=== PATIENT | male | born 1950 | race Caucasian/White ===

== ENCOUNTER 2019-11-02 15:00 | Outpatient (RCR) | payer MEDICARE, SELFPAY ==
[2019-08-23 13:55] VITALS: BMI 28.3
[2019-08-23 13:56] VITALS: BMI 28.3
== END 2019-11-21 23:59 | disposition home or self-care (01) ==
LOC: ANHDMC 15:00
PROVIDERS: Visit Provider Internal Medicine
DX: E11.65 Type 2 diabetes mellitus with hyperglycemia (principal); Z71.3 Dietary counseling and surveillance; Z71.89 Other specified counseling
CPT/HCPCS: 97802; G0108

== ENCOUNTER 2020-03-06 14:30 | Outpatient (RCR) | payer MEDICARE, SELFPAY | END 2020-03-06 16:05 | disposition home or self-care (01) | LOC: ANHDMC 14:30 | PROVIDERS: Visit Provider Internal Medicine | DX: E11.65 Type 2 diabetes mellitus with hyperglycemia (principal); Z71.89 Other specified counseling | CPT/HCPCS: G0108 ==

== ENCOUNTER 2020-06-28 09:59 | Outpatient (CLI) | payer MEDICARE, SELFPAY ==
--- NOTE | ~2020-06-28 | CT_ITS ---
EXAMINATION: CT BRAIN W/O DATE: 06/28/2020 10:30 INDICATION: Frequent falls. Weight loss. TECHNIQUE: Computed tomography (CT) of the head was performed without intravenous contrast. The dose- length product was 605.33 mGy-cm. Automated exposure control and iterative reconstruction technique w ere employed. COMPARISON: CT dated 03/03/2018 FINDINGS: Normal brain parenchymal volume for age. Normal richard-white differentiation. No acute intrac ranial hemorrhage, infarction, mass or mass effect. No ventriculomegaly or midline shift. Midline sagittal images demonstrate a normal corpus callosum, c raniovertebral junction and sella turcica. Basilar cisterns are patent. Paranasal sinuses and mastoids are pneumatized. No depressed skull fractures. IMPRESSION: 1. No acute intracranial abnormality. Reviewed, dictated and finalized at location A.
== END 2020-06-28 10:00 | disposition home or self-care (01) ==
PROVIDERS: PCP Internal Medicine; Visit Provider Internal Medicine
DX: R29.6 Repeated falls (principal)
CPT/HCPCS: 70450

== ENCOUNTER 2020-07-03 13:57 | Outpatient (RCR) | payer MEDICARE, SELFPAY | END 2020-07-03 14:58 | disposition home or self-care (01) | LOC: ANHDMC 13:57 | PROVIDERS: PCP Internal Medicine; Visit Provider Internal Medicine | DX: E11.65 Type 2 diabetes mellitus with hyperglycemia (principal) | CPT/HCPCS: 99199 ==

== ENCOUNTER 2020-07-30 11:26 | Outpatient (CLI) | payer MEDICARE, SELFPAY ==
[2020-07-30 11:47] LABS: Basophils Percent Auto 0.5 % (0.2-1.2); Eosinophils Absolute Auto 0.1 K/mm3 (0-0.3); Eosinophils Percent Auto 1.7 % (0-4.4); Hematocrit 45.5 % (42.0-52.0); Hemoglobin 15.3 g/dL (14.0-18.0); Immature Granulocyte Absolute 0.03 K/mm3 (0.00-0.031); Immature Granulocyte Percent A 0.5 % (0-0.5); Lymphocytes Absolute Auto 1.37 K/mm3 (0.9-3.2); Lymphocytes Percent Auto 21.1 % (18.3-44.2); Mean Corpuscular HGB Conc 33.6 g/dl (32-36); Mean Corpuscular Hemoglobin 30.4 pg (26-34); Mean Corpuscular Volume 90.5 fl (80-100); Mean Platelet Volume 8.2 fl (7.4-10.4); Monocytes Absolute Auto 0.6 K/mm3 (0.1-0.6); Monocytes Percent Auto 9.7 % (2.6-8.5); Neutrophils Absolute Auto 4.3 K/mm3 (1.3-6.7); Neutrophils Percent Auto 66.5 % (45.5-73.1); Platelet Count Result 242 k/mm3 (150-375); Red Blood Count 5.03 M/mm3 (4.6-6.20); Red Cell Distribution Width 11.7 % (11.5-14.5); White Blood Count 6.5 K/mm3 (4.5-10.0)
[2020-07-30 11:52] LABS: Blood Urea Nitrogen 21 mg/dL (8-26); Carbon Dioxide 25 mmol/L (22-30); Chloride 104 mmol/L (98-109); Estimated Glomerular Filt Rate > 60; Glucose 110 mg/dL (70-105); Potassium 4.2 mmol/L (3.5-4.9); Sodium 138 mmol/L (138-146)
[2020-07-30 13:13] LABS: Alanine Aminotransferase 20 U/L (4-50); Albumin Level 4.2 g/dL (3.5-5.1); Alkaline Phosphatase 115 U/L (38-126); Anion Gap 8 mmol/L (8-16); Aspartate Amino Transferase 24 U/L (17-59); Bilirubin,Total 0.4 mg/dL (0.2-1.3); Blood Urea Nitrogen 22 mg/dL (9-20); Carbon Dioxide 26 mmol/L (22-30); Chloride 105 mmol/L (98-107); Estimated Glomerular Filt Rate > 60; Glucose 109 mg/dL (75-110); Potassium 4.5 mmol/L (3.4-5.0); Sodium 139 mmol/L (137-145)
[2020-07-30 13:29] LABS: Immunoglobulin A 373 mg/dL (70-400); Immunoglobulin G 1289 mg/dL (700-1600); Immunoglobulin M 39 mg/dL (40-230)
[2020-08-01 22:55] LABS: Albumin 4.1 g/dL (3.8-4.8); Alpha 1 Globulin 0.3 g/dL (0.2-0.3); Alpha 2 Globulin 0.7 g/dL (0.5-0.9); Beta 1 Globulin 0.5 g/dL (0.4-0.6); Gamma Globulin 1.2 g/dL (0.8-1.7); Protein, Total 7.4 g/dL (6.1-8.1)
[2020-08-01 23:14] LABS: Kappa\\Lambda Light Chains 1.14 (0.26-1.65); Lambda Light Chain 19.6 mg/L (5.7-26.3)
== END 2020-07-30 11:27 | disposition home or self-care (01) ==
PROVIDERS: PCP Internal Medicine; Visit Provider Internal Medicine Hematology & Oncology
DX: D72.9 Disorder of white blood cells, unspecified (principal)
CPT/HCPCS: 36415; 80048; 80053; 82784; 83883; 84155; 84165; 85025; 86334

== ENCOUNTER 2020-09-07 10:01 | Observation (INO) | payer MEDICARE, SELFPAY ==
[2020-09-07] VITALS (10 sets, daily range): BP systolic 93–129; BP diastolic 64–80; PULSE 73–91; RESP 14–20; TEMP 36.6–37.1; O2SAT 92–97; BMI 55.3
--- NOTE | ~2020-09-07 | MR_ITS ---
EXAMINATION: MR cervical spine wo con DATE: 09/10/2020 14:58 INDICATION: Abnormal gait. TECHNIQUE: Magnetic resonance imaging (MRI) of the cervical spine was performed without intravenous c ontrast. Sequences included sagittal T2-weighted FSE, sagittal T2-weighted FS FSE, sagittal T1-weight ed FSE, axial MERGE, and axial T2-weighted FSE. COMPARISON: CT cervical spine 09/07/2020 FINDINGS: There is kyphosis of cervical spine. There are changes of anterior fusion procedure from C5 to C7 with discectomies, healed interbody bone graft, and anterior plate and screws. There is mild c hronic anterior wedging of T1 and T2 vertebral bodies. There is severely decreased disc height at C2- C3, moderately decreased disc height at C3-C4, mildly decreased disc height at C4-C5, and severely de creased disc height at C7-T1 and T1-T2. The spinal cord signal intensity is normal. The following dis c levels are specifically discussed: C2-C3: There is a central extrusion. There is severe bilateral uncovertebral joint osteoarthritis. Th ere is severe left facet joint osteoarthritis. There is ankylosis of right facet joint with severe hy pertrophy. There is moderate bilateral neural foraminal stenosis. There is mild central canal stenosi s with ventral indentation of the spinal cord. C3-C4: The disc is bulging. There is severe bilateral uncovertebral joint osteoarthritis. There is se kiarra bilateral facet joint osteoarthritis. There is severe bilateral neural foraminal stenosis. There is moderate central canal stenosis with ventral and dorsal indentation of the spinal cord. C4-C5: The disc is bulging. There is severe bilateral uncovertebral joint osteoarthritis. There is se kiarra bilateral facet joint osteoarthritis. There is moderate right and severe left neural foraminal s tenosis. There is mild central canal stenosis with ventral indentation of the spinal cord. C5-C6: There is mild right and moderate left uncovertebral joint hypertrophy. There is mild bilateral facet joint hypertrophy. There is mild bilateral neural foraminal stenosis. There is mild central ca nal stenosis. C6-C7: There is moderate bilateral uncovertebral joint hypertrophy. There is no facet joint hypertrop hy. There is mild right and moderate left neural foraminal stenosis. There is no central canal stenos is. C7-T1: The disc is bulging. There is severe bilateral uncovertebral joint osteoarthritis. There is se kiarra bilateral facet joint osteoarthritis. There is mild right and moderate left neural foraminal moreno nosis. There is mild central canal stenosis. IMPRESSION: 1. Severe cervical spondylosis. 2. Anterior fusion procedure from C5 to C7. Reviewed, dictated and finalized at location A.
--- NOTE | ~2020-09-07 | CT_ITS ---
EXAMINATION: CT brain wo con, CT cervical spine wo con EXAM DATE: 09/07/2020 12:56 INDICATION: Head injury, scalp abrasion. Frequent falls. TECHNIQUE: Spiral CT of the head was performed without contrast. Axial, coronal and sagittal images were reviewed. Spiral CT of the cervical spine was performed without contrast. Axial images were rev iewed. Coronal and sagittal reformatted images were also reviewed. The dose-length product (DLP) fo r this examination was 605.33 (accession [id number]), 450.74 (accession [id number]) mGy-cm. The exposure was tailored according to patient size, and iterative reconstruction (ASIR) was used as additional dose reduction technique. Comparison is made to prior examination from 06/28/2020. FINDINGS: HEAD CT: There is no acute intraparenchymal hemorrhage. No evidence of intraparenchymal brain mass l esion. No evidence of acute infarction. There is mild periventricular and subcortical hypodensity, n onspecific but probably related to small vessel ischemic disease. There is mild prominence of the s ulci and ventricles related to cerebral atrophy. There is no mass effect or midline shift. There i s no obstructive hydrocephalus suspected. There are no extra-axial collections. There are no acute calvarial fractures. Patient has had right-sided ocular lens surgery. Small left posterior scalp co ntusion. The visualized sinuses and mastoid air cells are well aerated. CERVICAL CT: Anterior fusion plate C5-6. There is osseous fusion of the C5-7 vertebral bodies. There is severe disc disease at C7-T1, moderate at the upper cervical levels. There is severe left neural f oraminal stenosis at C2-3 and bilaterally at C3-4 there is severe left-sided upper cervical facet art hropathy. Fused right C2-3 facet joints. There is no evidence of acute cervical fracture. The odonto id process is intact. Pre-dens space is normal. Prevertebral soft tissue is normal. There are no s oft tissue abnormalities identified. There is no disc space widening or traumatic vertebral body sub luxation suspected. There is mild reversal of the normal cervical lordosis which may be degenerative, positional or spasm. A detailed level by level evaluation of spondylosis can be added as addendum if requested. IMPRESSION: 1. No acute intracranial findings or cervical fracture. 2. Advanced upper cervical spondylosis. 3. Small posterior scalp contusion. Reviewed, dictated and finalized at location B. IMPRESSION: 1. No acute intracranial findings or cervical fracture. 2. Advanced upper cervical spondylosis. 3. Small posterior scalp contusion.
--- NOTE | ~2020-09-07 | XR_ITS ---
EXAMINATION: XR ribs RT 2V w CXR 2V DATE: 09/07/2020 10:49 INDICATION: Right rib pain. Fall. TECHNIQUE: Frontal and lateral views of the chest and 3 views of the right ribs were obtained. COMPARISON: Chest 2 views 12/22/2016, CT abdomen and pelvis 04/26/2014 FINDINGS: CHEST TWO VIEWS: There is chronic mild elevation of left hemidiaphragm. There is mild atelectasis at left lung base. A calcified left lung nodule and calcified left hilar lymph nodes are consistent with old adenomatous disease. No pleural effusion or pneumothorax. The heart size is normal. There are ch anges of anterior fusion procedure in cervical spine. There are bridging endplate osteophytes at mult iple levels in the spine, consistent with diffuse idiopathic skeletal hyperostosis (DISH). RIGHT RIBS: There are multiple old right rib fractures including nonunion of a fracture of right 10th rib. There are acute fractures of right ninth and 11th ribs. IMPRESSION: 1. Acute fractures of right ninth and 11th ribs. 2. Mild atelectasis at left lung base. Reviewed, dictated and finalized at location A.
--- NOTE | ~2020-09-07 | MR_ITS ---
EXAMINATION: MR brain/brain stem wo con DATE: 09/10/2020 14:58 INDICATION: Abnormal gait. TECHNIQUE: Magnetic resonance imaging (MRI) of the brain and brainstem was performed without intraven ous contrast. Sequences included sagittal and axial T1-weighted FSE, axial diffusion-weighted FS EPI, axial T2*-weighted GRE, axial T2-weighted FLAIR Propeller, and axial T2-weighted Propeller. Apparent diffusion coefficient (ADC) maps were created. COMPARISON: Head CT 09/07/2020, brain MRI 09/27/2014 FINDINGS: There are scattered areas of nonspecific increased T2-weighted signal intensity in the cere bral white matter, which is within normal limits for the patient's age. There is no intracranial hemo rrhage, acute infarction, or abnormal intracranial mass lesion. The ventricles are normal in size. Th e paranasal sinuses are clear. There are likely changes of right ocular lens replacement surgery. The re are trace bilateral mastoid effusions. IMPRESSION: 1. Normal aging brain. Reviewed, dictated and finalized at location A. IMPRESSION: 1. Normal aging brain.
--- NOTE | ~2020-09-07 | CT_ITS ---
EXAMINATION: CT abd pelvis lumbar w con DATE: 09/07/2020 12:56 INDICATION: Abdominal injury. Low back injury. TECHNIQUE: Computed tomography (CT) of the abdomen and pelvis and lumbar spine was performed with 100 mL Omnipaque 350 intravenous contrast. Automated exposure control and iterative reconstruction techn ique were employed. The dose-length product was 1117.99 mGy-cm. COMPARISON: abdomen and pelvis CT 04/26/14, chest two views 12/22/16 FINDINGS: CT ABDOMEN AND PELVIS: The visualized portions of the lung bases demonstrate mild atelectasis. Calcif ied left lung nodules and calcified left hilar lymph nodes are consistent with old granulomatous dise ase. There is a small right pleural effusion. The heart size is normal. There are coronary artery shreyas cifications. There is ectasia of the sinuses of Valsalva measuring 4.5 cm, but motion artifact decrea ses accuracy. There are calcifications of the aortic valve. No pericardial effusion. The liver is nor mal. There are changes of cholecystectomy. Calcifications in the spleen are consistent with old granu lomatous disease. The pancreas, adrenal glands, and right kidney are normal. There is a 3 mm stone in left kidney. The prostate is mildly enlarged. The proximal colon is distended, consistent with adyna shira ileus. There are no pathologically enlarged lymph nodes. There is no free intraperitoneal fluid. There are old healed bilateral rib fractures. There are acute fractures of right eighth, ninth, 10th, 11th, and 12th ribs. There are old healed transverse process fractures in the lumbar spine on the ri ght at L3 and on the left from L1 to L3. CT LUMBAR SPINE: There is dextroscoliosis of thoracolumbar spine. There is 4 mm anterolisthesis of L4 on L5. There is a compression fracture of L1 with 1/5 loss of height. There is severely decreased di sc height at L1-L2 and L2-L3 and mildly decreased disc height at L3-L4 and L4-L5. There is Baastrup d isease at L3-L4 and L4-L5. The following disc levels are specifically discussed: L1-L2: The disc is bulging. There is severe right and mild left facet joint osteoarthritis. There is mild right and moderate left neural foraminal stenosis. There is mild central canal stenosis. L2-L3: The disc is bulging. There is severe bilateral facet joint osteoarthritis. There is moderate b ilateral neural foraminal stenosis. There is mild central canal stenosis. L3-L4: The disc is bulging. There is severe bilateral facet joint osteoarthritis. There is moderate b ilateral neural foraminal stenosis. There is moderate central canal stenosis. L4-L5: The disc is bulging. There is severe bilateral facet joint osteoarthritis. There is moderate b ilateral neural foraminal stenosis. There is mild central canal stenosis. L5-S1: The disc is bulging. There is severe bilateral facet joint osteoarthritis. There is mild bilat eral neural foraminal stenosis. There is mild central canal stenosis. IMPRESSION: 1. Acute fractures of right 8th-12th ribs. 2. Small right pleural effusion. 3. Age-indeterminate L1 compression fracture, new from 12/22/16. 4. Severe lumbar spondylosis. Reviewed, dictated and finalized at location A.
--- NOTE | ~2020-09-07 | XR_ITS ---
EXAMINATION: XR lumbar spine 2-3V DATE: 09/07/2020 10:49 INDICATION: Right-sided low back pain TECHNIQUE: Anteroposterior and lateral views of the lumbar spine, and cone-down lateral view of the l umbosacral junction were obtained. COMPARISON: CT urogram dated 04/26/2014 FINDINGS: 8 mm anterolisthesis L4 on L5. Age-indeterminate L1 compression fracture with 20% anterior vertebral body height loss which is new since 2014. No evident linear lucency or sclerosis or sharply angulated cortex to raise suspicion for acute fracture. Remaining vertebral body heights are normal. Severe di sc height loss at L2-L3. Moderate disc height loss at T10-T11 and T11-T12, mild to moderate disc heig ht loss at L4-L5 and mild disc height loss at L1-L2 and L3-L4. Moderate to severe facet osteoarthriti s in the mid to lower lumbar spine. Mild osteoarthritis at the bilateral sacral iliac joints. Multipl e phleboliths in the pelvis. Cholecystectomy clips in right upper quadrant. IMPRESSION: 1. Age-indeterminate but chronic appearing L1 compression fracture with 20% anterior vertebral body h eight loss, new since 2014. 2. Moderate to severe lumbar spondylosis. Reviewed, dictated and finalized at location A. IMPRESSION: 1. Age-indeterminate but chronic appearing L1 compression fracture with 20% ant erior vertebral body height loss, new since 2014. 2. Moderate to severe lumbar spondylosis.
--- NOTE | 2020-09-07 10:31 | ED.FALL ---
HPI - Fall General Chief Complaint: Fall Stated Complaint: Fall/R Back Pain Time Seen by Provider: 09/07/20 10:04 Source: patient Mode of arrival: wheelchair Limitations: no limitations History of Present Illness HPI Narrative: Patient is a 70 year old male who presents complaining of lumbar spine pain and right rib pain after fall yesterday. Patient reports losing balance at pharmacy after getting Covid vaccine. Patient denies dizziness prior to fall. Patient reports falling and hitting table. He denies hitting head or neck, he is not on anticoagulants. He also reports fall yesterday at home also hitting back but not neck and head. He denies taking otc medications for pain. Patient reports frequent falls because of Parkinson's. He denies chest pain or shortness of breath at this time. MD complaint: fall Related Data Home Medications Medication Instructions Recorded Confirmed albuterol sulfate 90 mcg/actuation 1 puff INHALATION Q4H PRN 05/25/20 07/04/20 aerosol inhaler aspirin 81 mg tablet,delayed 81 mg PO DAILY 05/25/20 07/04/20 release atorvastatin 80 mg tablet 80 mg PO DAILY 05/25/20 07/04/20 bupropion HCl 150 mg tablet,12 hr 150 mg PO BID 05/25/20 07/04/20 sustained-release buspirone 5 mg tablet 5 mg PO TID 05/25/20 07/04/20 cholecalciferol (vitamin D3) 50 50 mcg PO DAILY 05/25/20 07/04/20 mcg (2,000 unit) capsule dapagliflozin 10 mg tablet 10 mg PO DAILY 05/25/20 07/04/20 lisinopril 2.5 mg tablet 2.5 mg PO DAILY 05/25/20 07/04/20 metformin 1,000 mg tablet 1,000 mg PO DAILY 05/25/20 07/04/20 olanzapine 2.5 mg tablet 2.5 mg PO DAILY 05/25/20 07/04/20 omeprazole 20 mg capsule,delayed 20 mg PO DAILY 05/25/20 07/04/20 release pen needle, diabetic 32 gauge x #50 ea 05/25/20 06/19/20/32 sotalol 80 mg tablet 80 mg PO BID tablet 05/25/20 07/04/20 trazodone 100 mg tablet 100 mg PO HS 05/25/20 07/04/20 Allergies Allergy/AdvReac Type Severity Reaction Status Date / Time No Known Drug Allergies Allergy Unknown Unknown Verified 09/07/20 10:13 Review of Systems Review of Systems: Narrative: CONSTITUTIONAL: Denies fever, chills, or sweats. EYES: Denies visual changes, redness, or discharge. ENT: Denies rhinorrhea, congestion, sore throat, or otalgia. CARDIOVASCULAR: Denies chest pain, palpitations, or edema. RESPIRATORY: Denies cough or dyspnea. GASTROINTESTINAL: Denies abdominal pain, nausea, vomiting, or diarrhea. GENITOURINARY: Denies dysuria or hematuria. SKIN: Denies rash or itching. MUSCULOSKELETAL: Reports lumbar back pain and right rib pain. NEUROLOGIC: Denies headache, numbness, dizziness, or weakness. PSYCHIATRIC: Denies anxiety or depression. [facility] Past Medical History Medical History Abnormal weight loss CAD (coronary artery disease) Dysphagia GERD (gastroesophageal reflux disease) History of adenomatous polyp of colon HLD (hyperlipidemia) HTN (hypertension) Parkinsons Social History Social History Smoking packs per day: 1 Smoking cigarettes per day: 20.0 Years smoked: 10 Smoking pack-years: 10.00 Smoking status: Former smoker Tobacco type: cigars Alcohol intake: former Substance use: never Substance use type: does not use Spiritual care concerns: No Comments At the time of signature, I have reviewed and agree with nursing past medical, surgical, social, and family history unless otherwise noted. Please see nursing chart for further information. There is no relevant family history pertinent to the presenting complaint. Exam Narrative: Exam Narrative: GENERAL: Well-appearing, well-nourished, and in no acute distress. HEAD: Normocephalic, atraumatic. EYES: EOMI. No redness or drainage. Conjunctiva are normal. ENT: Mucous membranes pink and moist. CHEST: No respiratory distress. Clear to auscultation. HEART: Regular rate and rhythm. No murmur appreciated
[2020-09-07 11:39] LABS: Basophils Percent Auto 0.4 % (0.2-1.2); Eosinophils Percent Auto 0.3 % (0-4.4); Hematocrit 42.8 % (42.0-52.0); Hemoglobin 14.1 g/dL (14.0-18.0); Immature Granulocyte Absolute 0.02 K/mm3 (0.00-0.031); Immature Granulocyte Percent A 0.3 % (0-0.5); Lymphocytes Absolute Auto 0.69 K/mm3 (0.9-3.2); Lymphocytes Percent Auto 8.8 % (18.3-44.2); Mean Corpuscular HGB Conc 32.9 g/dl (32-36); Mean Corpuscular Hemoglobin 29.9 pg (26-34); Mean Corpuscular Volume 90.9 fl (80-100); Mean Platelet Volume 8.6 fl (7.4-10.4); Monocytes Absolute Auto 0.8 K/mm3 (0.1-0.6); Monocytes Percent Auto 10.2 % (2.6-8.5); Neutrophils Absolute Auto 6.3 K/mm3 (1.3-6.7); Platelet Count Result 206 k/mm3 (150-375); Red Blood Count 4.71 M/mm3 (4.6-6.20); Red Cell Distribution Width 11.9 % (11.5-14.5); White Blood Count 7.8 K/mm3 (4.5-10.0)
[2020-09-07 11:53] LABS: Alanine Aminotransferase 15 U/L (4-50); Albumin Level 4.1 g/dL (3.5-5.1); Alkaline Phosphatase 90 U/L (38-126); Anion Gap 10 mmol/L (8-16); Aspartate Amino Transferase 25 U/L (17-59); Bilirubin,Total 0.7 mg/dL (0.2-1.3); Blood Urea Nitrogen 20 mg/dL (9-20); Carbon Dioxide 24 mmol/L (22-30); Chloride 102 mmol/L (98-107); Estimated CRCL calculation 124 ml/min; Estimated Glomerular Filt Rate > 60; Glucose 162 mg/dL (75-110); Potassium 4.3 mmol/L (3.4-5.0); Sodium 136 mmol/L (137-145)
[2020-09-07 13:35] LABS: Add Urine Microscopic? YES; Appearance Urine Clear (Clear); Bilirubin Urine Negative (Negative); Blood Urine Negative (Negative); Color Urine Yellow (Yellow); Glucose Urine UA 3+ mg/dL (Negative); Ketones Urine Negative (Negative); Leukocyte Esterase Ur Negative LEU/UL (Negative); Nitrate Urine Negative (Negative); Protein Urine Negative (Negative); RBC Urine 0-2 /hpf (0-2); Urobilinogen Urine Negative mg/dL (<2.0); WBC Urine 0-3 /hpf
--- NOTE | 2020-09-07 13:35 | PCCCNOTE ---
Care Coordination spoke with pt about discharge needs. Pt lives at [facility]. He reports he has had some falls recently and feels it may be due to his Parkinson's progressing and is ok to look for SNF placement. Pt gave permission to speak with Kaity [phone] his daughter about his needs. Called Kaity and she requested that orthostatic BP be checked as she feels his falls maybe from multiple meds and she states he is having increased problems hearing. He just has 2nd Covid immunization and now can proceed with cataract surgery. Kaity prefers pt return to [facility] if does not need hospital stay. She would like PT/OT ordered. Communicated this with ED PA.
[2020-09-07 13:36] LABS: Specific Grav Ur 1.037 (1.001-1.035)
--- NOTE | 2020-09-07 16:26 | PCCCNOTE ---
Daughter Kaity requests SNF when pt discharged. Requests [facility]. PT/OT eval and tx ordered. Faxed face sheet and ED MD notes to [facility].
--- NOTE | 2020-09-07 16:37 | PC.NURSE ---
Pts daughter Kaity updated with pts admission status.
--- NOTE | 2020-09-07 18:44 | ADMGEN ---
This patient, Alonzo Armenta, was admitted to Medical Room 344-01. Patient/family oriented to hospital policies and general routines including ID bracelet, bed and alarms, visiting hours, pain management, procedures, bathroom and other care routines, personal items, smoking policy, room service/diet, and visiting hours. Information on how to activate the Rapid Response Team has been discussed. Patient/Family are encouraged to report perceived risks to care and to ask questions if they do not understand what they are told or what they should do.
--- NOTE | 2020-09-07 19:53 | PM.IMHP ---
H&P: HPI History of Present Illness Date/Time: 09/07/20 19:53Thiclaudia is a 70-year-old male patient who resides at [facility]. He has a history of Parkinson's. The patient has been having multiple falls due to his Parkinson's. The patient has been taking depression medicine. He states that he has been feeling depressed because he is not the the man that he used to be and cannot go back to [place] that he was. The patient stated that he feels like he wants to every day. The patient wishes that he would . The patient has had thoughts of killing himself nearly every day now. The patient is in the room crying. He is saying that he always left his ex- and always well. He feels that his children are not there for him and cannot take care of himself. The patient came into the emergency room today because he fell in the pharmacy yesterday after getting his COVID vaccine. The patient did not think that he hit his head however as a head CT was performed and it was read as no acute intracranial findings or cervical fracture. Advanced upper cervical spondylosis. Small posterior scalp contusion. CT of the back was read as acute fractures of right 8th through 12th ribs. Small right pleural effusion. Age indeterminate L1 compression fracture new from 12/22/2016. Severe lumbar spondylosis. Rib chest x-ray acute fractures of right 9th through 11th ribs. Mild atelectasis at left lung base. CT of the cervical spine was read as no acute intracranial findings or cervical fracture. Advanced upper cervical spondylosis. Small posterior scalp contusion. The patient was only given IV Tylenol in the emergency room. The patient was admitted to observation status on the date of service of 09/07/2020. Chief Complaint: Fall with fractured ribs Review of Systems Review of Systems: All systems reviewed & are unremarkable except as noted in HPI and below Constitutional: Constitutional: Reports as per HPI and Reports no additional constitutional complaints Eyes: Eyes: Reports as per HPI and Reports no additional eye complaints ENT: Reports system reviewed and no additional complaints, except as documented and Reports Normal hearing present Cardiovascular: Cardiovascular: Reports no additional cardiovascular complaints Respiratory: Respiratory: Reports no additional respiratory complaints and Reports no additional respiratory complaints Gastrointestinal: Gastrointestinal: Reports as per HPI and Reports no additional gastrointestinal complaints Musculoskeletal: Musculoskeletal: Reports no additional musculoskeletal complaints Integumentary/Breasts: Skin/Breast: Reports system reviewed and no additional complaints, except as docu and Reports as per HPI Neurologic: Reports system reviewed and no additional complaints, except as documented, Reports as per HPI and Reports Normal hearing present Psychiatric: Psychiatric: Reports no additional psychiatric complaints and Reports as per HPI Endocrine: Endocrine: Reports no additional endocrine complaints Hematologic/Lymphatic: Hematologic/Lymphatic: Reports no additional hematologic/lymphatic complaints Allergic/Immunologic: Allergic/Immunologic: Reports no additional allergic/immunologic complaints [facility] Past Medical History Medical History (Updated 09/07/20 @ 20:04 by Uma Velazquez NP) Abnormal weight loss Asthma CAD (coronary artery disease) DM2 (diabetes mellitus, type 2) Dysphagia GERD (gastroesophageal reflux disease) History of adenomatous polyp of colon HLD (hyperlipidemia) HTN (hypertension) Myocardial infarction Obstructive sleep apnea no longer wears a CPAP Parkinsons Surgical History Surgical History (Updated 09/07/20 @ 20:04 by Uma Velazquez NP) H/O colonoscopy with polypectomy History of cataract extraction History of coronary artery stent placement x2 Hx of cholecystectomy S/P appendectomy Family History Family History (Reviewed 09/07/20 @ 2
--- NOTE | 2020-09-07 20:23 | PC.NURSE ---
This patient, Alonzo Armenta, was transferred to [ICU-6] on 09/07/20 at 2023. Personal belongings sent with patient. Report given to [ ]. Appropriate documentation sent with patient.
[2020-09-07] MEDS: HYDROcodone/acetaminophen (*CRX) 5-325 MG TABLET 1 TAB PO (20:46)
[2020-09-07 21:40] LABS: Hemoglobin A1C 7.1 % (<5.7)
[2020-09-07] MEDS: SOTALOL HCL 80 MG TABLET PO (22:17)
[2020-09-07] MEDS: traZODone HCL 50 MG TABLET 100 MG PO (22:17)
[2020-09-07] MEDS: busPIRone HCL 5 MG TABLET PO (22:20)
[2020-09-07] MEDS: CARBIDOPA/LEVODOPA 25/100 MG TABLET 1 TABLET PO (22:21)
[2020-09-07 22:29] LABS: Glucose Point of Care 171 mg/dl (65-105)
--- NOTE | 2020-09-07 22:31 | PC.NURSE ---
This patient, Alonzo Armenta, was received from med/surg on 09/07/20 at 2024. Patient oriented to unit policies and routines
[2020-09-07] MEDS: KETOROLAC 15 MG/ML VIAL (*BKC) IV PUSH (23:33)
[2020-09-08] VITALS (7 sets, daily range): BP systolic 91–114; BP diastolic 64–71; PULSE 65–76; RESP 14–18; TEMP 36.6; O2SAT 95–98
[2020-09-08 05:28] LABS: Basophils Percent Auto 0.8 % (0.2-1.2); Eosinophils Absolute Auto 0.1 K/mm3 (0-0.3); Eosinophils Percent Auto 2.8 % (0-4.4); Hematocrit 40.7 % (42.0-52.0); Hemoglobin 13.5 g/dL (14.0-18.0); Immature Granulocyte Absolute 0.02 K/mm3 (0.00-0.031); Immature Granulocyte Percent A 0.4 % (0-0.5); Lymphocytes Absolute Auto 1.29 K/mm3 (0.9-3.2); Lymphocytes Percent Auto 25.7 % (18.3-44.2); Mean Corpuscular HGB Conc 33.2 g/dl (32-36); Mean Corpuscular Hemoglobin 29.8 pg (26-34); Mean Corpuscular Volume 89.8 fl (80-100); Monocytes Percent Auto 20.5 % (2.6-8.5); Neutrophils Absolute Auto 2.5 K/mm3 (1.3-6.7); Neutrophils Percent Auto 49.8 % (45.5-73.1); Platelet Count Result 201 k/mm3 (150-375); Red Blood Count 4.53 M/mm3 (4.6-6.20); Red Cell Distribution Width 11.7 % (11.5-14.5)
[2020-09-08 05:55] LABS: Albumin Level 3.6 g/dL (3.5-5.1); Alkaline Phosphatase 79 U/L (38-126); Anion Gap 8 mmol/L (8-16); Aspartate Amino Transferase 20 U/L (17-59); Bilirubin,Total 0.4 mg/dL (0.2-1.3); Blood Urea Nitrogen 18 mg/dL (9-20); Calcium 8.9 mg/dL (8.4-10.2); Carbon Dioxide 26 mmol/L (22-30); Chloride 105 mmol/L (98-107); Estimated CRCL calculation 164 ml/min; Estimated Glomerular Filt Rate > 60; Glucose 98 mg/dL (75-110); Sodium 139 mmol/L (137-145)
[2020-09-08 06:16] LABS: Alanine Aminotransferase < 4 U/L (4-50)
[2020-09-08 08:28] LABS: Glucose Point of Care 114 mg/dl (65-105)
[2020-09-08] MEDS: VENLAFAXINE HCL XR 75 MG CAP.ER.24H 150 MG PO (09:08)
[2020-09-08] MEDS: lisinopriL 2.5 MG TABLET PO (09:09)
[2020-09-08] MEDS: CARBIDOPA/LEVODOPA 25/100 MG TABLET 1 TABLET PO ×4 (09:09→20:29)
[2020-09-08] MEDS: busPIRone HCL 5 MG TABLET PO ×3 (09:09→17:21)
[2020-09-08] MEDS: CHOLECALCIFEROL 1,000 UNITS TABLET 2000 UNITS PO (09:09)
[2020-09-08] MEDS: SOTALOL HCL 80 MG TABLET PO ×3 (09:09→17:21)
[2020-09-08] MEDS: rOPINIRole HCL 1 MG TABLET PO ×2 (09:09→20:29)
[2020-09-08] MEDS: metFORMIN HCL 500 MG TABLET 1000 MG PO ×2 (09:09→17:21)
[2020-09-08] MEDS: MAGNESIUM OXIDE 400 MG TABLET PO (09:09)
[2020-09-08] MEDS: PANTOPRAZOLE 40 MG TABLET PO (09:09)
[2020-09-08 11:41] LABS: Glucose Point of Care 202 mg/dl (65-105)
[2020-09-08] MEDS: INSULIN ASPART (*BKC) 100 UNITS/ML SUB-Q (11:45)
[2020-09-08] MEDS: FUROSEMIDE 40 MG TABLET PO (11:45)
--- NOTE | 2020-09-08 13:23 | WPDNEURCNPN ---
Assessment and Plan Assessment and plan (1) Depression with suicidal ideation: Code(s): F32.9 - Major depressive disorder, single episode, unspecified; R45.851 - Suicidal ideations Status: Acute Additional Plan elderly person with ongoing depression with suicidal ideation in addition to history of recent fall getting an acute fracture of the right 8th to 12th rib with small right pleural effusion and age indeterminate L1 compression fracture new from December 22, 2016 with severe lumbar spondylosis patient has been on antidepressant medication but not sure whether he has been compliant additionally has ongoing history of Parkinson disease we will continue his medication as such and also he will need the follow-up in the office he is taking carbidopa levodopa 2501 tablet 4 times a day for the time being it is fine I will reexamine and readjust the dosage accordingly Consult date: 09/08/20 Time Seen: 13:00 HPI: Alonzo Armenta is a 70 year old maleAdmitted to the hospital on [facility] patient carries the diagnosis of Parkinson's disease and has been experiencing recurrent falls in addition patient has been taking antidepressant medication he has been experiencing thoughts of killing himself, being a man of he wanted to be and reportedly he was crying in the room initial evaluation in the emergency room included a CT scan which was negative with no evidence of bleed and the CT scan cervical spine was also without any fracture or dislocation though advanced cervical spondylosis he was also noted to have small posterior scalp contusion in addition CT of the back documented the acute fracture of the right 8 through 12th ribs and small right pleural effusion and indeterminate L1 compression fracture new from December 22, 2016 with severe lumbar spondylosis there was mild atelectasis at the left lung base as well PMFSH Past Medical History Medical History Abnormal weight loss Asthma CAD (coronary artery disease) DM2 (diabetes mellitus, type 2) Dysphagia GERD (gastroesophageal reflux disease) History of adenomatous polyp of colon HLD (hyperlipidemia) HTN (hypertension) Myocardial infarction Obstructive sleep apnea no longer wears a CPAP Parkinsons Surgical History Surgical History H/O colonoscopy with polypectomy History of cataract extraction History of coronary artery stent placement x2 Hx of cholecystectomy S/P appendectomy Family History Family History Father Emphysema lung Mother Cerebrovascular accident Sibling Acute myocardial infarction Sibling Suicide Social History Social History Social History: the patient lives at [facility]. He has a son and a daughter. The patient is a full code and he does not have a durable power commercial litigation attorney for healthcare. His son is Mayo who is the printed circuit boards contact printer. The patient is retired from [employer] . He is . He is a former smoker. He does not use any marijuana or alcohol. Smoking packs per day: 1 Smoking cigarettes per day: 20.0 Years smoked: 10 Smoking pack-years: 10.00 Smoking status: Former smoker Tobacco type: cigars Additional smoking assessment comments: used to smoke occasional cigar Alcohol intake: former Drinks per week: 3 Substance use: never Substance use type: does not use Gender identity (if verbalized by the patient): Male Spiritual care concerns: No Meds Home Medications and Allergies Home Medications Medication Instructions Recorded Confirmed Type albuterol sulfate 90 mcg/actuation 2 puff INHALATION Q4H PRN 05/25/20 09/07/20 History aerosol inhaler buspirone 5 mg tablet 5 mg PO TID 05/25/20 09/07/20 History cholecalciferol (vitamin D3) 50 50 mcg PO DAILY 05/25/20 09/07/20 H
--- NOTE | 2020-09-08 14:03 | PM.DS ---
DS: Summary Time Spent with Patient Time attestation: Total time spent providing and/or coordinating discharge services: DS: Data Data Completed and Pending Labs on day of discharge: Labs from last 24 hours 09/08/20 09/08/20 09/08/20 11:39 08:04 04:10 WBC RBC Hgb Hct MCV MCH MCHC RDW Plt Count MPV Immature Gran % (Auto) Neut % (Auto) Lymph % (Auto) [place] % (Auto) Eos % (Auto) Baso % (Auto) Lymph # (Auto) [place] # (Auto) Eos # (Auto) Baso # (Auto) Abs Immat Gran (auto) Absolute Neuts (auto) Absolute Nucleated RBC Nucleated RBC % Sodium Potassium Chloride Carbon Dioxide Anion Gap BUN Creatinine Estim Creat Clear Calc Estimated GFR Glucose POC Capillary Glucose 202 H 114 H Hemoglobin A1c Calcium Magnesium Total Bilirubin AST ALT Alkaline Phosphatase Total Protein Albumin TSH (Reflex) 1.760 09/08/20 09/08/20 09/07/20 04:10 04:10 22:27 WBC 5.0 RBC 4.53 L Hgb 13.5 L Hct 40.7 L MCV 89.8 MCH 29.8 MCHC 33.2 RDW 11.7 Plt Count 201 MPV 9.0 Immature Gran % (Auto) 0.4 Neut % (Auto) 49.8 Lymph % (Auto) 25.7 [place] % (Auto) 20.5 H Eos % (Auto) 2.8 Baso % (Auto) 0.8 Lymph # (Auto) 1.29 [place] # (Auto) 1.0 H Eos # (Auto) 0.1 Baso # (Auto) 0.0 Abs Immat Gran (auto) 0.02 Absolute Neuts (auto) 2.5 Absolute Nucleated RBC 0.0 Nucleated RBC % 0.0 Sodium 139 Potassium 4.0 Chloride 105 Carbon Dioxide 26 Anion Gap 8 BUN 18 Creatinine 0.60 L Estim Creat Clear Calc 164 Estimated GFR > 60 Glucose 98 POC Capillary Glucose 171 H Hemoglobin A1c Calcium 8.9 Magnesium 2.0 Total Bilirubin 0.4 AST 20 ALT < 4 L Alkaline Phosphatase 79 Total Protein 7.0 Albumin 3.6 TSH (Reflex) 09/07/20 11:30 WBC RBC Hgb Hct MCV MCH MCHC RDW Plt Count MPV Immature Gran % (Auto) Neut % (Auto) Lymph % (Auto) [place] % (Auto) Eos % (Auto) Baso % (Auto) Lymph # (Auto) [place] # (Auto) Eos # (Auto) Baso # (Auto) Abs Immat Gran (auto) Absolute Neuts (auto) Absolute Nucleated RBC Nucleated RBC % Sodium Potassium Chloride Carbon Dioxide Anion Gap BUN Creatinine Estim Creat Clear Calc Estimated GFR Glucose POC Capillary Glucose Hemoglobin A1c 7.1 H Calcium Magnesium Total Bilirubin AST ALT Alkaline Phosphatase Total Protein Albumin TSH (Reflex) Discharge Plan Discharge Attending physician on discharge: Alyssia Henriquez Consulting providers: David Blanco Discharging Clinician: Alyssia Henriquez Anticipated Discharge Date/Time: 09/08/20 14:01 Patient Instructions: Heart Failure (DC) Discharge Medications: New hydrocodone-acetaminophen 5-325 mg Tablet 1 tablet PO Q6H PRN (Reason: Pain) 3 Days Qty: 12 RF: 0 Continued furosemide 40 mg tablet 40 mg PO DAILY RF: 0 ropinirole 1 mg tablet 1 mg PO DAILY RF: 0 venlafaxine 150 mg capsule,extended release 24hr 150 mg PO DAILY RF: 0 magnesium oxide 400 mg (241.3 mg magnesium) tablet 400 mg PO DAILY RF: 0 carbidopa-levodopa 25-100 mg tablet 1 tablet PO QID RF: 0 albuterol sulfate 90 mcg/actuation HFA aerosol inhaler 2 puff inhalation Q4H PRN (Reason: Shortness Of Breath Or Wheezing) RF: 0 buspirone 5 mg tablet 5 mg PO TID RF: 0 lisinopril 2.5 mg tablet 2.5 mg PO DAILY RF: 0 metformin 1,000 mg tablet 1,000 mg PO BID RF: 0 omeprazole 20 mg capsule,delayed release(DR/EC) 20 mg PO DAILY RF: 0 sotalol 80 mg tablet 80 mg PO TID RF: 0 trazodone 100 mg tablet 100 mg PO HS RF: 0 cholecalciferol (vitamin D3) 50 mcg (2,000 unit) capsule 50 mcg PO DAILY RF: 0 olanzapine [Zyprexa] 2.5 mg tablet 2.5 mg PO DAILY RF: 0 Date of admission: 09/07/20 15:56
[2020-09-08 16:14] LABS: Glucose Point of Care 159 mg/dl (65-105)
--- NOTE | 2020-09-08 17:26 | PM.IMPN ---
Progress Note: A&P Assessment and Plan (1) Depression with suicidal ideation: Code(s): F32.9 - Major depressive disorder, single episode, unspecified; R45.851 - Suicidal ideations Status: Acute (2) Multiple fractures of ribs: Qualifiers: Encounter type: initial encounter Fracture type: closed Laterality: right Qualified Code(s): S22.41XA - Multiple fractures of ribs, right side, initial encounter for closed fracture Code(s): S22.49XA - Multiple fractures of ribs, unspecified side, initial encounter for closed fracture Status: Acute Assessment and Plan: (3) DM2 (diabetes mellitus, type 2): Code(s): E11.9 - Type 2 diabetes mellitus without complications Status: Chronic Assessment and Plan: Accu-Cheks AC and HS. Check A1c. He is on metformin at home. (4) HTN (hypertension): Code(s): I10 - Essential (primary) hypertension Status: Chronic (5) Parkinsons: Code(s): G20 - Parkinson's disease Status: Acute (6) HLD (hyperlipidemia): Code(s): E78.5 - Hyperlipidemia, unspecified Status: Chronic Assessment and Plan: Continue with home medications. (7) CAD (coronary artery disease): Code(s): I25.10 - Atherosclerotic heart disease of [place] coronary artery without angina pectoris Status: Acute Assessment and Plan: The patient stated he has history of 2 cardiac stents. He is only on aspirin. (8) GERD (gastroesophageal reflux disease): Code(s): K21.9 - Gastro-esophageal reflux disease without esophagitis Status: Acute Assessment and Plan: Continue with home medication of omeprazole. (9) Asthma: Code(s): J45.909 - Unspecified asthma, uncomplicated Status: Chronic Additional Plan 09/08/2020 Medically patient is stable Continue pain regimen he will require adjustment of his Parkinson's regimen as an outpatient as well as physical therapy and rehab for improved gait stability and safe mobility Neuro recommendations appreciated Continue current care Crisis evaluation Anticipate discharge hopefully to SNF tomorrow if cleared by crisis and accepted to facility. Time Spent With Patient Time with patient: 25 - 35 minutes Subjective Date/time seen: 09/08/20 17:26 Patient doing okay complains of pain improved with Mayer. He is having recurring falls for quite a long time living in an [facility]. He reports that he is upset because he fell down, and feels sad that he is from his of 47 years. Patient has been seen by Neurology no adjustment of medications at this time indications given a follow-up after discharge. Exam Const: General: cooperative, healthy appearing, comfortable, no acute distress, well developed, alert, awake and Physically active Nutritional Appearance: average body habitus and well nourished Orientation/consciousness: oriented to person, oriented to place, oriented to time and patient oriented x3 HENMT: Head: normal to inspection, normocephalic and other ( scalp abrasion small posterior scalp contusion) Ears: hearing grossly normal bilaterally and external ears normal General nose exam: Normal external nose present, Normal nares present and No nasal polyps present Eyes: General: appearance normal, both eyes and all related structures Alignment and Position: alignment normal Periorbital: periorbital findings normal Eyelids: eyelids normal Conjunctivae: conjunctivae normal Sclera: sclerae normal Cornea: corneas normal Pupils: Equal, round and reactive pupils present EOM: EOMs intact bilaterally Neck: Neck: normal visual inspection, full ROM, no lymphadenopathy, trachea midline and supple Chest: Chest palpation & inspection: normal inspection of the chest Resp: Effort & Inspection: normal respiratory effort Auscultation: clear to auscultation bilaterally Cardio: Rate: regular rate Rhythm: regular rhythm Heart sounds: S1 normal heart sound
[2020-09-08] MEDS: traZODone HCL 50 MG TABLET 100 MG PO (20:29)
[2020-09-08] MEDS: KETOROLAC 15 MG/ML VIAL (*BKC) IV PUSH (20:29)
[2020-09-08 22:04] LABS: Glucose Point of Care 185 mg/dl (65-105)
[2020-09-09] VITALS (15 sets, daily range): BP systolic 84–120; BP diastolic 54–75; PULSE 54–74; RESP 16–20; TEMP 36.4–36.9; O2SAT 96–98
[2020-09-09] MEDS: SODIUM CHLORIDE 0.9% IV 500 ML 999 ML IV CONT ×2 (01:28→03:12)
[2020-09-09] MEDS: ACETAMINOPHEN 325 MG TABLET 650 MG PO ×2 (04:15→19:53)
[2020-09-09 05:43] LABS: Hematocrit 39.7 % (42.0-52.0); Mean Corpuscular HGB Conc 32.7 g/dl (32-36); Mean Corpuscular Hemoglobin 30.4 pg (26-34); Mean Corpuscular Volume 92.8 fl (80-100); Mean Platelet Volume 8.9 fl (7.4-10.4); Platelet Count Result 186 k/mm3 (150-375); Red Blood Count 4.28 M/mm3 (4.6-6.20); Red Cell Distribution Width 11.9 % (11.5-14.5); White Blood Count 6.7 K/mm3 (4.5-10.0)
[2020-09-09 05:57] LABS: Anion Gap 5 mmol/L (8-16); Blood Urea Nitrogen 21 mg/dL (9-20); Calcium 8.4 mg/dL (8.4-10.2); Carbon Dioxide 28 mmol/L (22-30); Chloride 103 mmol/L (98-107); Estimated CRCL calculation 142 ml/min; Estimated Glomerular Filt Rate > 60; Glucose 115 mg/dL (75-110); Potassium 3.7 mmol/L (3.4-5.0); Sodium 136 mmol/L (137-145)
[2020-09-09 09:34] LABS: Glucose Point of Care 111 mg/dl (65-105)
[2020-09-09] MEDS: CHOLECALCIFEROL 1,000 UNITS TABLET 2000 UNITS PO (09:51)
[2020-09-09] MEDS: metFORMIN HCL 500 MG TABLET 1000 MG PO ×2 (09:51→17:32)
[2020-09-09] MEDS: MAGNESIUM OXIDE 400 MG TABLET PO (09:51)
[2020-09-09] MEDS: busPIRone HCL 5 MG TABLET PO ×3 (09:51→17:32)
[2020-09-09] MEDS: VENLAFAXINE HCL XR 75 MG CAP.ER.24H 150 MG PO (09:51)
[2020-09-09] MEDS: CARBIDOPA/LEVODOPA 25/100 MG TABLET 1 TABLET PO ×4 (09:52→19:54)
[2020-09-09] MEDS: PANTOPRAZOLE 40 MG TABLET PO (09:52)
[2020-09-09] MEDS: SOTALOL HCL 80 MG TABLET PO ×3 (09:52→17:33)
[2020-09-09] MEDS: KETOROLAC 15 MG/ML VIAL (*BKC) IV PUSH ×2 (10:14→23:09)
[2020-09-09 12:27] LABS: Glucose Point of Care 118 mg/dl (65-105)
[2020-09-09 17:56] LABS: Glucose Point of Care 149 mg/dl (65-105)
--- NOTE | 2020-09-09 18:12 | PM.IMPN ---
Progress Note: A&P Assessment and Plan (1) Depression with suicidal ideation: Code(s): F32.9 - Major depressive disorder, single episode, unspecified; R45.851 - Suicidal ideations Status: Acute (2) Multiple fractures of ribs: Qualifiers: Encounter type: initial encounter Fracture type: closed Laterality: right Qualified Code(s): S22.41XA - Multiple fractures of ribs, right side, initial encounter for closed fracture Code(s): S22.49XA - Multiple fractures of ribs, unspecified side, initial encounter for closed fracture Status: Acute Assessment and Plan: (3) DM2 (diabetes mellitus, type 2): Code(s): E11.9 - Type 2 diabetes mellitus without complications Status: Chronic Assessment and Plan: Accu-Cheks AC and HS. Check A1c. He is on metformin at home. (4) HTN (hypertension): Code(s): I10 - Essential (primary) hypertension Status: Chronic (5) Parkinsons: Code(s): G20 - Parkinson's disease Status: Acute (6) HLD (hyperlipidemia): Code(s): E78.5 - Hyperlipidemia, unspecified Status: Chronic Assessment and Plan: Continue with home medications. (7) CAD (coronary artery disease): Code(s): I25.10 - Atherosclerotic heart disease of [place] coronary artery without angina pectoris Status: Acute Assessment and Plan: The patient stated he has history of 2 cardiac stents. He is only on aspirin. (8) GERD (gastroesophageal reflux disease): Code(s): K21.9 - Gastro-esophageal reflux disease without esophagitis Status: Acute Assessment and Plan: Continue with home medication of omeprazole. (9) Asthma: Code(s): J45.909 - Unspecified asthma, uncomplicated Status: Chronic Additional Plan 09/08/2020 Medically patient is stable Continue pain regimen he will require adjustment of his Parkinson's regimen as an outpatient as well as physical therapy and rehab for improved gait stability and safe mobility Neuro recommendations appreciated Continue current care Crisis evaluation Anticipate discharge hopefully to SNF tomorrow if cleared by crisis and accepted to facility. 09/09/2020 Renal dose lisinopril, Lasix, [place], morphine are on hold due to hypotension overnight No fever no leukocytosis no indications of infection at this time Patient remains medically stable for discharge Pain treated with Toradol Continue insulin sliding scale and metformin Continue Sinemet and patient's psychiatric medications. To SNF tomorrow career development coordinator working on discharge plan Subjective Date/time seen: 09/09/20 12:12 Patient states that he feels okay and is feeling better today. Patient had overnight episode of hypotension reviewed with are in received bolus and responded appropriately. Blood pressure medication and narcotics discontinued. No further episodes of hypotension Exam Const: General: cooperative, healthy appearing, comfortable, no acute distress, well developed, alert, awake and Physically active Nutritional Appearance: average body habitus and well nourished Orientation/consciousness: patient oriented x3 HENMT: Head: normal to inspection, normocephalic and other ( scalp abrasion small posterior scalp contusion) Ears: hearing grossly normal bilaterally and external ears normal General nose exam: Normal external nose present and Normal nares present Eyes: General: appearance normal, both eyes and all related structures Alignment and Position: alignment normal Periorbital: periorbital findings normal Eyelids: eyelids normal Conjunctivae: conjunctivae normal EOM: EOMs intact bilaterally Neck: Neck: normal visual inspection and supple Resp: Effort & Inspection: normal respiratory effort Auscultation: clear to auscultation bilaterally Cardio: Rate: regular rate Rhythm: regular rhythm Heart sounds: S1 normal heart sound present and S2 normal heart sound present Peripheral pu
[2020-09-09] MEDS: traZODone HCL 50 MG TABLET 100 MG PO (19:54)
[2020-09-09] MEDS: rOPINIRole HCL 1 MG TABLET PO (19:55)
[2020-09-09 19:57] LABS: Glucose Point of Care 235 mg/dl (65-105)
[2020-09-10] VITALS (7 sets, daily range): BP systolic 115; BP diastolic 72–78; PULSE 58–71; RESP 16; TEMP 36.1; O2SAT 98; BMI 25.1; BMI 25.7
[2020-09-10 07:08] LABS: Glucose Point of Care 109 mg/dl (65-105)
[2020-09-10 07:56] LABS: Add Urine Microscopic? YES; Appearance Urine Clear (Clear); Bilirubin Urine Negative (Negative); Blood Urine Negative (Negative); Color Urine Yellow (Yellow); Glucose Urine UA 3+ mg/dL (Negative); Ketones Urine Negative (Negative); Leukocyte Esterase Ur Negative LEU/UL (Negative); Mucus Urine Few /lpf; Nitrate Urine Negative (Negative); Protein Urine Negative (Negative); RBC Urine 0-2 /hpf (0-2); Specific Grav Ur 1.017 (1.001-1.035); Urobilinogen Urine Negative mg/dL (<2.0); WBC Urine 0-3 /hpf
[2020-09-10] MEDS: CHOLECALCIFEROL 1,000 UNITS TABLET 2000 UNITS PO (08:00)
[2020-09-10] MEDS: CARBIDOPA/LEVODOPA 25/100 MG TABLET 1 TABLET PO ×2 (08:20→12:55)
[2020-09-10] MEDS: busPIRone HCL 5 MG TABLET PO ×2 (08:20→12:55)
[2020-09-10] MEDS: MAGNESIUM OXIDE 400 MG TABLET PO (08:20)
[2020-09-10] MEDS: metFORMIN HCL 500 MG TABLET 1000 MG PO (08:21)
[2020-09-10] MEDS: VENLAFAXINE HCL XR 75 MG CAP.ER.24H 150 MG PO (08:22)
[2020-09-10] MEDS: PANTOPRAZOLE 40 MG TABLET PO (08:22)
[2020-09-10] MEDS: SOTALOL HCL 80 MG TABLET PO ×2 (08:22→12:55)
[2020-09-10 11:32] LABS: Glucose Point of Care 120 mg/dl (65-105)
--- NOTE | 2020-09-10 15:48 | PM.DS ---
DS: Admitting Diagnosis Admitting Diagnosis Admitting Diagnosis: fall DS: Discharge Diagnosis Discharge Diagnosis (1) DM2 (diabetes mellitus, type 2): Code(s): E11.9 - Type 2 diabetes mellitus without complications Status: Chronic (2) Asthma: Code(s): J45.909 - Unspecified asthma, uncomplicated Status: Chronic (3) Depression with suicidal ideation: Code(s): F32.9 - Major depressive disorder, single episode, unspecified; R45.851 - Suicidal ideations Status: Acute (4) Compression fracture of L1 lumbar vertebra: Code(s): S32.010A - Wedge compression fracture of first lumbar vertebra, initial encounter for closed fracture Status: Acute (5) Multiple fractures of ribs: Qualifiers: Encounter type: initial encounter Fracture type: closed Laterality: right Qualified Code(s): S22.41XA - Multiple fractures of ribs, right side, initial encounter for closed fracture Code(s): S22.49XA - Multiple fractures of ribs, unspecified side, initial encounter for closed fracture Status: Acute (6) GERD (gastroesophageal reflux disease): Code(s): K21.9 - Gastro-esophageal reflux disease without esophagitis Status: Acute (7) CAD (coronary artery disease): Code(s): I25.10 - Atherosclerotic heart disease of [place] coronary artery without angina pectoris Status: Acute (8) HLD (hyperlipidemia): Code(s): E78.5 - Hyperlipidemia, unspecified Status: Chronic (9) Dysphagia: Code(s): R13.10 - Dysphagia, unspecified Status: Acute (10) Parkinsons: Code(s): G20 - Parkinson's disease Status: Acute (11) HTN (hypertension): Code(s): I10 - Essential (primary) hypertension Status: Chronic DS: Summary Hospital Course Hospital Course: # Depression with suicidal ideation: placed on suicide watch. evaluted by crisis team and okayed to be relased to SNF # fall injury with fracture ribs. head ct with small postieor scalp contusion. ct cervical spien with no fractue, advacned upper cervical spondylosis. # multiple fraacture so fribs: conservative managmeent. pain controlled. norco prn if needed. he has not required it as much. # DM2: accucheck ac and hs. a1c 7.1. continue home meds at [facility] emergency department. # HTN: had some intermitetn hypoetension. liely from his medications. resovled with holding temporaility. # Parkinson's diease: neuro consulted. MRI brain and MRI cervical spine unreamarkable. # HLP fanny eds # CAD s/p stents. on aspirin.s tatin # GERD: Omeprazole # [place] # dispositon: OT/OT evalaueted and needed rehabilsistaion. planend for dischare to rehab center. celared per crisis team from his depression stand point. Time Spent with Patient Time attestation: Total time spent providing and/or coordinating discharge services: 40 mins Time spent: Greater than 30 minutes Exam Narrative: Exam Narrative: GENERAL: The patient is well developed, not in acute distress HEENT: Nonicteric sclerae, PERRLA, EOMI. Oropharynx clear. Moist mucous membranes. Conjunctivae appear well perfused. CHEST: Chest wall is nontender. HEART: Regular rate and rhythm without murmur, rubs, or gallops LUNGS: Clear to auscultation bilaterally. no respiratory distress ABDOMEN: Soft, positive bowel sounds, non-tender, no organomegaly. SKIN: No rash, no excessive bruising, petechiae, or purpura. NEUROLOGIC: Cranial nerves II-XII intact, alert and oriented x 3, no gross motor deficits, speech [id number] noted which is chroni EXTREMITIES: no edema, cyanosis or clubbing PSYCH: low mood, no SI or HI DS: Data Data Completed and Pending Labs on day of discharge: Labs from last 24 hours 09/10/20 09/10/20 09/10/20 11:29 07:35 07:03 POC Capillary Glucose 120 H 109 H Urine Color Yellow Urine Appearance Clear Urine pH 5.0 Ur Specific [place] 1.017 Urine Protein Negative Urine Glucose (UA) 3+ H Urine Ketones Negative Ur Blood (Man)
[2020-09-10 16:59] LABS: Glucose Point of Care 128 mg/dl (65-105)
== END 2020-09-10 18:07 ==
LOC: ANHED 10:18 → ANH3MED 16:45 → ANHICU 20:32
PROVIDERS: Hospitalist; Nurse Practitioner; Admitting Provider Family Medicine; Emergency Provider Nurse Practitioner; PCP Internal Medicine; Visit Provider Internal Medicine
DX: E11.9 Type 2 diabetes mellitus without complications (principal); R45.851 Suicidal ideations; F32.9 Major depressive disorder, single episode, unspecified; S22.41XA Multiple fractures of ribs, right side, initial encounter for closed fracture; S32.010A Wedge compression fracture of first lumbar vertebra, initial encounter for closed fracture; S00.03XA Contusion of scalp, initial encounter; W18.39XA Other fall on same level, initial encounter; R29.6 Repeated falls; Z91.81 History of falling; J90 Pleural effusion, not elsewhere classified; G47.33 Obstructive sleep apnea (adult) (pediatric); G20 Parkinson's disease; I25.2 Old myocardial infarction; J45.909 Unspecified asthma, uncomplicated; I25.10 Atherosclerotic heart disease of native coronary artery without angina pectoris; I10 Essential (primary) hypertension; E78.5 Hyperlipidemia, unspecified; M47.812 Spondylosis without myelopathy or radiculopathy, cervical region; K21.9 Gastro-esophageal reflux disease without esophagitis; R13.10 Dysphagia, unspecified; Z87.891 Personal history of nicotine dependence; Z79.51 Long term (current) use of inhaled steroids; Z79.82 Long term (current) use of aspirin; Z79.84 Long term (current) use of oral hypoglycemic drugs; Z95.5 Presence of coronary angioplasty implant and graft
CPT/HCPCS: 36415; 70450; 70551; 71046; 71100; 72100; 72125; 72132; 72141; 74177; 80048; 80053; 81001; 82948; 83036; 83735; 84443; 85025; 85027; 96361; 96365; 96375; 96376; 97110; 97116; 97161; 97165; 97530; 97535; 99285; A9270; G0378; J0131; J1815; J1885; J7040; Q9967

== ENCOUNTER 2020-11-14 15:23 | Emergency (ER) | payer MEDICARE, SELFPAY ==
--- NOTE | ~2020-11-14 | XR_ITS ---
XR knee LT 3V DATE: 11/14/2020 14:52 INDICATION: Fall. Knee injury. TECHNIQUE: 3 views COMPARISON: None FINDINGS: There is prominent tricompartment osteoarthritis, most severe at the patellofemoral and med ial compartments. Suprapatellar knee joint effusion is suggested. No fracture or dislocation, periosteal reaction or bone destruction is detected. No radiopaque intra- articular loose body or chondrocalcinosis is detected. IMPRESSION: Prominent tricompartment osteoarthritis and probable knee joint effusion Reviewed, dictated and finalized at location A. IMPRESSION: Prominent tricompartment osteoarthritis and probable knee joint eff usion
--- NOTE | ~2020-11-14 | XR_ITS ---
EXAMINATION: XR pelvis 1-2V DATE: 11/14/2020 14:52 INDICATION: Pelvis injury. TECHNIQUE: An anteroposterior view of the pelvis was obtained. COMPARISON: CT abdomen and pelvis 09/07/2020 FINDINGS: There is lumbar dextroscoliosis and severe spondylosis. No fracture. There is mild osteoart hritis of the hips. IMPRESSION: 1. Mild osteoarthritis of the hips. Reviewed, dictated and finalized at location A.
--- NOTE | ~2020-11-14 | CT_ITS ---
EXAMINATION: CT brain wo con DATE: 11/14/2020 14:57 INDICATION: Fall. Head injury. TECHNIQUE: Computed tomography (CT) of the head was performed without intravenous contrast. The mA wa s adjusted according to patient size. Iterative reconstruction technique was employed. Exam dose: 60 5.33 mGy-cm total exam DLP. COMPARISON: 09/07/2020 CT brain FINDINGS: Examination is mildly limited by motion artifact. No intracranial mass lesion or hemorrhage or cerebrovascular accident is evident. No subdural or epid ural hematoma. Bilateral carotid siphon and supraclinoid internal carotid artery calcifications. There is nonspecifi c diminished attenuation cerebral white matter, likely due to chronic small vessel ischemic changes. No fracture or bone destruction of the cranial vault. The mastoid air cells and included paranasal sinuses are normally developed and aerated. No fracture or bone destruction of the cranial vault. IMPRESSION: No skull fracture or acute intracranial finding is evident; examination is limited by mo tion artifact Reviewed, dictated and finalized at [facility]. Reviewed, dictated and finalized at location A. IMPRESSION: No skull fracture or acute intracranial finding is evident; examin ation is limited by motion artifact
[2020-11-14 13:32] VITALS: BP 103/65; PULSE 74; RESP 16; TEMP 36.7; O2SAT 95
[2020-11-14 14:36] VITALS: BP 103/65; PULSE 74; RESP 18; TEMP 36.7; O2SAT 99
--- NOTE | 2020-11-14 14:46 | ED.LOWEXIN ---
HPI - Extremity Injury (Lower) General Chief Complaint: Extremity Injury, Lower Stated Complaint: left knee pain Source: RN notes reviewed History of Present Illness HPI Narrative: Patient presents to emergency department from assisted living for a fall. Patient states he was trying to lock his door when he lost his balance falling striking his left knee he states he fell down onto the left knee states he is unsure if he struck his head he denies any other trauma or injury denies any chest pain or shortness of breath pain does not bilateral arms of the right leg Related Data Home Medications Medication Instructions Recorded Confirmed albuterol sulfate 90 mcg/actuation 2 puff INHALATION Q4H PRN 05/25/20 09/07/20 aerosol inhaler buspirone 5 mg tablet 5 mg PO TID 05/25/20 09/07/20 cholecalciferol (vitamin D3) 50 50 mcg PO DAILY 05/25/20 09/07/20 mcg (2,000 unit) capsule lisinopril 2.5 mg tablet 2.5 mg PO DAILY 05/25/20 09/07/20 metformin 1,000 mg tablet 1,000 mg PO BID 05/25/20 09/07/20 omeprazole 20 mg capsule,delayed 20 mg PO DAILY 05/25/20 09/07/20 release trazodone 100 mg tablet 100 mg PO HS 05/25/20 09/07/20 carbidopa-levodopa 1 tablet PO QID 09/07/20 09/07/20 furosemide 40 mg PO DAILY 09/07/20 09/07/20 magnesium oxide 400 mg PO DAILY 09/07/20 09/07/20 ropinirole 1 mg PO HS 09/07/20 09/08/20 venlafaxine 150 mg PO DAILY 09/07/20 09/07/20 Tresiba FlexTouch U-200 20 unit SUBCUT 09/09/20 09/09/20 Allergies Allergy/AdvReac Type Severity Reaction Status Date / Time No Known Drug Allergies Allergy Unknown Unknown Verified 11/14/20 14:44 Review of Systems Review of Systems: Gen.: Denies fevers or chills Eyes: Denies eye pain or visual change ENT: Denies facial pain Respiratory: Denies shortness of breath CV: Denies chest pain GI: Denies abdominal pain nausea, emesis Musculoskeletal: See HPI Neuro: Denies headache or loss of consciousness Skin: Denies rash Except as documented, all other systems reviewed and negative [facility] Past Medical History Medical History Abnormal weight loss Asthma CAD (coronary artery disease) DM2 (diabetes mellitus, type 2) Dysphagia GERD (gastroesophageal reflux disease) History of adenomatous polyp of colon HLD (hyperlipidemia) HTN (hypertension) Myocardial infarction Obstructive sleep apnea no longer wears a CPAP Parkinsons Surgical History Surgical History H/O colonoscopy with polypectomy History of cataract extraction History of coronary artery stent placement x2 Hx of cholecystectomy S/P appendectomy Family History Family History Father Emphysema lung Mother Cerebrovascular accident Sibling Acute myocardial infarction Sibling Suicide Social History Social History Social History: the patient lives at [facility]. He has a son and a daughter. The patient is a full code and he does not have a durable power staff attorney for healthcare. His son is Mayo who is the contact center professional. The patient is retired from [employer] . He is . He is a former smoker. He does not use any marijuana or alcohol. Smoking packs per day: 1 Smoking cigarettes per day: 20.0 Years smoked: 10 Smoking pack-years: 10.00 Smoking status: Former smoker Tobacco type: cigars Additional smoking assessment comments: used to smoke occasional cigar Alcohol intake: former Drinks per week: 3 Substance use: never Substance use type: does not use Gender identity (if verbalized by the patient): Male Spiritual care concerns: No Exam Narrative: APPEARANCE: No acute distress, nontoxic, resting in bed EYES: EOMI HEENT: Normocephalic, atraumatic, OMM RESPIRATORY: No respiratory distress Clear to auscultation bilaterally with no rhonchi wheezing
[2020-11-14] MEDS: HYDROcodone/acetaminophen (*CRX) 5-325 MG TABLET 1 TAB PO (15:17)
== END 2020-11-14 16:04 ==
PROVIDERS: Emergency Provider Emergency Medicine; PCP Internal Medicine
DX: S80.02XA Contusion of left knee, initial encounter (principal); J45.909 Unspecified asthma, uncomplicated; I25.10 Atherosclerotic heart disease of native coronary artery without angina pectoris; E11.9 Type 2 diabetes mellitus without complications; E78.5 Hyperlipidemia, unspecified; I10 Essential (primary) hypertension; I25.2 Old myocardial infarction; G47.33 Obstructive sleep apnea (adult) (pediatric); G20 Parkinson's disease; K21.9 Gastro-esophageal reflux disease without esophagitis; Z98.49 Cataract extraction status, unspecified eye; Z95.5 Presence of coronary angioplasty implant and graft; Z86.010 Personal history of colon polyps; Z79.84 Long term (current) use of oral hypoglycemic drugs; Z87.891 Personal history of nicotine dependence; M16.0 Bilateral primary osteoarthritis of hip; M17.12 Unilateral primary osteoarthritis, left knee
CPT/HCPCS: 70450; 72170; 73562; 99284; A9270

== ENCOUNTER 2020-11-15 08:02 | Inpatient (IN) | payer MEDICARE, SELFPAY ==
[2020-11-15] VITALS (7 sets, daily range): BP systolic 117–132; BP diastolic 63–87; PULSE 75–92; RESP 17–28; TEMP 36.7–36.8; O2SAT 90–94; BMI 25.8
--- NOTE | ~2020-11-15 | XR_ITS ---
EXAMINATION: XR surgery orthopedic DATE: 11/23/2020 15:13 INDICATION: Left femoral neck fracture. TECHNIQUE: A single intraoperative view of the pelvis was obtained. COMPARISON: Pelvis and left hip radiographs 11/22/2020 FINDINGS: There are changes of resection of proximal left femur. There is a broach in the proximal le ft femur. There is mild right hip osteoarthritis. IMPRESSION: 1. Left hip arthroplasty in progress. Reviewed, dictated and finalized at location B.
--- NOTE | ~2020-11-15 | XR_ITS ---
EXAMINATION: XR knee LT 3V DATE: 11/15/2020 09:13 INDICATION: Left knee injury and pain. TECHNIQUE: 3 views of left knee were obtained. COMPARISON: Left knee radiographs 11/14/2020 FINDINGS: There is varus angulation at the knee. No fracture. There is severe osteoarthritis of media l and patellofemoral compartments and moderate osteoarthritis of lateral compartment. There is a mode rate-sized knee joint effusion. There are loose bodies in the posterior knee joint and in a Felton's c yst. IMPRESSION: 1. Severe left knee osteoarthritis. 2. Moderate-sized left knee joint effusion with loose bodies. Reviewed, dictated and finalized at location A.
--- NOTE | ~2020-11-15 | XR_ITS ---
XR chest 2V 11/15/2020 09:13 Indication: Low oxygen saturation Procedure: AP and lateral views of the chest Comparison: Comparison to multiple prior studies sequentially, with oldest reviewed study dated 11/19. Findings: Left basilar airspace disease. Heart size normal. Right lung clear. No significant effusion . Mild elevation of the left diaphragm. Impression: 1: Left basilar airspace disease may represent atelectasis or pneumonia. Reviewed, dictated and finalized at location A. Impression: 1: Left basilar airspace disease may represent atelectasis or pneumonia.
--- NOTE | ~2020-11-15 | XR_ITS ---
XR hip LT 1V w AP pelvis DATE: 11/23/2020 15:44 INDICATION: Left bipolar hip replacement TECHNIQUE: Postoperative AP and crosstable lateral views COMPARISON: 11/21/2020 left hip FINDINGS: There is resection of the left femoral head and placement of a left bipolar hip prosthesis which is normally seated in the left acetabular fossa. There is expected postoperative subcutaneous emphysema and surgical drain at the left hip.. IMPRESSION: Left bipolar hip replacement Reviewed, dictated and finalized at location A.
--- NOTE | ~2020-11-15 | XR_ITS ---
EXAMINATION: XR barium swallow modified DATE: 11/17/2020 10:22 INDICATION: Dysphagia TECHNIQUE: Modified barium esophagram was performed by myself to administered fluoroscopy, in conjun ction with speech pathologist who administered barium in varying consistencies as per speech patholog ist documentation. This was recorded on tape. A single fluoroscopic spot image was recorded. The DAP for this procedure was 4.84 Gycm2. Fluoroscopy exposure time was 4.7 minutes. FINDINGS: Oral stage: Adequate function. Pharyngeal phase: Reduced pharyngeal elevation, reduced tongue base retraction, reduced pharyngeal sq ueeze, vallecular and piriform sinus . Laryngeal penetration: Present. Aspiration: Present. Laryngeal sensitivity: Present. IMPRESSION: Abnormal modified barium swallow as described above. Please refer to speech pathologist f indings and specific feeding recommendations. Reviewed, dictated and finalized at location A. IMPRESSION: Abnormal modified barium swallow as described above. Please refer t o speech pathologist findings and specific feeding recommendations.
--- NOTE | ~2020-11-15 | XR_ITS ---
EXAMINATION: XR hip LT min 2V DATE: 11/21/2020 15:20 INDICATION: Left hip pain. TECHNIQUE: 2 views of left hip were obtained. COMPARISON: Pelvis radiograph 11/14/2020 FINDINGS: There is a subcapital fracture of left femoral neck. The distal fracture fragment demonstra alexander impaction with 2.3 cm shortening and 10 mm lateral displacement. There is mild left hip osteoarth ritis. There is severe lumbar spondylosis. IMPRESSION: 1. Subchondral fracture of left femoral neck. 2. Mild left hip osteoarthritis. Reviewed, dictated and finalized at location B.
--- NOTE | ~2020-11-15 | XR_ITS ---
XR hip RT 2V w AP pelvis DATE: 11/22/2020 16:58 INDICATION: Left femoral neck fracture TECHNIQUE: AP pelvis. AP and lateral views of right hip COMPARISON: 11/14/2020 pelvis FINDINGS: Left subcapital femoral neck fracture with superolateral displacement. Osteopenia. Mild osteitis pubis. There is degenerative change versus osteitis condensans ilii at the sacroiliac joints. No pelvic fracture or bone destruction is detected. There is no evidence of dislocation at either hip. No recent fracture of the right hip is detected. M ild bilateral hip osteoarthritis. IMPRESSION: Left subcapital femoral neck fracture Reviewed, dictated and finalized at location A.
--- NOTE | 2020-11-15 08:06 | ECG_ITS ---
Measurements Intervals [place] Rate: 68 P: 88 RI: 156 QRS: 1 QRSD: 97 T: 31 QT: 416 QTc: 445 Interpretive Statements SINUS RHYTHM BASELINE ARTIFACT- II, III, AVL, AVF NORMAL ECG Electronically Signed On 11-15-2020 9:03:08 CDT by John Greco D.O.
--- NOTE | 2020-11-15 08:08 | ED.FALL ---
HPI - Fall General Chief Complaint: Fall Stated Complaint: knee pain History of Present Illness HPI Narrative: 70 yo male w/ h/o Parkinson's disease presents to the ED from assisted living after a fall. He had an unwitnessed fall from standing. He denies dizziness or syncope.He denies hitting his head. His only complaint is left knee pain. This is his second fall in less than 24 hours. He reports that he injured his knee in the first fall. Related Data Home Medications Medication Instructions Recorded Confirmed albuterol sulfate 90 mcg/actuation 2 puff INHALATION Q4H PRN 05/25/20 11/15/20 aerosol inhaler buspirone 5 mg tablet 5 mg PO TID 05/25/20 11/15/20 cholecalciferol (vitamin D3) 50 50 mcg PO DAILY 05/25/20 11/15/20 mcg (2,000 unit) capsule lisinopril 2.5 mg tablet 2.5 mg PO DAILY 05/25/20 11/15/20 metformin 1,000 mg tablet 1,000 mg PO BID 05/25/20 11/15/20 omeprazole 20 mg capsule,delayed 20 mg PO DAILY 05/25/20 11/15/20 release trazodone 100 mg tablet 100 mg PO HS 05/25/20 11/15/20 carbidopa-levodopa 1 tablet PO QID 09/07/20 11/15/20 furosemide 40 mg PO DAILY 09/07/20 11/15/20 magnesium oxide 400 mg PO DAILY 09/07/20 11/15/20 ropinirole 1 mg PO HS 09/07/20 11/15/20 venlafaxine 150 mg PO DAILY 09/07/20 11/15/20 Tresiba FlexTouch U-200 20 unit SUBCUT 09/09/20 11/15/20 Allergies Allergy/AdvReac Type Severity Reaction Status Date / Time No Known Allergies Allergy Verified 11/15/20 08:12 Review of Systems Review of Systems: All systems reviewed & are unremarkable except as noted in HPI and below PMFSH Past Medical History Medical History Abnormal weight loss Asthma CAD (coronary artery disease) Compression fracture of L1 lumbar vertebra Depression with suicidal ideation (~09/2020) DM2 (diabetes mellitus, type 2) Dysphagia GERD (gastroesophageal reflux disease) History of adenomatous polyp of colon HLD (hyperlipidemia) HTN (hypertension) Myocardial infarction Obstructive sleep apnea no longer wears a CPAP Parkinsons Surgical History Surgical History H/O colonoscopy with polypectomy History of cataract extraction History of coronary artery stent placement x2 Hx of cholecystectomy S/P appendectomy Family History Family History Father Emphysema lung Mother Cerebrovascular accident Sibling Acute myocardial infarction Sibling Suicide Social History Social History Social History: The patient lives at [facility]. He has a son and a daughter. The patient is retired from [employer] . He is . He is a former smoker. He does not use any marijuana or alcohol. Primary care physician: Dr. La Herm[place] Code status: Full code Surrogate decision maker: Mayo (son) Smoking packs per day: 1 Smoking cigarettes per day: 20.0 Years smoked: 10 Smoking pack-years: 10.00 Smoking status: Former smoker Additional smoking assessment comments: used to smoke occasional cigar Alcohol intake: former Drinks per week: 3 Substance use: never Substance use type: does not use Gender identity (if verbalized by the patient): Male Spiritual care concerns: No Exam Const: General: no acute distress and alert Orientation/consciousness: patient oriented x3 Other: frail HENMT: Head: normal to inspection Neck: Neck: normal visual inspection Resp: Effort & Inspection: normal respiratory effort Auscultation: clear to auscultation bilaterally Cardio: Rate: regular rate Rhythm: regular rhythm GI: GI Palp: Yes Soft to palpation and No Tenderness to palpation present (GI) Skin: General skin exam: normal color Neuro: General: patient oriented x3, moves all extremities, no focal motor deficits and CN's II-XI intact bi
[2020-11-15] MEDS: HYDROcodone/acetaminophen (*CRX) 5-325 MG TABLET 1 TAB PO ×2 (08:18→14:55)
--- NOTE | 2020-11-15 08:31 | PC.NURSE ---
Pt given urinal at this time, requesting more time to provide u/a prior to straight cath. Pt given call light.
[2020-11-15 08:41] LABS: Basophils Percent Auto 0.3 % (0.2-1.2); Eosinophils Absolute Auto 0.3 K/mm3 (0-0.3); Eosinophils Percent Auto 2.6 % (0-4.4); Hematocrit 42.1 % (42.0-52.0); Hemoglobin 13.9 g/dL (14.0-18.0); Immature Granulocyte Absolute 0.06 K/mm3 (0.00-0.031); Immature Granulocyte Percent A 0.5 % (0-0.5); Lymphocytes Absolute Auto 0.89 K/mm3 (0.9-3.2); Lymphocytes Percent Auto 7.8 % (18.3-44.2); Mean Corpuscular Hemoglobin 29.6 pg (26-34); Mean Corpuscular Volume 89.6 fl (80-100); Mean Platelet Volume 9.1 fl (7.4-10.4); Monocytes Percent Auto 9.2 % (2.6-8.5); Neutrophils Percent Auto 79.6 % (45.5-73.1); Platelet Count Result 199 k/mm3 (150-375); Red Cell Distribution Width 12.1 % (11.5-14.5); White Blood Count 11.4 K/mm3 (4.5-10.0)
[2020-11-15 08:55] LABS: INR 1.2; Prothrombin Time 14.6 Seconds (11.1-14.7)
[2020-11-15 08:56] LABS: Partial Thromboplastin Time 26.2 SECONDS (22.3-36.8)
--- NOTE | 2020-11-15 09:02 | PC.NURSE ---
Pt to XRAY via stretcher at this time. VSS.
[2020-11-15 09:14] LABS: Alanine Aminotransferase 10 U/L (4-50); Albumin Level 4.3 g/dL (3.5-5.1); Alkaline Phosphatase 109 U/L (38-126); Anion Gap 10 mmol/L (8-16); Aspartate Amino Transferase 32 U/L (17-59); Bilirubin,Total 0.9 mg/dL (0.2-1.3); Blood Urea Nitrogen 23 mg/dL (9-20); Calcium 9.3 mg/dL (8.4-10.2); Carbon Dioxide 23 mmol/L (22-30); Chloride 100 mmol/L (98-107); Estimated CRCL calculation 124 ml/min; Estimated Glomerular Filt Rate > 60; Glucose 127 mg/dL (65-110); Potassium 4.3 mmol/L (3.4-5.0); Sodium 133 mmol/L (137-145)
[2020-11-15 09:26] LABS: Add Urine Microscopic? YES; Appearance Urine Clear (Clear); Bilirubin Urine Negative (Negative); Blood Urine Negative (Negative); Color Urine Yellow (Yellow); Glucose Urine UA 3+ mg/dL (Negative); Ketones Urine Trace mg/dL (Negative); Leukocyte Esterase Ur Negative LEU/UL (Negative); Mucus Urine Rare /lpf; Nitrate Urine Negative (Negative); Protein Urine Negative (Negative); RBC Urine 0-2 /hpf (0-2); Urobilinogen Urine Negative mg/dL (<2.0); WBC Urine 0-3 /hpf
[2020-11-15 09:44] LABS: Specific Grav Ur 1.035 (1.001-1.035)
[2020-11-15] MEDS: MORPHINE SULFATE (*CRX) 2 MG/ML INJ IV PUSH (11:32)
--- NOTE | 2020-11-15 13:18 | PM.IMHP ---
H&P: HPI History of Present Illness Date/Time: 11/15/20 13:18 Chief Complaint: Fall Narrative: 70-year-old male with past medical history of diabetes, hypertension, depression and insulin-dependent diabetes mellitus who presented to the ER via EMS from assisted living after recurrent fall. The patient had fallen twice in under 24 hours. He was found on the floor by assisted living staff this morning. He complains of left knee pain that is 10/10 at worst and currently is 8/10 after Olar administration. He does have a large joint effusion x-ray but knee does not appear impressive on visual exam. He does have significant chronic arthritic changes. He was trying to get out of bed and get to his wheelchair to go to the restroom when he fell. He denies having his head or had any loss of consciousness. He does have a chronic cough with white sputum production. He reports that his cough is increased from baseline. He has some chronic shortness of breath that is not changed from baseline. He has had both of his COVID vaccines. He denies any chest pain, fevers, chills or known ill contacts. His daughter is a employee at a surgical center. She is not a nurse but she has called the nurses multiple times and states that she does not want the patient discharged on any pain medications. The patient had a history of suicidal ideation during his last hospitalization in September but denies any suicidal ideation currently. He has been taking all of his medications as directed. He denies any lightheadedness or dizziness with standing. Currently the patient is unable to move himself around in the bed and has called nursing staff multiple times to reposition him in bed. He states that he plans to return to assisted living. Review of Systems Review of Systems: 12 systems were reviewed with pertinent positives and negatives per HPI. Except as documented in the HPI, all other systems were reviewed and are negative. [facility] Past Medical History Medical History (Updated 11/15/20 @ 13:48 by Yolanda Lee DO) Abnormal weight loss Asthma CAD (coronary artery disease) Compression fracture of L1 lumbar vertebra Depression with suicidal ideation (~09/2020) DM2 (diabetes mellitus, type 2) Dysphagia GERD (gastroesophageal reflux disease) History of adenomatous polyp of colon HLD (hyperlipidemia) HTN (hypertension) Myocardial infarction Obstructive sleep apnea no longer wears a CPAP Parkinsons Surgical History Surgical History H/O colonoscopy with polypectomy History of cataract extraction History of coronary artery stent placement x2 Hx of cholecystectomy S/P appendectomy Family History Family History Father Emphysema lung Mother Cerebrovascular accident Sibling Acute myocardial infarction Sibling Suicide Social History Social History (Updated 11/15/20 @ 13:31 by Yolanda Lee DO) Social History: The patient lives at [facility]. He has a son and a daughter. The patient is retired from [employer] . He is . He is a former smoker. He does not use any marijuana or alcohol. Primary care physician: Dr. La Hermosillo Code status: Full code Surrogate decision maker: Mayo (son) Smoking packs per day: 1 Smoking cigarettes per day: 20.0 Years smoked: 10 Smoking pack-years: 10.00 Smoking status: Former smoker Additional smoking assessment comments: used to smoke occasional cigar Alcohol intake: former Drinks per week: 3 Substance use: never Substance use type: does not use Gender identity (if verbalized by the patient): Male Spiritual care concerns: No Meds Home Medications and Allergies Home Medications Medication Instructions Recorded Confirmed Type albuterol sulfate 90 mcg/actuation 2 puff INHALATION Q4H PRN 05/25/20 11/15/20 History aerosol inhaler
--- NOTE | 2020-11-15 14:59 | PC.NURSE ---
This patient, Alonzo Armenta, was admitted to [facility] Surg Room 327-01. Patient/family oriented to hospital policies and general routines including ID bracelet, bed and alarms, visiting hours, pain management, procedures, bathroom and other care routines, personal items, smoking policy, room service/diet, and visiting hours. Information on how to activate the Rapid Response Team has been discussed. Patient/Family are encouraged to report perceived risks to care and to ask questions if they do not understand what they are told or what they should do.
[2020-11-15 18:11] LABS: Glucose Point of Care 127 mg/dl (65-105)
[2020-11-15 20:10] LABS: SARS-CoV-2 RNA PCR Negative
[2020-11-15] MEDS: busPIRone HCL 5 MG TABLET PO (21:30)
[2020-11-15] MEDS: traZODone HCL 50 MG TABLET 100 MG PO (21:33)
[2020-11-15] MEDS: OLANZapine 2.5 MG TABLET PO (21:36)
[2020-11-15] MEDS: CARBIDOPA/LEVODOPA 25/100 MG TABLET 1 TABLET PO (21:37)
[2020-11-15] MEDS: rOPINIRole HCL 1 MG TABLET PO (21:37)
[2020-11-15] MEDS: SOTALOL HCL 80 MG TABLET PO (21:38)
[2020-11-15] MEDS: ALBUTEROL SULFATE (*SP) AEROSOL 1 PUFF 4 PUFF INHALATION (22:32)
[2020-11-15 23:37] LABS: Glucose Point of Care 111 mg/dl (65-105)
[2020-11-16] VITALS (15 sets, daily range): BP systolic 96–132; BP diastolic 46–85; PULSE 72–99; RESP 16–24; TEMP 36.4–37.3; O2SAT 90–95
[2020-11-16] MEDS: ALBUTEROL SULFATE (*SP) AEROSOL 1 PUFF 4 PUFF INHALATION ×3 (03:51→21:08)
[2020-11-16 06:26] LABS: Hemoglobin 13.9 g/dL (14.0-18.0); Mean Corpuscular HGB Conc 33.1 g/dl (32-36); Mean Corpuscular Hemoglobin 29.1 pg (26-34); Mean Corpuscular Volume 88.1 fl (80-100); Mean Platelet Volume 8.8 fl (7.4-10.4); Platelet Count Result 186 k/mm3 (150-375); Red Blood Count 4.77 M/mm3 (4.6-6.20); Red Cell Distribution Width 12.1 % (11.5-14.5); White Blood Count 10.3 K/mm3 (4.5-10.0)
[2020-11-16 06:48] LABS: Anion Gap 10 mmol/L (8-16); Blood Urea Nitrogen 18 mg/dL (9-20); Calcium 8.4 mg/dL (8.4-10.2); Carbon Dioxide 21 mmol/L (22-30); Chloride 98 mmol/L (98-107); Estimated CRCL calculation 124 ml/min; Estimated Glomerular Filt Rate > 60; Glucose 83 mg/dL (65-110); Potassium 3.9 mmol/L (3.4-5.0); Sodium 129 mmol/L (137-145)
[2020-11-16 08:20] LABS: Glucose Point of Care 86 mg/dl (65-105)
[2020-11-16] MEDS: PANTOPRAZOLE 40 MG TABLET PO (09:03)
[2020-11-16] MEDS: SOTALOL HCL 80 MG TABLET PO ×3 (09:03→16:27)
[2020-11-16] MEDS: busPIRone HCL 5 MG TABLET PO ×3 (09:03→16:27)
[2020-11-16] MEDS: CARBIDOPA/LEVODOPA 25/100 MG TABLET 1 TABLET PO ×4 (09:03→20:20)
[2020-11-16] MEDS: metFORMIN HCL 500 MG TABLET 1000 MG PO (09:03)
[2020-11-16] MEDS: lisinopriL 2.5 MG TABLET PO (09:03)
[2020-11-16] MEDS: VENLAFAXINE HCL XR 75 MG CAP.ER.24H 150 MG PO (09:03)
[2020-11-16] MEDS: MAGNESIUM OXIDE 400 MG TABLET PO (09:05)
[2020-11-16] MEDS: CHOLECALCIFEROL 1,000 UNITS TABLET 2000 UNITS PO (09:05)
[2020-11-16 11:45] LABS: Glucose Point of Care 100 mg/dl (65-105)
[2020-11-16 12:04] LABS: CRP 16.1 mg/dL (<1.0)
[2020-11-16] MEDS: SODIUM CHLORIDE 0.9% IV 1,000 ML 100 ML IV CONT (12:21)
[2020-11-16 12:40] LABS: Erythrocyte Sedimentation Rate 24 mm/hr (0-20)
--- NOTE | 2020-11-16 14:12 | PCSTNOTE ---
Please refer to the Bedside Swallow Evaluation in the EMR. Please note, silent aspiration cannot be ruled out at bedside.
--- NOTE | 2020-11-16 15:25 | PCSTNOTE ---
Modified Barium Swallow study will be attempted tomorrow, Thursday, due to Radiology order issues.
[2020-11-16 18:01] LABS: Glucose Point of Care 154 mg/dl (65-105)
--- NOTE | 2020-11-16 19:26 | PM.IMPN ---
Progress Note: A&P Assessment and Plan (1) Effusion of left knee: Code(s): M25.462 - Effusion, left knee Status: Acute (2) Pneumonia: Qualifiers: Pneumonia type: due to unspecified organism Laterality: left Lung location: lower lobe of lung Qualified Code(s): J18.9 - Pneumonia, unspecified organism Code(s): J18.9 - Pneumonia, unspecified organism Status: Acute (3) Fall: Qualifiers: Encounter type: initial encounter Qualified Code(s): W19.XXXA - Unspecified fall, initial encounter Code(s): W19.XXXA - Unspecified fall, initial encounter Status: Acute (4) DM2 (diabetes mellitus, type 2): Qualifiers: Diabetes mellitus 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 manager insulin use: with fdc use Diabetes mellitus complication status: without complication Qualified Code(s): E11.9 - Type 2 diabetes mellitus without complications; Z79.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 of insulin Code(s): E11.9 - Type 2 diabetes mellitus without complications Status: Chronic (5) Asthma: Qualifiers: Asthma severity: unspecified severity Asthma persistence: unspecified Asthma complication type: unspecified Qualified Code(s): J45.909 - Unspecified asthma, uncomplicated Code(s): J45.909 - Unspecified asthma, uncomplicated Status: Chronic (6) HLD (hyperlipidemia): Qualifiers: Hyperlipidemia type: unspecified Qualified Code(s): E78.5 - Hyperlipidemia, unspecified Code(s): E78.5 - Hyperlipidemia, unspecified Status: Chronic (7) Dysphagia: Qualifiers: Dysphagia type: unspecified Qualified Code(s): R13.10 - Dysphagia, unspecified Code(s): R13.10 - Dysphagia, unspecified Status: Acute (8) Parkinsons: Code(s): G20 - Parkinson's disease Status: Acute (9) HTN (hypertension): Qualifiers: Hypertension type: unspecified Qualified Code(s): I10 - Essential (primary) hypertension Code(s): I10 - Essential (primary) hypertension Status: Chronic (10) Hyponatremia: Code(s): E87.1 - Hypo-osmolality and hyponatremia Status: Acute (11) Physical deconditioning: Code(s): R53.81 - Other malaise Status: Acute Additional Plan Community-acquired pneumonia: Given history of dysphagia there were also concerns regarding a component of aspiration pneumonia However at this time we will continue with ceftriaxone azithromycin Anaerobic coverage is not required at this time IV antibiotics may be converted to p.o. 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 antibiotics and diet recommendations as per speech. Time Spent With Patient Time with patient: 25 - 35 minutes Subjective Date/time seen: 11/16/20 19:26 70-year-old male with past medical history significant for hypertension, hyperlipidemia, type 2 diabetes mellitus, depression, Parkinson disease, who was a resident of a residential presented with multiple falls. Patient also complains of choking with food and dysphagia. He is being managed as a case of community-acquired pneumonia with concerns for aspiration pneumonia. He is also noted to have hyponatremia and left knee arthritis with small j
[2020-11-16] MEDS: INSULIN GLARGINE (*BKC) 100 UNITS/ML 20 UNITS SUB-Q (20:17)
[2020-11-16 20:19] LABS: Glucose Point of Care 131 mg/dl (65-105)
[2020-11-16] MEDS: rOPINIRole HCL 1 MG TABLET PO (20:20)
[2020-11-16] MEDS: traZODone HCL 50 MG TABLET 100 MG PO (20:20)
[2020-11-17] VITALS (13 sets, daily range): BP systolic 95–115; BP diastolic 58–76; PULSE 66–90; RESP 18–20; TEMP 36.6–37.1; O2SAT 90–98
[2020-11-17] MEDS: HYDROcodone/acetaminophen (*CRX) 5-325 MG TABLET 1 TAB PO ×2 (03:05→12:18)
[2020-11-17] MEDS: ALBUTEROL SULFATE (*SP) AEROSOL 1 PUFF 4 PUFF INHALATION ×2 (03:53→14:29)
[2020-11-17] MEDS: SODIUM CHLORIDE 0.9% IV 1,000 ML 100 ML IV CONT ×3 (05:39→20:04)
[2020-11-17 07:43] LABS: Basophils Percent Auto 0.3 % (0.2-1.2); Eosinophils Absolute Auto 0.3 K/mm3 (0-0.3); Eosinophils Percent Auto 4.2 % (0-4.4); Hematocrit 39.2 % (42.0-52.0); Hemoglobin 13.4 g/dL (14.0-18.0); Immature Granulocyte Absolute 0.04 K/mm3 (0.00-0.031); Immature Granulocyte Percent A 0.5 % (0-0.5); Lymphocytes Absolute Auto 1.34 K/mm3 (0.9-3.2); Lymphocytes Percent Auto 16.9 % (18.3-44.2); Mean Corpuscular HGB Conc 34.2 g/dl (32-36); Mean Corpuscular Hemoglobin 29.5 pg (26-34); Mean Corpuscular Volume 86.2 fl (80-100); Mean Platelet Volume 9.1 fl (7.4-10.4); Monocytes Absolute Auto 1.2 K/mm3 (0.1-0.6); Monocytes Percent Auto 14.5 % (2.6-8.5); Neutrophils Absolute Auto 5.1 K/mm3 (1.3-6.7); Neutrophils Percent Auto 63.6 % (45.5-73.1); Platelet Count Result 195 k/mm3 (150-375); Red Blood Count 4.55 M/mm3 (4.6-6.20)
[2020-11-17] MEDS: KETOROLAC 15 MG/ML VIAL (*BKC) IV PUSH (07:53)
[2020-11-17 08:11] LABS: Alanine Aminotransferase 12 U/L (4-50); Albumin Level 3.3 g/dL (3.5-5.1); Alkaline Phosphatase 97 U/L (38-126); Anion Gap 9 mmol/L (8-16); Aspartate Amino Transferase 23 U/L (17-59); Bilirubin,Total 0.7 mg/dL (0.2-1.3); Blood Urea Nitrogen 14 mg/dL (9-20); Calcium 8.5 mg/dL (8.4-10.2); Carbon Dioxide 22 mmol/L (22-30); Chloride 99 mmol/L (98-107); Estimated CRCL calculation 124 ml/min; Estimated Glomerular Filt Rate > 60; Glucose 87 mg/dL (65-110); Potassium 3.9 mmol/L (3.4-5.0); Sodium 130 mmol/L (137-145)
[2020-11-17] MEDS: CHOLECALCIFEROL 1,000 UNITS TABLET 2000 UNITS PO (09:46)
[2020-11-17] MEDS: MAGNESIUM OXIDE 400 MG TABLET PO (09:46)
[2020-11-17] MEDS: VENLAFAXINE HCL XR 75 MG CAP.ER.24H 150 MG PO (09:46)
[2020-11-17] MEDS: busPIRone HCL 5 MG TABLET PO ×3 (09:46→17:32)
[2020-11-17] MEDS: ENOXAPARIN 40 MG/0.4 ML SYRINGE SUB-Q (09:46)
[2020-11-17] MEDS: SOTALOL HCL 80 MG TABLET PO ×3 (09:47→17:33)
[2020-11-17] MEDS: OLANZapine 2.5 MG TABLET PO (09:47)
[2020-11-17] MEDS: CARBIDOPA/LEVODOPA 25/100 MG TABLET 1 TABLET PO ×4 (09:47→20:06)
[2020-11-17] MEDS: lisinopriL 2.5 MG TABLET PO (09:47)
[2020-11-17] MEDS: PANTOPRAZOLE 40 MG TABLET PO (09:48)
--- NOTE | 2020-11-17 09:58 | PCRCNOTE ---
pt not in room to receive treatment
[2020-11-17 10:05] LABS: Glucose Point of Care 93 mg/dl (65-105)
--- NOTE | 2020-11-17 11:44 | PCSTNOTE ---
Please refer to the Modified Barium Swallow Evaluation in the EMR.
[2020-11-17 13:41] LABS: Glucose Point of Care 188 mg/dl (65-105)
[2020-11-17 18:12] LABS: Glucose Point of Care 82 mg/dl (65-105)
--- NOTE | 2020-11-17 19:25 | PM.IMPN ---
Progress Note: A&P Assessment and Plan (1) Effusion of left knee: Code(s): M25.462 - Effusion, left knee Status: Acute (2) Pneumonia: Qualifiers: Pneumonia type: due to unspecified organism Laterality: left Lung location: lower lobe of lung Qualified Code(s): J18.9 - Pneumonia, unspecified organism Code(s): J18.9 - Pneumonia, unspecified organism Status: Acute (3) Fall: Qualifiers: Encounter type: initial encounter Qualified Code(s): W19.XXXA - Unspecified fall, initial encounter Code(s): W19.XXXA - Unspecified fall, initial encounter Status: Acute (4) DM2 (diabetes mellitus, type 2): Qualifiers: 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: with snf use Diabetes mellitus complication status: without complication Qualified Code(s): E11.9 - Type 2 diabetes mellitus without complications; 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.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 Code(s): E11.9 - Type 2 diabetes mellitus without complications Status: Chronic (5) Asthma: Qualifiers: Asthma severity: unspecified severity Asthma persistence: unspecified Asthma complication type: unspecified Qualified Code(s): J45.909 - Unspecified asthma, uncomplicated Code(s): J45.909 - Unspecified asthma, uncomplicated Status: Chronic (6) HLD (hyperlipidemia): Qualifiers: Hyperlipidemia type: unspecified Qualified Code(s): E78.5 - Hyperlipidemia, unspecified Code(s): E78.5 - Hyperlipidemia, unspecified Status: Chronic (7) Dysphagia: Qualifiers: Dysphagia type: unspecified Qualified Code(s): R13.10 - Dysphagia, unspecified Code(s): R13.10 - Dysphagia, unspecified Status: Acute (8) Parkinsons: Code(s): G20 - Parkinson's disease Status: Acute (9) HTN (hypertension): Qualifiers: Hypertension type: unspecified Qualified Code(s): I10 - Essential (primary) hypertension Code(s): I10 - Essential (primary) hypertension Status: Chronic (10) Hyponatremia: Code(s): E87.1 - Hypo-osmolality and hyponatremia Status: Acute (11) Physical deconditioning: Code(s): R53.81 - Other malaise Status: Acute Additional Plan Community-acquired pneumonia: Given history of dysphagia there were also concerns regarding a component of aspiration pneumonia However at this time we will continue with ceftriaxone azithromycin Anaerobic coverage is not required at this time IV antibiotics may be converted to p.o. 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 antibiotics and diet recommendations as per speech. Subjective Date/time seen: 11/17/20 19:25 Interval history: No acute medical complaints, patient completes 6 short sentences, however is coherent and able to engage in interview Exam Narrative: HEENT: Mucous membranes are tacky, no oral pharyngeal erythema, no scleral icterus Respiratory: Clear to auscultation bilaterally, no increased work of breathing Cardiovascular: Regular rate, 2+ bilateral radial pedal pulses, no JVD Gastrointestinal: Soft, nontender, nondistended, positive bowel sounds Skin: Skin tear to left elbow with adequat
[2020-11-17] MEDS: rOPINIRole HCL 1 MG TABLET PO (20:06)
[2020-11-17] MEDS: traZODone HCL 50 MG TABLET 100 MG PO (20:06)
[2020-11-17 23:45] LABS: Glucose Point of Care 82 mg/dl (65-105)
[2020-11-18] VITALS (13 sets, daily range): BP systolic 102–129; BP diastolic 48–85; PULSE 59–89; RESP 17–20; TEMP 36.4–36.7; O2SAT 94–100
[2020-11-18] MEDS: KETOROLAC 15 MG/ML VIAL (*BKC) IV PUSH ×2 (03:52→10:52)
[2020-11-18] MEDS: DEXTROSE 5% 1,000 ML 1,000 ML 100 ML IVPB (05:17)
[2020-11-18 05:31] LABS: Glucose Point of Care 73 mg/dl (65-105)
[2020-11-18 07:17] LABS: Basophils Percent Auto 0.6 % (0.2-1.2); Eosinophils Absolute Auto 0.4 K/mm3 (0-0.3); Eosinophils Percent Auto 5.6 % (0-4.4); Hematocrit 38.1 % (42.0-52.0); Hemoglobin 12.7 g/dL (14.0-18.0); Immature Granulocyte Absolute 0.02 K/mm3 (0.00-0.031); Immature Granulocyte Percent A 0.3 % (0-0.5); Lymphocytes Absolute Auto 1.13 K/mm3 (0.9-3.2); Lymphocytes Percent Auto 17.1 % (18.3-44.2); Mean Corpuscular HGB Conc 33.3 g/dl (32-36); Mean Corpuscular Hemoglobin 29.5 pg (26-34); Mean Corpuscular Volume 88.6 fl (80-100); Mean Platelet Volume 8.8 fl (7.4-10.4); Monocytes Percent Auto 14.7 % (2.6-8.5); Neutrophils Absolute Auto 4.1 K/mm3 (1.3-6.7); Neutrophils Percent Auto 61.7 % (45.5-73.1); Platelet Count Result 195 k/mm3 (150-375); Red Cell Distribution Width 12.5 % (11.5-14.5); White Blood Count 6.6 K/mm3 (4.5-10.0)
[2020-11-18 07:32] LABS: Alanine Aminotransferase 7 U/L (4-50); Albumin Level 3.1 g/dL (3.5-5.1); Alkaline Phosphatase 88 U/L (38-126); Anion Gap 5 mmol/L (8-16); Aspartate Amino Transferase 21 U/L (17-59); Bilirubin,Total 0.5 mg/dL (0.2-1.3); Blood Urea Nitrogen 14 mg/dL (9-20); Calcium 8.2 mg/dL (8.4-10.2); Carbon Dioxide 21 mmol/L (22-30); Chloride 106 mmol/L (98-107); Estimated CRCL calculation 124 ml/min; Estimated Glomerular Filt Rate > 60; Glucose 83 mg/dL (65-110); Magnesium 1.9 mg/dL (1.6-2.3); Phosphorus 3.4 mg/dL (2.5-4.5); Potassium 3.8 mmol/L (3.4-5.0); Sodium 132 mmol/L (137-145)
[2020-11-18 08:50] LABS: Glucose Point of Care 84 mg/dl (65-105)
[2020-11-18] MEDS: VENLAFAXINE HCL XR 75 MG CAP.ER.24H 150 MG PO (08:55)
[2020-11-18] MEDS: SOTALOL HCL 80 MG TABLET PO ×3 (08:55→16:44)
[2020-11-18] MEDS: ENOXAPARIN 40 MG/0.4 ML SYRINGE SUB-Q (08:55)
[2020-11-18] MEDS: lisinopriL 2.5 MG TABLET PO (08:56)
[2020-11-18] MEDS: CARBIDOPA/LEVODOPA 25/100 MG TABLET 1 TABLET PO ×4 (08:56→21:33)
[2020-11-18] MEDS: busPIRone HCL 5 MG TABLET PO ×3 (08:56→16:44)
[2020-11-18] MEDS: OLANZapine 2.5 MG TABLET PO (08:56)
--- NOTE | 2020-11-18 11:35 | PCRCNOTE ---
Window of time for administration has passed. See next scheduled administration.
[2020-11-18 12:20] LABS: Glucose Point of Care 100 mg/dl (65-105)
--- NOTE | 2020-11-18 13:19 | PM.IMPN ---
Progress Note: A&P Assessment and Plan (1) Effusion of left knee: Code(s): M25.462 - Effusion, left knee Status: Acute (2) Pneumonia: Qualifiers: Pneumonia type: due to unspecified organism Laterality: left Lung location: lower lobe of lung Qualified Code(s): J18.9 - Pneumonia, unspecified organism Code(s): J18.9 - Pneumonia, unspecified organism Status: Acute (3) Fall: Qualifiers: Encounter type: initial encounter Qualified Code(s): W19.XXXA - Unspecified fall, initial encounter Code(s): W19.XXXA - Unspecified fall, initial encounter Status: Acute (4) DM2 (diabetes mellitus, type 2): Qualifiers: Diabetes mellitus oil heaterman insulin use: with alf use Diabetes mellitus complication status: without complication Qualified Code(s): E11.9 - Type 2 diabetes mellitus without complications; Z79.4 - emt 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 (current) use of insulin Code(s): E11.9 - Type 2 diabetes mellitus without complications Status: Chronic (5) Asthma: Qualifiers: Asthma severity: unspecified severity Asthma persistence: unspecified Asthma complication type: unspecified Qualified Code(s): J45.909 - Unspecified asthma, uncomplicated Code(s): J45.909 - Unspecified asthma, uncomplicated Status: Chronic (6) HLD (hyperlipidemia): Qualifiers: Hyperlipidemia type: unspecified Qualified Code(s): E78.5 - Hyperlipidemia, unspecified Code(s): E78.5 - Hyperlipidemia, unspecified Status: Chronic (7) Dysphagia: Qualifiers: Dysphagia type: unspecified Qualified Code(s): R13.10 - Dysphagia, unspecified Code(s): R13.10 - Dysphagia, unspecified Status: Acute (8) Parkinsons: Code(s): G20 - Parkinson's disease Status: Acute (9) HTN (hypertension): Qualifiers: Hypertension type: unspecified Qualified Code(s): I10 - Essential (primary) hypertension Code(s): I10 - Essential (primary) hypertension Status: Chronic (10) Hyponatremia: Code(s): E87.1 - Hypo-osmolality and hyponatremia Status: Acute (11) Physical deconditioning: Code(s): R53.81 - Other malaise Status: Acute Additional Plan Community-acquired pneumonia, left lower lobe: Given history of dysphagia there were also concerns regarding a component of aspiration pneumonia However at this time we will continue with ceftriaxone azithromycin Anaerobic coverage is not required at this time IV antibiotics may be converted to p.o. 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 antibiotics and diet recommendations as per speech. Subjective Date/time seen: 11/18/20 13:19 No acute medical complaints, resting in bed, limited interview. Interval history: No acute medical complaints, patient completes short sentences, however is coherent and able to engage in interview Review of Systems Review of Systems: Limited, no acute medical distress Exam Narrative: HEENT: Mucous membranes are tacky, no oral pharyngeal erythema, no scleral icterus Respiratory: Clear to auscultation bilaterally, no increased work of breathing Cardiovascular: Regular rate, 2
[2020-11-18] MEDS: MORPHINE SULFATE (*CRX) 2 MG/ML INJ IV PUSH ×2 (14:22→18:56)
[2020-11-18] MEDS: ALBUTEROL SULFATE (*SP) AEROSOL 1 PUFF 4 PUFF INHALATION ×2 (15:58→22:49)
[2020-11-18] MEDS: SODIUM CHLORIDE 0.9% IV 1,000 ML 100 ML IV CONT (16:42)
[2020-11-18 16:48] LABS: Glucose Point of Care 118 mg/dl (65-105)
[2020-11-18 20:05] LABS: Glucose Point of Care 72 mg/dl (65-105)
--- NOTE | 2020-11-18 20:09 | ADMGEN ---
This patient, Alonzo Armenta, was admitted to [facility] Surg Room 327-01. Patient/family oriented to hospital policies and general routines including ID bracelet, bed and alarms, visiting hours, pain management, procedures, bathroom and other care routines, personal items, smoking policy, room service/diet, and visiting hours. Information on how to activate the Rapid Response Team has been discussed. Patient/Family are encouraged to report perceived risks to care and to ask questions if they do not understand what they are told or what they should do.
[2020-11-18] MEDS: traZODone HCL 50 MG TABLET 100 MG PO (21:30)
[2020-11-18] MEDS: rOPINIRole HCL 1 MG TABLET PO (21:34)
[2020-11-19] VITALS (7 sets, daily range): BP systolic 120–155; BP diastolic 60–87; PULSE 58–82; RESP 18; TEMP 36.4–36.6; O2SAT 90–100
[2020-11-19] MEDS: MORPHINE SULFATE (*CRX) 2 MG/ML INJ IV PUSH (03:14)
[2020-11-19] MEDS: SODIUM CHLORIDE 0.9% IV 1,000 ML 100 ML IV CONT ×3 (03:17→23:49)
[2020-11-19 07:29] LABS: Basophils Absolute Auto 0.1 K/mm3 (0.0-0.1); Basophils Percent Auto 0.8 % (0.2-1.2); Eosinophils Absolute Auto 0.4 K/mm3 (0-0.3); Hematocrit 37.9 % (42.0-52.0); Hemoglobin 12.6 g/dL (14.0-18.0); Immature Granulocyte Absolute 0.03 K/mm3 (0.00-0.031); Immature Granulocyte Percent A 0.5 % (0-0.5); Lymphocytes Absolute Auto 0.93 K/mm3 (0.9-3.2); Lymphocytes Percent Auto 15.6 % (18.3-44.2); Mean Corpuscular HGB Conc 33.2 g/dl (32-36); Mean Corpuscular Hemoglobin 29.6 pg (26-34); Mean Corpuscular Volume 89.2 fl (80-100); Mean Platelet Volume 8.7 fl (7.4-10.4); Monocytes Percent Auto 16.3 % (2.6-8.5); Neutrophils Absolute Auto 3.6 K/mm3 (1.3-6.7); Neutrophils Percent Auto 60.8 % (45.5-73.1); Platelet Count Result 208 k/mm3 (150-375); Red Blood Count 4.25 M/mm3 (4.6-6.20); Red Cell Distribution Width 12.2 % (11.5-14.5)
[2020-11-19 08:33] LABS: Alanine Aminotransferase 9 U/L (4-50); Alkaline Phosphatase 90 U/L (38-126); Anion Gap 3 mmol/L (8-16); Aspartate Amino Transferase 20 U/L (17-59); Bilirubin,Total 0.5 mg/dL (0.2-1.3); Blood Urea Nitrogen 12 mg/dL (9-20); Calcium 8.2 mg/dL (8.4-10.2); Carbon Dioxide 21 mmol/L (22-30); Chloride 107 mmol/L (98-107); Estimated CRCL calculation 124 ml/min; Estimated Glomerular Filt Rate > 60; Glucose 73 mg/dL (65-110); Magnesium 1.8 mg/dL (1.6-2.3); Phosphorus 3.7 mg/dL (2.5-4.5); Sodium 131 mmol/L (137-145)
[2020-11-19 09:09] LABS: Glucose Point of Care 84 mg/dl (65-105)
[2020-11-19] MEDS: ALBUTEROL SULFATE (*SP) AEROSOL 1 PUFF 4 PUFF INHALATION ×3 (10:02→21:36)
--- NOTE | 2020-11-19 10:36 | PM.IMPN ---
Progress Note: A&P Assessment and Plan (1) Effusion of left knee: Code(s): M25.462 - Effusion, left knee Status: Acute (2) Pneumonia: Qualifiers: Pneumonia type: due to unspecified organism Laterality: left Lung location: lower lobe of lung Qualified Code(s): J18.9 - Pneumonia, unspecified organism Code(s): J18.9 - Pneumonia, unspecified organism Status: Acute (3) Fall: Qualifiers: Encounter type: initial encounter Qualified Code(s): W19.XXXA - Unspecified fall, initial encounter Code(s): W19.XXXA - Unspecified fall, initial encounter Status: Acute (4) DM2 (diabetes mellitus, type 2): Qualifiers: Diabetes mellitus watermelon inspector insulin use: with halfway use Diabetes mellitus complication status: without complication Qualified Code(s): E11.9 - Type 2 diabetes mellitus without complications; Z79.4 - long term (current) use of insulin Code(s): E11.9 - Type 2 diabetes mellitus without complications Status: Chronic (5) Asthma: Qualifiers: Asthma severity: unspecified severity Asthma persistence: unspecified Asthma complication type: unspecified Qualified Code(s): J45.909 - Unspecified asthma, uncomplicated Code(s): J45.909 - Unspecified asthma, uncomplicated Status: Chronic (6) HLD (hyperlipidemia): Qualifiers: Hyperlipidemia type: unspecified Qualified Code(s): E78.5 - Hyperlipidemia, unspecified Code(s): E78.5 - Hyperlipidemia, unspecified Status: Chronic (7) Dysphagia: Qualifiers: Dysphagia type: unspecified Qualified Code(s): R13.10 - Dysphagia, unspecified Code(s): R13.10 - Dysphagia, unspecified Status: Acute (8) Parkinsons: Code(s): G20 - Parkinson's disease Status: Acute (9) HTN (hypertension): Qualifiers: Hypertension type: unspecified Qualified Code(s): I10 - Essential (primary) hypertension Code(s): I10 - Essential (primary) hypertension Status: Chronic (10) Hyponatremia: Code(s): E87.1 - Hypo-osmolality and hyponatremia Status: Acute (11) Physical deconditioning: Code(s): R53.81 - Other malaise Status: Acute Additional Plan Community-acquired pneumonia, left lower lobe: Given history of dysphagia there were also concerns regarding a component of aspiration pneumonia However at this time we will continue with ceftriaxone azithromycin Anaerobic coverage is not required at this time Will convert IV antibiotics to p.o. 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 Speech therapy has also been consulted during this admission and evaluated the patient this morning Given his symptoms I have modified barium swallow is recommended which will be performed tomorrow as per discussion Patient passed swallow eval, possible discharge today if insurance authorized this Subjective Date/time seen: 11/19/20 10:36 no acute medical complaints Review of Systems Review of Systems: Not able to obtain extensive review of systems, as patient prefers not to engage in lengthy interview, however no acute medical complaints Exam Narrative: HEENT: Mucous membranes are tacky, no oral pharyngeal erythema, no scleral icterus Respiratory: Clear to auscultation bilaterally, no increased work of breathing Cardiovascular: Regular rate, 2+ bilateral radial pedal pulses, no JVD Gastrointestinal: Soft, nontender, nondistended, positive bowel sounds Skin: Skin tear to left
[2020-11-19] MEDS: VENLAFAXINE HCL XR 75 MG CAP.ER.24H 150 MG PO (11:15)
[2020-11-19] MEDS: SOTALOL HCL 80 MG TABLET PO (11:15)
[2020-11-19] MEDS: OLANZapine 2.5 MG TABLET PO (11:17)
[2020-11-19] MEDS: CARBIDOPA/LEVODOPA 25/100 MG TABLET 1 TABLET PO (11:17)
[2020-11-19] MEDS: busPIRone HCL 5 MG TABLET PO (11:17)
[2020-11-19] MEDS: ENOXAPARIN 40 MG/0.4 ML SYRINGE SUB-Q (11:17)
[2020-11-19] MEDS: lisinopriL 2.5 MG TABLET PO (11:17)
[2020-11-19 14:58] LABS: Glucose Point of Care 69 mg/dl (65-105)
[2020-11-19 20:56] LABS: Glucose Point of Care 78 mg/dl (65-105)
--- NOTE | 2020-11-19 21:37 | PCRCNOTE ---
Window of time for administration has passed. See next scheduled administration.
[2020-11-19] MEDS: INSULIN GLARGINE (*BKC) 100 UNITS/ML 20 UNITS SUB-Q (23:21)
[2020-11-19] MEDS: rOPINIRole HCL 1 MG TABLET PO (23:43)
[2020-11-19] MEDS: traZODone HCL 50 MG TABLET 100 MG PO (23:43)
[2020-11-20] VITALS (7 sets, daily range): BP systolic 128–141; BP diastolic 75–92; PULSE 61–91; RESP 16–20; TEMP 36.4–36.7; O2SAT 94–98
[2020-11-20] MEDS: ALBUTEROL SULFATE (*SP) AEROSOL 1 PUFF 4 PUFF INHALATION ×4 (02:12→21:06)
--- NOTE | 2020-11-20 02:12 | PCRCNOTE ---
Window of time for administration has passed. See next scheduled administration.
[2020-11-20 07:11] LABS: Basophils Percent Auto 0.6 % (0.2-1.2); Eosinophils Absolute Auto 0.3 K/mm3 (0-0.3); Eosinophils Percent Auto 4.7 % (0-4.4); Hematocrit 40.9 % (42.0-52.0); Hemoglobin 13.6 g/dL (14.0-18.0); Immature Granulocyte Absolute 0.03 K/mm3 (0.00-0.031); Immature Granulocyte Percent A 0.5 % (0-0.5); Lymphocytes Absolute Auto 1.01 K/mm3 (0.9-3.2); Lymphocytes Percent Auto 15.7 % (18.3-44.2); Mean Corpuscular HGB Conc 33.3 g/dl (32-36); Mean Corpuscular Hemoglobin 29.7 pg (26-34); Mean Corpuscular Volume 89.3 fl (80-100); Mean Platelet Volume 8.6 fl (7.4-10.4); Monocytes Absolute Auto 0.9 K/mm3 (0.1-0.6); Monocytes Percent Auto 14.5 % (2.6-8.5); Neutrophils Absolute Auto 4.1 K/mm3 (1.3-6.7); Platelet Count Result 241 k/mm3 (150-375); Red Blood Count 4.58 M/mm3 (4.6-6.20); White Blood Count 6.4 K/mm3 (4.5-10.0)
[2020-11-20 07:16] LABS: Glucose Point of Care 81 mg/dl (65-105)
[2020-11-20 08:02] LABS: Alanine Aminotransferase 18 U/L (4-50); Albumin Level 3.4 g/dL (3.5-5.1); Alkaline Phosphatase 111 U/L (38-126); Anion Gap 10 mmol/L (8-16); Aspartate Amino Transferase 23 U/L (17-59); Bilirubin,Total 0.8 mg/dL (0.2-1.3); Blood Urea Nitrogen 12 mg/dL (9-20); Calcium 8.3 mg/dL (8.4-10.2); Carbon Dioxide 20 mmol/L (22-30); Chloride 100 mmol/L (98-107); Estimated CRCL calculation 124 ml/min; Estimated Glomerular Filt Rate > 60; Glucose 77 mg/dL (65-110); Magnesium 1.7 mg/dL (1.6-2.3); Phosphorus 3.5 mg/dL (2.5-4.5); Sodium 130 mmol/L (137-145)
[2020-11-20 12:46] LABS: Glucose Point of Care 83 mg/dl (65-105)
[2020-11-20] MEDS: SODIUM CHLORIDE 0.9% IV 1,000 ML 100 ML IV CONT (13:46)
--- NOTE | 2020-11-20 14:49 | PM.IMPN ---
Progress Note: A&P Assessment and Plan (1) Effusion of left knee: Code(s): M25.462 - Effusion, left knee Status: Acute (2) Pneumonia: Qualifiers: Laterality: left Lung location: lower lobe of lung Pneumonia type: due to unspecified organism Qualified Code(s): J18.9 - Pneumonia, unspecified organism Code(s): J18.9 - Pneumonia, unspecified organism Status: Acute (3) Fall: Qualifiers: Encounter type: initial encounter Qualified Code(s): W19.XXXA - Unspecified fall, initial encounter Code(s): W19.XXXA - Unspecified fall, initial encounter Status: Acute (4) DM2 (diabetes mellitus, type 2): Qualifiers: Diabetes mellitus complication status: without complication Diabetes mellitus custodial insulin use: with custodial use Qualified Code(s): E11.9 - Type 2 diabetes mellitus without complications; Z79.4 - keno terminal operator (current) use of insulin Code(s): E11.9 - Type 2 diabetes mellitus without complications Status: Chronic (5) Asthma: Qualifiers: Asthma complication type: unspecified Asthma persistence: unspecified Asthma severity: unspecified severity Qualified Code(s): J45.909 - Unspecified asthma, uncomplicated Code(s): J45.909 - Unspecified asthma, uncomplicated Status: Chronic (6) HLD (hyperlipidemia): Qualifiers: Hyperlipidemia type: unspecified Qualified Code(s): E78.5 - Hyperlipidemia, unspecified Code(s): E78.5 - Hyperlipidemia, unspecified Status: Chronic (7) Dysphagia: Qualifiers: Dysphagia type: unspecified Qualified Code(s): R13.10 - Dysphagia, unspecified Code(s): R13.10 - Dysphagia, unspecified Status: Acute (8) Parkinsons: Code(s): G20 - Parkinson's disease Status: Acute (9) HTN (hypertension): Qualifiers: Hypertension type: unspecified Qualified Code(s): I10 - Essential (primary) hypertension Code(s): I10 - Essential (primary) hypertension Status: Chronic (10) Hyponatremia: Code(s): E87.1 - Hypo-osmolality and hyponatremia Status: Acute (11) Physical deconditioning: Code(s): R53.81 - Other malaise Status: Acute Additional Plan Community-acquired pneumonia, left lower lobe: Given history of dysphagia there were also concerns regarding a component of aspiration pneumonia However at this time we will continue with ceftriaxone azithromycin Anaerobic coverage is not required at this time Will convert IV antibiotics to p.o. 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 Speech therapy has also been consulted during this admission and evaluated the patient this morning Given his symptoms I have modified barium swallow is recommended which will be performed tomorrow as per discussion 11/20/20 14:49 patient is 70-year-old male with a community-acquired pneumonia and failed swallow study, patient did not want NG tube placed and he wants to have PEG, there was long discussion between s0n, daughter and patient and family they agreed with the PEG and plan was to consult GI further recommendation, normally patient is placed on NG tube before going to insert PEG, we have consulted GI to see if they place PEG, as patient is refusing NG tube, will wait to hear from the GI, meanwhile will place on prcalamine to provide some nutrients, patient remains clinically stable will continue IV antibiotic and repeat x-ray tomorrow morning further recommendation to follow.
[2020-11-20] MEDS: MORPHINE SULFATE (*CRX) 2 MG/ML INJ IV PUSH ×2 (15:12→18:45)
[2020-11-20] MEDS: ENOXAPARIN 40 MG/0.4 ML SYRINGE SUB-Q (16:10)
[2020-11-20] MEDS: SOTALOL HCL 80 MG TABLET PO (16:11)
[2020-11-20] MEDS: VENLAFAXINE HCL XR 75 MG CAP.ER.24H 150 MG PO (16:11)
[2020-11-20] MEDS: OLANZapine 2.5 MG TABLET PO (16:11)
[2020-11-20] MEDS: lisinopriL 2.5 MG TABLET PO (16:11)
[2020-11-20] MEDS: busPIRone HCL 5 MG TABLET PO (16:11)
[2020-11-20] MEDS: CARBIDOPA/LEVODOPA 25/100 MG TABLET 1 TABLET PO ×2 (16:11→20:18)
[2020-11-20] MEDS: FAT EMULSIONS IV 20% 250 ML 20.83 ML IVPB (16:11)
[2020-11-20] MEDS: levoFLOXacin 500 MG TABLET PO (16:11)
[2020-11-20] MEDS: AMINO ACIDS 4.25%/D5W/LYTES/CA 2,000 ML 75 ML IV CONT (16:12)
[2020-11-20 16:42] LABS: Glucose Point of Care 139 mg/dl (65-105)
--- NOTE | 2020-11-20 16:44 | WPDGICN ---
Assessment and Plan Assessment and plan (1) Parkinsons: Code(s): G20 - Parkinson's disease Status: Acute Assessment and Plan: He has difficulty speaking, phonating and facial muscles reveal obvious Parkinson's disease. Is very likely explains his dysphagia due to neuromuscular cause. I spoke to his daughter, Kaity, she and the patient had a long conversation yesterday with the staff and or in the impression he would have an EGD today. They are hoping to resolve any possibility of structural or other etiologies for his dysphagia. I will schedule for EGD to be done tomorrow. (2) Pneumonia: Qualifiers: Pneumonia type: due to unspecified organism Laterality: left Lung location: lower lobe of lung Qualified Code(s): J18.9 - Pneumonia, unspecified organism Code(s): J18.9 - Pneumonia, unspecified organism Status: Acute Assessment and Plan: It is fairly clear that he has aspiration pneumonia. The family and he are all aware that with him attempting the there is very high probability of choking or aspiration. His daughter is concerned about disposition. He had been at an independent living facility but she believes that he may need to go into hospice if he cannot take in liquids sufficient to avoid dehydration. GI Consult Note Consult date/time: 11/20/20 16:44 HPI: Alonzo Armenta is a 70 year old male with Parkinson's disease, diabetes, hypertension who has been living in assisted living. He has fallen a couple times recently and was brought to the hospital. He was found to have pneumonia thought to be due to aspiration. A modified barium swallow did in fact reveal penetration and evidence that he he would be at high risk for aspiration. Feeding with a NG tube or PEG tube was recommended. The patient however does not wish to have any type feeding tube. He has spoken to his family and they are all in agreement that even if there is of significant risk of aspiration that he does not want to be fed artificially i.e. through a feeding tube. The patient currently is working on a tray of clear liquids and has taken a few oz of liquid juice and now is eating a popsicle. He denies abdominal pain. He does not recall ever having episodes of food impaction in his chest. His appetite is usually good. Review of Systems Review of Systems: All systems reviewed & are unremarkable except as noted in HPI and below PMFSH Past Medical History Medical History Abnormal weight loss Asthma CAD (coronary artery disease) Compression fracture of L1 lumbar vertebra Depression with suicidal ideation (~09/2020) DM2 (diabetes mellitus, type 2) Dysphagia GERD (gastroesophageal reflux disease) History of adenomatous polyp of colon HLD (hyperlipidemia) HTN (hypertension) Myocardial infarction Obstructive sleep apnea no longer wears a CPAP Parkinsons Surgical History Surgical History H/O colonoscopy with polypectomy History of cataract extraction History of coronary artery stent placement x2 Hx of cholecystectomy S/P appendectomy Family History Family History Father Emphysema lung Mother Cerebrovascular accident Sibling Acute myocardial infarction Sibling Suicide Social History Social History Social History: The patient lives at [facility]. He has a son and a daughter. The patient is retired from [employer] . He is . He is a former smoker. He does not use any marijuana or alcohol. Primary care physician: Dr. La Hermosillo Code status: Full code Surrogate decision maker: Mayo (son) Smoking packs per day: 1 Smoking cigarettes per day: 20.0 Years smoked: 10 Smoking pack-years: 10.00 Smoking status: Former smoker Abbyo
[2020-11-20] MEDS: rOPINIRole HCL 1 MG TABLET PO (20:18)
[2020-11-20] MEDS: traZODone HCL 50 MG TABLET 100 MG PO (20:18)
[2020-11-20] MEDS: INSULIN GLARGINE (*BKC) 100 UNITS/ML 20 UNITS SUB-Q (20:18)
[2020-11-20 20:42] LABS: Glucose Point of Care 222 mg/dl (65-105)
[2020-11-21] VITALS (12 sets, daily range): BP systolic 108–172; BP diastolic 80–97; PULSE 62–80; RESP 18–22; TEMP 36.2–36.6; O2SAT 47–100; BMI 25.8
--- NOTE | 2020-11-21 05:06 | PCRCNOTE ---
Window of time for administration has passed. See next scheduled administration.
[2020-11-21] MEDS: MORPHINE SULFATE (*CRX) 2 MG/ML INJ IV PUSH ×3 (05:52→20:56)
[2020-11-21] MEDS: ALBUTEROL SULFATE (*SP) AEROSOL 1 PUFF 4 PUFF INHALATION ×3 (07:49→21:50)
[2020-11-21 08:02] LABS: Glucose Point of Care 146 mg/dl (65-105)
[2020-11-21 09:52] LABS: Magnesium 1.8 mg/dL (1.6-2.3)
--- NOTE | 2020-11-21 11:22 | PCDIET ---
Plans for PEG tube today. Recommend discontinuing PPN once tube feeding have started. Tube feeding recommendations: Glucerna 1.2 at 25 ml/hr q 4 hours increased by 10 ml to goal rate of 80 ml/hr. Providin kcals/106 gms protein/1417 ml water. Free water flush 30 ml q 4 hours. Will continue to monitor every Thursday and Thursday.
--- NOTE | 2020-11-21 11:33 | WPDANESEPPF ---
Anes - Initial Pre Proc Eval Procedure: Operation Date: 11/21/20 12:30 Proposed Procedures p Esophagogastroduodenoscopy - Chapin Cruz MD Date/Time: 11/21/20 11:33 Surgeon: Js Ramírez MD Pre Op Diagnosis: pneumonia,generalized weakness,knee contusion Patient Data Age: 70 Gender: M Height: 1.8 m Weight: 84 kg Last Vital Signs Temp 36.6 C 11/21/20 06:00 Pulse 75 11/21/20 07:54 Resp 18 11/21/20 07:54 BP 157/94 H 11/21/20 06:00 Pulse Ox 98 11/21/20 06:00 Allergies Allergy/AdvReac Type Severity Reaction Status Date / Time No Known Allergies Allergy Verified 11/21/20 11:28 Home Medications Medication Instructions Recorded Confirmed Type albuterol sulfate 90 mcg/actuation 2 puff INHALATION Q4H PRN 05/25/20 11/15/20 History aerosol inhaler buspirone 5 mg tablet 5 mg PO TID 05/25/20 11/15/20 History cholecalciferol (vitamin D3) 50 50 mcg PO DAILY 05/25/20 11/15/20 History mcg (2,000 unit) capsule lisinopril 2.5 mg tablet 2.5 mg PO DAILY 05/25/20 11/15/20 History metformin 1,000 mg tablet 1,000 mg PO BID 05/25/20 11/15/20 History omeprazole 20 mg capsule,delayed 20 mg PO DAILY 05/25/20 11/15/20 History release trazodone 100 mg tablet 100 mg PO HS 05/25/20 11/15/20 History carbidopa-levodopa 1 tablet PO QID 09/07/20 11/15/20 History furosemide 40 mg PO DAILY 09/07/20 11/15/20 History magnesium oxide 400 mg PO DAILY 09/07/20 11/15/20 History ropinirole 1 mg PO HS 09/07/20 11/15/20 History venlafaxine 150 mg PO DAILY 09/07/20 11/15/20 History Tresiba FlexTouch U-200 20 unit SUBCUT HS 09/09/20 11/15/20 History olanzapine [Zyprexa] 2.5 mg PO DAILY 30 Days #30 tablet 09/10/20 11/15/20 Rx sotalol 80 mg PO TID #0 tablet 09/10/20 11/15/20 Rx naproxen 250 mg PO BID #10 tablet 11/14/20 11/15/20 Rx Laboratory Tests 11/20/20 11/20/20 11/20/20 12:36 16:38 20:17 POC Capillary Glucose 83 mg/dl mg/dl 139 mg/dl H mg/dl 222 mg/dl H mg/dl (65-105) (65-105) (65-105) Magnesium 11/21/20 11/21/20 07:53 09:14 POC Capillary Glucose 146 mg/dl H mg/dl (65-105) Magnesium 1.8 mg/dL mg/dL (1.6-2.3) Patient hx anesthesia problems: none Family hx anesthesia problems: none PMFSH Past Medical History Medical History Abnormal weight loss Asthma CAD (coronary artery disease) Compression fracture of L1 lumbar vertebra Depression with suicidal ideation (~09/2020) DM2 (diabetes mellitus, type 2) Dysphagia GERD (gastroesophageal reflux disease) History of adenomatous polyp of colon HLD (hyperlipidemia) HTN (hypertension) Myocardial infarction Obstructive sleep apnea no longer wears a CPAP Parkinsons Surgical History Surgical History H/O colonoscopy with polypectomy History of cataract extraction History of coronary artery stent placement x2 Hx of cholecystectomy S/P appendectomy Family History Family History Father Emphysema lung Mother Cerebrovascular accident Sibling Acute myocardial infarction Sibling Suicide Social History Social History Social History: The patient lives at [facility]. He has a son and a daughter. The patient is retired from [employer] . He is . He is a former smoker. He does not use any marijuana or alcohol. Primary care physician: Dr. La Hermosillo Code status: Full code Surrogate decision maker: Mayo (son) Smoking packs per day: 1 Smoking cigarettes per day: 20.0 Years smoked: 10 Smoking pack-years: 10.00 Smoking status: Former smoker Additional smoking assessment comments: used to smoke occasional cigar Alcohol intake: former Drinks per week: 3 Substance use: never Substance use type: does not use Gender identity (if ve
[2020-11-21] MEDS: LACTATED RINGERS 1,000 ML 150 ML IV CONT (11:40)
--- NOTE | 2020-11-21 11:40 | PC.NURSE ---
To GI Lab per chase [facility]AN[facility]. Report given to Isha.
--- NOTE | 2020-11-21 12:26 | PCSTNOTE ---
The patient treatment was not able to be completed on 11/21/20 due to leaving for EGD procedure when therapist arrived for therapy session. Will plan to continue treatment per plan of care.
--- NOTE | 2020-11-21 13:30 | PC.NURSE ---
Returned from GI Lab. Report received from Alessia .
[2020-11-21 14:22] LABS: Glucose Point of Care 124 mg/dl (65-105)
--- NOTE | 2020-11-21 15:02 | PM.IMPN ---
Progress Note: A&P Assessment and Plan (1) Effusion of left knee: Code(s): M25.462 - Effusion, left knee Status: Acute (2) Pneumonia: Qualifiers: Pneumonia type: due to unspecified organism Laterality: left Lung location: lower lobe of lung Qualified Code(s): J18.9 - Pneumonia, unspecified organism Code(s): J18.9 - Pneumonia, unspecified organism Status: Acute (3) Fall: Qualifiers: Encounter type: initial encounter Qualified Code(s): W19.XXXA - Unspecified fall, initial encounter Code(s): W19.XXXA - Unspecified fall, initial encounter Status: Acute (4) DM2 (diabetes mellitus, type 2): Qualifiers: Diabetes mellitus terminal make up operator insulin use: with jail use Diabetes mellitus complication status: without complication Qualified Code(s): E11.9 - Type 2 diabetes mellitus without complications; Z79.4 - terminal clerk (current) use of insulin Code(s): E11.9 - Type 2 diabetes mellitus without complications Status: Chronic (5) Asthma: Qualifiers: Asthma severity: unspecified severity Asthma persistence: unspecified Asthma complication type: unspecified Qualified Code(s): J45.909 - Unspecified asthma, uncomplicated Code(s): J45.909 - Unspecified asthma, uncomplicated Status: Chronic (6) HLD (hyperlipidemia): Qualifiers: Hyperlipidemia type: unspecified Qualified Code(s): E78.5 - Hyperlipidemia, unspecified Code(s): E78.5 - Hyperlipidemia, unspecified Status: Chronic (7) Dysphagia: Qualifiers: Dysphagia type: unspecified Qualified Code(s): R13.10 - Dysphagia, unspecified Code(s): R13.10 - Dysphagia, unspecified Status: Acute (8) Parkinsons: Code(s): G20 - Parkinson's disease Status: Acute (9) HTN (hypertension): Qualifiers: Hypertension type: unspecified Qualified Code(s): I10 - Essential (primary) hypertension Code(s): I10 - Essential (primary) hypertension Status: Chronic (10) Hyponatremia: Code(s): E87.1 - Hypo-osmolality and hyponatremia Status: Acute (11) Physical deconditioning: Code(s): R53.81 - Other malaise Status: Acute Additional Plan Community-acquired pneumonia, left lower lobe: Given history of dysphagia there were also concerns regarding a component of aspiration pneumonia However at this time we will continue with ceftriaxone azithromycin Anaerobic coverage is not required at this time Will convert IV antibiotics to p.o. 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 Speech therapy has also been consulted during this admission and evaluated the patient this morning Given his symptoms I have modified barium swallow is recommended which will be performed tomorrow as per discussion 11/21/20 15:02 11/20/20 14:49 patient is 70-year-old male with a community-acquired pneumonia and failed swallow study, patient did not want NG tube placed and he wants to have PEG, there was long discussion between s0n, daughter and patient and family they agreed with the PEG and plan was to consult GI further recommendation, normally patient is placed on NG tube before going to insert PEG, we have consulted GI to see if they place PEG, as patient is refusing NG tube, will wait to hear from the GI, meanwhile will place on prcalamine to provide some nutrients, patient remains clinically stable will continue IV antibiotic and repeat x-ray tomorrow morning further recommenda
[2020-11-21] MEDS: levoFLOXacin 500 MG TABLET PO (15:21)
[2020-11-21] MEDS: lisinopriL 2.5 MG TABLET PO (15:21)
[2020-11-21] MEDS: VENLAFAXINE HCL XR 75 MG CAP.ER.24H 150 MG PO (15:22)
[2020-11-21] MEDS: CARBIDOPA/LEVODOPA 25/100 MG TABLET 1 TABLET PO ×3 (15:22→20:57)
[2020-11-21] MEDS: busPIRone HCL 5 MG TABLET PO ×2 (15:22→18:48)
[2020-11-21] MEDS: OLANZapine 2.5 MG TABLET PO (15:24)
[2020-11-21] MEDS: SOTALOL HCL 80 MG TABLET PO ×2 (15:25→18:47)
[2020-11-21] MEDS: ENOXAPARIN 40 MG/0.4 ML SYRINGE SUB-Q (15:41)
[2020-11-21] MEDS: AMINO ACIDS 4.25%/D5W/LYTES/CA 2,000 ML 75 ML IV CONT (15:46)
[2020-11-21] MEDS: FAT EMULSIONS IV 20% 250 ML 20.8 ML IVPB (15:51)
[2020-11-21 18:45] LABS: Glucose Point of Care 136 mg/dl (65-105)
[2020-11-21] MEDS: rOPINIRole HCL 1 MG TABLET PO (20:57)
[2020-11-21] MEDS: traZODone HCL 50 MG TABLET 100 MG PO (20:57)
[2020-11-21] MEDS: INSULIN GLARGINE (*BKC) 100 UNITS/ML 20 UNITS SUB-Q (21:05)
[2020-11-21 22:56] LABS: Glucose Point of Care 135 mg/dl (65-105)
[2020-11-21 23:31] LABS: Osmolality, Urine 335 mOsm/kg (50-1200)
--- NOTE | 2020-11-22 | ECHO_ITS ---
Patient Info Name: Alonzo Armenta Age: 70 years : 1950 Gender: Male Ht: 71 in Wt: 185 lbs BSA: 2.06 m2 HR: 74 bpm BP: 122 / 62 mmHg Heart Rhythm: Sinus Rhythm Technical Quality: Poor Exam Date: 11/22/2020 1:18 PM Exam Location: [facility] Pulmonary Exam Room: [facility] Patient Status: Inpatient Admit Date: 11/19/2020 Staff Ordering Physician: Morales Santizo MD Presser First: Judy Oakes RDCS Attending Provider: Ashok Ramírez MD Exam Type: CA echo dop color flow w con Study Info Indications - PRE OP EVALUATION Complete two-dimensional, color flow and Doppler transthoracic echocardiogram is performed with contrast to opacify the left ventricle and to improve the deliniation of the left ventricle endocardial borders. Contrast/Agitated Saline Contrast/Ag. Saline: Definity Amount: 1.00 ml New IV Access: Left Reason for Poor Study: patient body habitus Summary 1. Normal left ventricular size with mild concentric hypertrophy good systolic function of all segments. The visually estimated ejection fraction 60-65%. Grade 1 diastolic dysfunction is present. No focal wall motion abnormalities. 2. No significant valve disease discernible. 3. Moderate left atrial enlargement. 4. Technically difficult study, definity echo contrast used. 5. Normal sinus rhythm. Left Ventricle Left ventricular chamber dimension is normal. Left ventricular systolic function is normal, estimated at 60-65%. There is mildly increased left ventricular wall thickness. Left ventricular septal wall motion is normal. The left ventricular diastolic function is grade I diastolic dysfunction. Right Ventricle Right ventricular chamber dimension is normal. Right ventricular systolic function is normal. Left Atria Left atrial chamber dimension is moderately enlarged. Right Atria Right atrial chamber dimension is normal. Aortic Valve The aortic valve is trileaflet. There is no aortic valve sclerosis. There is no aortic valve stenosis. There is trace aortic valve regurgitation. Pulmonic Valve The pulmonic valve is normal. There is no pulmonic valve stenosis. There is no pulmonic regurgitation. Mitral Valve The mitral valve has normal leaflets. There is no mitral valve stenosis. There is no mitral valve regurgitation. Tricuspid Valve The tricuspid valve leaflets are normal. There is no significant tricuspid valve stenosis. There is no tricuspid valve regurgitation. No pulmonary hypertension, estimated pulmonary arterial systolic pressure is Empty. Pericardium/Pleural The pericardium appears normal. There is no pericardial effusion. Inferior Vena Cava Normal inferior vena cava with >50% collapse upon inspiration consistent with Empty right atrial pressure, Empty. Aorta The aortic root size at the sinus of Valsalva is normal. The prox ascending aorta size is normal. Left Ventricular Outflow Tract Name Value Normal LVOT 2D LVOT Diameter 2.07 cm LVOT Doppler LVOT Peak Gradient 5 mmHg LVOT Mean Gradient
[2020-11-22] MEDS: MORPHINE SULFATE (*CRX) 2 MG/ML INJ IV PUSH ×5 (02:29→21:22)
--- NOTE | 2020-11-22 04:12 | PCRCNOTE ---
Inhaler scheduled for 02:00 not administered due to pt emergencies in other areas of the hospital.
[2020-11-22 05:37] VITALS: BP 122/62; PULSE 74; RESP 16; TEMP 36.6; O2SAT 97
[2020-11-22 07:05] LABS: Hematocrit 43.5 % (42.0-52.0); Hemoglobin 14.4 g/dL (14.0-18.0); Mean Corpuscular HGB Conc 33.1 g/dl (32-36); Mean Corpuscular Hemoglobin 29.6 pg (26-34); Mean Corpuscular Volume 89.3 fl (80-100); Mean Platelet Volume 8.4 fl (7.4-10.4); Platelet Count Result 282 k/mm3 (150-375); Red Blood Count 4.87 M/mm3 (4.6-6.20); Red Cell Distribution Width 12.2 % (11.5-14.5)
[2020-11-22 07:20] LABS: Anion Gap 9 mmol/L (8-16); Blood Urea Nitrogen 12 mg/dL (9-20); Calcium 8.8 mg/dL (8.4-10.2); Carbon Dioxide 22 mmol/L (22-30); Chloride 99 mmol/L (98-107); Estimated CRCL calculation 124 ml/min; Estimated Glomerular Filt Rate > 60; Glucose 135 mg/dL (65-110); Potassium 4.4 mmol/L (3.4-5.0); Sodium 130 mmol/L (137-145)
--- NOTE | 2020-11-22 08:27 | PCPTNOTE ---
Pt had a L hip xray yesterday, showing a femoral neck fx. Hospitalist note also states pt may consider hospice if pt fails swallow study today. Will hold PT at this time pending decision on management of hip fx and swallow study.
[2020-11-22 09:16] LABS: Glucose Point of Care 175 mg/dl (65-105)
--- NOTE | 2020-11-22 09:21 | WPDANESPN ---
Anes - Prog Note Post-Op Date/Time: 11/22/20 09:21 Cardiovascular status: normal Respiratory status: normal Airway patency: baseline Mental status: baseline Post-Op hydration status: normal Vital Signs: Last Vital Signs Temp 36.6 C 11/22/20 05:37 Pulse 74 11/22/20 05:37 Resp 16 11/22/20 05:37 BP 122/62 11/22/20 05:37 Pulse Ox 97 11/22/20 05:37 Pain Score (VAS): 2 I/O: Intake & Output 11/21/20 11/22/20 11/22/20 23:59 07:59 15:59 Intake Total 480 Output Total 700 800 Balance -220 -800 Laboratory Tests 11/22/20 06:39 11/22/20 06:39 11/17/20 11/21/20 11/21/20 18:04 09:14 14:18 WBC RBC Hgb Hct MCV MCH MCHC RDW Plt Count MPV Sodium Potassium Chloride Carbon Dioxide Anion Gap BUN Creatinine Estim Creat Clear Calc Estimated GFR Glucose POC Capillary Glucose 124 H Calcium Magnesium 1.8 Urine Osmolality 335 11/21/20 11/21/20 11/22/20 18:43 21:04 06:39 WBC 7.0 RBC 4.87 Hgb 14.4 Hct 43.5 MCV 89.3 MCH 29.6 MCHC 33.1 RDW 12.2 Plt Count 282 MPV 8.4 Sodium Potassium Chloride Carbon Dioxide Anion Gap BUN Creatinine Estim Creat Clear Calc Estimated GFR Glucose POC Capillary Glucose 136 H 135 H Calcium Magnesium Urine Osmolality 11/22/20 11/22/20 06:39 07:42 WBC RBC Hgb Hct MCV MCH MCHC RDW Plt Count MPV Sodium 130 L Potassium 4.4 Chloride 99 Carbon Dioxide 22 Anion Gap 9 BUN 12 Creatinine 0.50 L Estim Creat Clear Calc 124 Estimated GFR > 60 Glucose 135 H POC Capillary Glucose 175 H Calcium 8.8 Magnesium Urine Osmolality Post-procedural complaints: none Patient Feedback: Patient satisfied with anesthetic care.
--- NOTE | 2020-11-22 09:24 | PCSTNOTE ---
The patient treatment was not able to be completed on 11/22/20 due to hip repair surgery. Will plan to continue treatment per plan of care.
--- NOTE | 2020-11-22 09:24 | PCSTNOTE ---
The patient treatment was not able to be completed on 11/22/20 due to not feeling well. Patient stated that he ate breakfast too fast and then vomited after finishing meal. May try again later this morning. Will plan to continue treatment per plan of care.
[2020-11-22] MEDS: busPIRone HCL 5 MG TABLET PO ×3 (10:11→17:08)
[2020-11-22] MEDS: CARBIDOPA/LEVODOPA 25/100 MG TABLET 1 TABLET PO ×4 (10:11→20:21)
[2020-11-22 10:12] VITALS: PULSE 74
[2020-11-22] MEDS: OLANZapine 2.5 MG TABLET PO (10:12)
[2020-11-22] MEDS: SOTALOL HCL 80 MG TABLET PO ×3 (10:12→17:08)
[2020-11-22] MEDS: ENOXAPARIN 40 MG/0.4 ML SYRINGE SUB-Q (10:12)
[2020-11-22] MEDS: VENLAFAXINE HCL XR 75 MG CAP.ER.24H 150 MG PO (10:12)
[2020-11-22] MEDS: levoFLOXacin 500 MG TABLET PO (10:12)
[2020-11-22] MEDS: lisinopriL 2.5 MG TABLET PO (10:13)
[2020-11-22] MEDS: ALBUTEROL SULFATE (*SP) AEROSOL 1 PUFF 4 PUFF INHALATION ×3 (10:33→21:06)
[2020-11-22 12:15] LABS: Glucose Point of Care 205 mg/dl (65-105)
[2020-11-22] MEDS: INSULIN ASPART (*BKC) 100 UNITS/ML SUB-Q (12:16)
[2020-11-22] MEDS: PERFLUTREN LIPID MICROSPHERES 1.5 ML VIAL DILUTED TO 10 ML TOTAL VOLUME IV PUSH (13:35)
[2020-11-22 13:53] VITALS: PULSE 74
[2020-11-22 14:00] VITALS: BP 112/76; PULSE 77; RESP 18; TEMP 36.7; O2SAT 99
[2020-11-22] MEDS: AMINO ACIDS 4.25%/D5W/LYTES/CA 2,000 ML 75 ML IV CONT (16:21)
[2020-11-22] MEDS: FAT EMULSIONS IV 20% 250 ML 20.8 ML IVPB (16:22)
--- NOTE | 2020-11-22 16:45 | PC.NURSE ---
to xray per bed
[2020-11-22 17:08] VITALS: PULSE 77
--- NOTE | 2020-11-22 17:41 | PM.IMPN ---
Progress Note: A&P Assessment and Plan (1) Effusion of left knee: Code(s): M25.462 - Effusion, left knee Status: Acute (2) Pneumonia: Qualifiers: Pneumonia type: due to unspecified organism Laterality: left Lung location: lower lobe of lung Qualified Code(s): J18.9 - Pneumonia, unspecified organism Code(s): J18.9 - Pneumonia, unspecified organism Status: Acute (3) Fall: Qualifiers: Encounter type: initial encounter Qualified Code(s): W19.XXXA - Unspecified fall, initial encounter Code(s): W19.XXXA - Unspecified fall, initial encounter Status: Acute (4) DM2 (diabetes mellitus, type 2): Qualifiers: Diabetes mellitus terminal computer operator insulin use: with longterm use Diabetes mellitus complication status: without complication Qualified Code(s): E11.9 - Type 2 diabetes mellitus without complications; Z79.4 - keno terminal operator (current) use of insulin Code(s): E11.9 - Type 2 diabetes mellitus without complications Status: Chronic (5) Asthma: Qualifiers: Asthma severity: unspecified severity Asthma persistence: unspecified Asthma complication type: unspecified Qualified Code(s): J45.909 - Unspecified asthma, uncomplicated Code(s): J45.909 - Unspecified asthma, uncomplicated Status: Chronic (6) HLD (hyperlipidemia): Qualifiers: Hyperlipidemia type: unspecified Qualified Code(s): E78.5 - Hyperlipidemia, unspecified Code(s): E78.5 - Hyperlipidemia, unspecified Status: Chronic (7) Dysphagia: Qualifiers: Dysphagia type: unspecified Qualified Code(s): R13.10 - Dysphagia, unspecified Code(s): R13.10 - Dysphagia, unspecified Status: Acute (8) Parkinsons: Code(s): G20 - Parkinson's disease Status: Acute (9) HTN (hypertension): Qualifiers: Hypertension type: unspecified Qualified Code(s): I10 - Essential (primary) hypertension Code(s): I10 - Essential (primary) hypertension Status: Chronic (10) Hyponatremia: Code(s): E87.1 - Hypo-osmolality and hyponatremia Status: Acute (11) Physical deconditioning: Code(s): R53.81 - Other malaise Status: Acute Additional Plan Community-acquired pneumonia, left lower lobe: Given history of dysphagia there were also concerns regarding a component of aspiration pneumonia However at this time we will continue with ceftriaxone azithromycin Anaerobic coverage is not required at this time Will convert IV antibiotics to p.o. 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 Speech therapy has also been consulted during this admission and evaluated the patient this morning Given his symptoms I have modified barium swallow is recommended which will be performed tomorrow as per discussion 11/21/20 15:02 11/22/20 17:41 patient is 70-year-old male with a community-acquired pneumonia and failed swallow study, patient did not want NG tube placed and he wants to have PEG, there was long discussion between s0n, daughter and patient and family they agreed with the PEG and plan was to consult GI further recommendation, normally patient is placed on NG tube before going to insert PEG, we have consulted GI to see if they place PEG, as patient is refusing NG tube, will wait to hear from the GI, meanwhile will place on prcalamine to provide some nutrients, patient remains clinically stable will continue IV antibiotic and repeat x-ray tomorrow morning further recommendat
[2020-11-22 18:02] LABS: Glucose Point of Care 109 mg/dl (65-105)
[2020-11-22] MEDS: rOPINIRole HCL 1 MG TABLET PO (20:21)
[2020-11-22] MEDS: traZODone HCL 50 MG TABLET 100 MG PO (20:22)
[2020-11-22] MEDS: INSULIN GLARGINE (*BKC) 100 UNITS/ML 20 UNITS SUB-Q (20:27)
--- NOTE | 2020-11-22 20:31 | PM.CNOR ---
Assessment and Plan Additional Plan Patient is a 70-year-old gentleman who was noted yesterday afternoon to have a left subcapital femoral neck fracture subacute with marked displacement and impaction. I was notified this afternoon of the consultation. He was admitted on 11/15 due to progressive weakness. It had his 2nd fall and was complaining of left knee pain and x-rays again were obtained of his left knee which shows severe osteoarthritis in the left knee. He has a history of Parkinson's disease and contractures and decreased overall mobility so his examination is difficult. He was actually seen the day before in the emergency room after another fall and complained of left knee pain and left knee x-rays show the arthritis no fracture and AP pelvis x-ray at that time showed no definite evidence for fracture either hip. During his admission he was found to have evidence of aspiration pneumonia and he has had a swallow study that shows that he is indeed aspirating and GI is following him and he is on IV Levaquin for the aspiration pneumonia. He started complaining more of left knee and also left thigh and hip pain yesterday for the 1st time and new x-rays of left hip were obtained which show that he now has a displaced femoral neck fracture. On exam he does have a slight speech impediment due to his Parkinson's disease. He was living in assisted living and using a walker full-time because of his Parkinson's disease. He is alert and oriented. He is laying on his right side which has been most comfortable for him. He cannot tolerate Amos straight supine. He has intact sensation on his left foot although he does apparently have some degree of neuropathy he believes related to his diabetes. He wiggles his toes up and down without difficulty he had strong 2+ dorsalis pedis and posterior tibial artery pulse palpable. He had no lower extremity swelling or edema the skin around his hip thigh looked intact. He denies any other injury except for pain around the anterolateral hip area. This is on the left. His past medical history is significant for prior MT and coronary artery stents, diabetes, and significant Parkinson's disease. He is noted to have history of obstructive sleep apnea and we now know he has aspiration problems in the ED allergy for that is unclear. It may be based on the severity of his Parkinson's disease. He states he has never had a stroke. I have discussed options with him. Nonsurgical treatment would mean that he would never be able to walk again I believe even with a walker. With bipolar hemiarthroplasty which be the appropriate surgery for him, he has the best chance of regaining some degree of ambulation. He would like to proceed with that to optimize his quality of life and he does not feel that being nonambulatory would be acceptable. At a minimum, having his hip stabilized would make it easier for him to have transfers and have appropriate nursing care and upright positioning for eating. I have discussed with him that there are risks of complications with surgery such as infection blood clots fracture bleeding transfusion medical complications such as heart attack stroke pulmonary embolism and . He states he has no personal history of blood clot problems or family history that he knows of. Studies demonstrate that non operative treatment actually has a higher 30 and 90 day mortality with hip fracture management then operative treatment. He would like to proceed with partial hip replacement as discussed. I have reviewed Dr. Ramírez's note. An echocardiogram will be ordered and I will consult cardiology for their input. He is at significantly higher risk for having cardiac complications after surgery because of his history and his overall deconditioned status and his risk for medical complications and delirium is significantly elevated because of his concomitant pneumonia and severe Parkinson's disease. He expressed understanding of the
[2020-11-22 20:46] LABS: Glucose Point of Care 189 mg/dl (65-105)
[2020-11-22 22:00] VITALS: BP 119/76; PULSE 74; RESP 18; TEMP 36.6; O2SAT 97
[2020-11-23] VITALS (21 sets, daily range): BP systolic 81–126; BP diastolic 58–79; PULSE 57–86; RESP 11–18; TEMP 36.4–37; O2SAT 94–100
[2020-11-23] MEDS: ALBUTEROL SULFATE (*SP) AEROSOL 1 PUFF 4 PUFF INHALATION ×3 (02:35→22:12)
[2020-11-23] MEDS: MORPHINE SULFATE (*CRX) 2 MG/ML INJ IV PUSH ×2 (05:20→09:55)
[2020-11-23 06:47] LABS: Hematocrit 42.5 % (42.0-52.0); Hemoglobin 14.2 g/dL (14.0-18.0); Mean Corpuscular HGB Conc 33.4 g/dl (32-36); Mean Corpuscular Hemoglobin 29.2 pg (26-34); Mean Corpuscular Volume 87.4 fl (80-100); Mean Platelet Volume 8.2 fl (7.4-10.4); Platelet Count Result 279 k/mm3 (150-375); Red Blood Count 4.86 M/mm3 (4.6-6.20); White Blood Count 7.1 K/mm3 (4.5-10.0)
[2020-11-23 07:12] LABS: Anion Gap 6 mmol/L (8-16); Blood Urea Nitrogen 13 mg/dL (9-20); Calcium 8.9 mg/dL (8.4-10.2); Carbon Dioxide 25 mmol/L (22-30); Chloride 102 mmol/L (98-107); Estimated CRCL calculation 124 ml/min; Estimated Glomerular Filt Rate > 60; Glucose 174 mg/dL (65-110); Potassium 4.4 mmol/L (3.4-5.0); Sodium 133 mmol/L (137-145)
[2020-11-23 08:15] LABS: Glucose Point of Care 172 mg/dl (65-105)
[2020-11-23] MEDS: CARBIDOPA/LEVODOPA 25/100 MG TABLET 1 TABLET PO ×3 (09:46→21:05)
[2020-11-23] MEDS: SOTALOL HCL 80 MG TABLET PO ×2 (09:46→18:07)
[2020-11-23 11:30] LABS: Glucose Point of Care 149 mg/dl (65-105)
--- NOTE | 2020-11-23 11:30 | PCNFU ---
Nutrition Follow-Up Complete: Swallowing Difficulties as related to Dysphagia as evidenced by NPO Goal: Meet estimated nutritional needs Patient is progressing slowly towards goal. We will continue current goal. Pt current nutrition is PPN/NPO. Last recorded weight is 84 kg, no new weight to report. Bowel Motility:+BM reported 11/22 Labs Reviewed:Na 133,Cr 0.5,Glu 174 Meds Noted:Effexor,Lantus, Clinimix E 4.25/5 with 250 ml of Lipid Emulsion, Betapace. Additional Notes: Nutrition follow up. Patient did not have a PEG placed. Plans for surgery today for hip repair. PPN has been 1/2 rated per nursing. Spoke with speech therapy today, MBS is recommend prior to discharge. If patient remains on IV nutrition recommend changed to central line TPN at 80 ml/hr providing 1863 kcals and 96 gms protein. Monitoring: Will monitor every Thursday and Thursday.
--- NOTE | 2020-11-23 12:38 | WPDANESEPPF ---
Anes - Initial Pre Proc Eval Procedure: Operation Date: 11/21/20 12:30 Proposed Procedures p Esophagogastroduodenoscopy - Chapin Cruz MD Operation Date: 11/23/20 13:00 Proposed Procedures p Left Bipolar Hip - Nico Schmidt MD Date/Time: 11/23/20 12:38 Surgeon: Js Ramírez MD Pre Op Diagnosis: pneumonia,generalized weakness,knee contusion Patient Data Age: 70 Gender: M Height: 1.8 m Weight: 84 kg Last Vital Signs Temp 36.7 C 11/23/20 06:00 Pulse 86 11/23/20 12:00 Resp 18 11/23/20 06:00 BP 113/68 11/23/20 06:00 Pulse Ox 96 11/23/20 06:00 Allergies Allergy/AdvReac Type Severity Reaction Status Date / Time No Known Allergies Allergy Verified 11/21/20 11:28 Home Medications Medication Instructions Recorded Confirmed Type albuterol sulfate 90 mcg/actuation 2 puff INHALATION Q4H PRN 05/25/20 11/15/20 History aerosol inhaler buspirone 5 mg tablet 5 mg PO TID 05/25/20 11/15/20 History cholecalciferol (vitamin D3) 50 50 mcg PO DAILY 05/25/20 11/15/20 History mcg (2,000 unit) capsule lisinopril 2.5 mg tablet 2.5 mg PO DAILY 05/25/20 11/15/20 History metformin 1,000 mg tablet 1,000 mg PO BID 05/25/20 11/15/20 History omeprazole 20 mg capsule,delayed 20 mg PO DAILY 05/25/20 11/15/20 History release trazodone 100 mg tablet 100 mg PO HS 05/25/20 11/15/20 History carbidopa-levodopa 1 tablet PO QID 09/07/20 11/15/20 History furosemide 40 mg PO DAILY 09/07/20 11/15/20 History magnesium oxide 400 mg PO DAILY 09/07/20 11/15/20 History ropinirole 1 mg PO HS 09/07/20 11/15/20 History venlafaxine 150 mg PO DAILY 09/07/20 11/15/20 History Tresiba FlexTouch U-200 20 unit SUBCUT HS 09/09/20 11/15/20 History olanzapine [Zyprexa] 2.5 mg PO DAILY 30 Days #30 tablet 09/10/20 11/15/20 Rx sotalol 80 mg PO TID #0 tablet 09/10/20 11/15/20 Rx naproxen 250 mg PO BID #10 tablet 11/14/20 11/15/20 Rx Laboratory Tests 11/22/20 11/22/20 11/22/20 17:25 20:20 20:58 WBC RBC Hgb Hct MCV MCH MCHC RDW Plt Count MPV Sodium Potassium Chloride Carbon Dioxide Anion Gap BUN Creatinine Estim Creat Clear Calc Estimated GFR Glucose POC Capillary Glucose 109 mg/dl H mg/dl 189 mg/dl H mg/dl (65-105) (65-105) Calcium Blood Type B Positive Antibody Screen Negative 11/23/20 11/23/20 11/23/20 06:39 06:39 08:08 WBC 7.1 K/mm3 K/mm3 (4.5-10.0) RBC 4.86 M/mm3 M/mm3 (4.6-6.20) Hgb 14.2 g/dL g/dL (14.0-18.0) Hct 42.5 % % (42.0-52.0) MCV 87.4 fl fl (80-100) MCH 29.2 pg pg (26-34) MCHC 33.4 g/dl g/dl (32-36) RDW 12.0 % % (11.5-14.5) Plt Count 279 k/mm3 k/mm3 (150-375) MPV 8.2 fl fl (7.4-10.4) Sodium 133 mmol/L L mmol/L (137-145) Potassium 4.4 mmol/L mmol/L (3.4-5.0) Chloride 102 mmol/L mmol/L (98-107) Carbon Dioxide 25 mmol/L mmol/L (22-30) Anion Gap 6 mmol/L L mmol/L (8-16) BUN 13 mg/dL mg/dL (9-20) Creatinine 0.50 mg/dL L mg/dL (0.7-1.3) Estim Creat Clear Calc 124 ml/min ml/min Estimated GFR > 60 (59 - ) Glucose 174 mg/dL H mg/dL (65-110) POC Capillary Glucose 172 mg/dl H mg/dl (65-105) Calcium 8.9 mg/dL mg/dL (8.4-10.2) Blood Type Antibody Screen 11/23/20 11:26 WBC RBC Hgb Hct MCV MCH MCHC RDW Plt Count MPV Sodium Potassium Chloride Carbon Dioxide Anion Gap BUN Creatinine Estim Creat Clear Calc Estimated
[2020-11-23] MEDS: LACTATED RINGERS 1,000 ML 30 ML IV CONT (12:50)
[2020-11-23] MEDS: TRANEXAMIC ACID 1,000MG/ISO100 1,000 MG/100 ML BAG 200 MG IVPB (13:03)
--- NOTE | 2020-11-23 13:05 | WPDHPUPDATE1 ---
History and Physical Update Update Date/Time: 11/23/20 13:05 History and Physical has been reviewed, including an updated exam of the patient. There are NO changes in the patient's condition. Risks, benefits, and alternatives have been discussed and questions answered. Patient agrees to proceed with procedure.
--- NOTE | 2020-11-23 13:12 | PM.IMPN ---
Progress Note: A&P Assessment and Plan (1) Effusion of left knee: Code(s): M25.462 - Effusion, left knee Status: Acute (2) Pneumonia: Qualifiers: Pneumonia type: due to unspecified organism Laterality: left Lung location: lower lobe of lung Qualified Code(s): J18.9 - Pneumonia, unspecified organism Code(s): J18.9 - Pneumonia, unspecified organism Status: Acute (3) Fall: Qualifiers: Encounter type: initial encounter Qualified Code(s): W19.XXXA - Unspecified fall, initial encounter Code(s): W19.XXXA - Unspecified fall, initial encounter Status: Acute (4) DM2 (diabetes mellitus, type 2): Qualifiers: Diabetes mellitus intermission coordinator insulin use: with [facility] use Diabetes mellitus complication status: without complication Qualified Code(s): E11.9 - Type 2 diabetes mellitus without complications; Z79.4 - watermaster (current) use of insulin Code(s): E11.9 - Type 2 diabetes mellitus without complications Status: Chronic (5) Asthma: Qualifiers: Asthma severity: unspecified severity Asthma persistence: unspecified Asthma complication type: unspecified Qualified Code(s): J45.909 - Unspecified asthma, uncomplicated Code(s): J45.909 - Unspecified asthma, uncomplicated Status: Chronic (6) HLD (hyperlipidemia): Qualifiers: Hyperlipidemia type: unspecified Qualified Code(s): E78.5 - Hyperlipidemia, unspecified Code(s): E78.5 - Hyperlipidemia, unspecified Status: Chronic (7) Dysphagia: Qualifiers: Dysphagia type: unspecified Qualified Code(s): R13.10 - Dysphagia, unspecified Code(s): R13.10 - Dysphagia, unspecified Status: Acute (8) Parkinsons: Code(s): G20 - Parkinson's disease Status: Acute (9) HTN (hypertension): Qualifiers: Hypertension type: unspecified Qualified Code(s): I10 - Essential (primary) hypertension Code(s): I10 - Essential (primary) hypertension Status: Chronic (10) Hyponatremia: Code(s): E87.1 - Hypo-osmolality and hyponatremia Status: Acute (11) Physical deconditioning: Code(s): R53.81 - Other malaise Status: Acute Additional Plan Community-acquired pneumonia, left lower lobe: Given history of dysphagia there were also concerns regarding a component of aspiration pneumonia However at this time we will continue with ceftriaxone azithromycin Anaerobic coverage is not required at this time Will convert IV antibiotics to p.o. 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 Speech therapy has also been consulted during this admission and evaluated the patient this morning Given his symptoms I have modified barium swallow is recommended which will be performed tomorrow as per discussion 11/21/20 15:02 11/23/20 13:12 patient is 70-year-old male with a community-acquired pneumonia and failed swallow study, patient did not want NG tube placed and he wants to have PEG, there was long discussion between s0n, daughter and patient and family they agreed with the PEG and plan was to consult GI further recommendation, normally patient is placed on NG tube before going to insert PEG, we have consulted GI to see if they place PEG, as patient is refusing NG tube, will wait to hear from the GI, meanwhile will place on prcalamine to provide some nutrients, patient remains clinically stable will continue IV antibiotic and repeat x-ray tomorrow morning further recommendat
[2020-11-23] MEDS: ceFAZolin 2 GM/D5W 50 ML 2 GM/50 ML BAG IVPB (13:38)
[2020-11-23] MEDS: ceFAZolin SODIUM 1 GM VIAL 3 GM IV PUSH (14:32)
[2020-11-23] MEDS: ceFAZolin SODIUM 1 GM VIAL IV PUSH (15:07)
[2020-11-23] MEDS: TRANEXAMIC ACID 1,000 MG/10 ML AMPUL 1000 MG IV PUSH (15:08)
--- NOTE | 2020-11-23 15:22 | W.PM.PROC2 ---
Procedure Note - Detailed Date of Procedure 11/23/20 Pre-op Diagnosis Displaced left subcapital femoral neck fracture Post-op Diagnosis same Procedure Performed Press-Fit bipolar hemiarthroplasty left hip Surgeon Nico Schmidt MD Shot Blast Equipment Operator rita Anesthesia general Indications Severe pain and mobility displaced hip fracture Findings Subacute left subcapital femoral neck fracture severely displaced Description of Procedure Patient was brought to the operating room and general anesthesia was administered. The left hip was thoroughly scrubbed with a chlorhexidine cloth. He received 2 g of Ancef weight based vancomycin 1 g of tranexamic acid preoperatively. He was placed in lateral decubitus position left hip prepped draped usual fashion. A 7 in longitudinal incision was made centered over the greater trochanter. Dissection was carried down to the fascia which was longitudinally incised. The anterior 50% gluteus medius and gluteus minimus were elevated off the greater trochanter. These tendons were in good condition. Capsule was incised superiorly and elevated off the anterior femur. Femoral neck osteotomy was made according to preoperative templating. Femoral head was removed and measured 50.5 mm and a 51 mm bipolar head trial fit nicely in the acetabulum. The femur was broached up to a size 7 Actis. We chose the Actis stem and this patient as he was younger and this would hopefully avoid the use of cement and delayed loosening. Also because of his Parkinson's we did not know how well he would be able to maintain a protected weight-bearing status so having a collar was important. The 7 seemed to have good axial stability. Is cancellous bone was of good quality. We took an intraoperative x-ray with the 1.5 mm neck length and we had equal offsets and equal leg lengths. The broach did seem slightly undersized. We we found that we had appropriate stability in all positions. He was tight though in extension and abduction which I believe due is due to his Parkinson's disease. We were able to dislocate the hip in the figure 4 position without traction I felt that the soft tissue tension was appropriate. We carefully looked at the 7 mm broach and I found that it did have a very slight wiggle possible. We backed the broach out a few mm and with the concise gun it seated another few mm in without much difficulty. We went up to the size 8 and this approach side has excellent stability both torsional E and actually. We were able to countersink it about 2 mm below the neck cut and calcar planed to accommodate the increase in neck length in the size jump. The standard size 8 Actis stem was placed and seated fully with excellent stability. We trialed with the 1.5 was appropriate. The 1.5 x 28 mm head was assembled to the 51 mm bipolar head and the construct applied to the clean and dried trunnion. The wound was again irrigated with antibiotic solution hip reduced without difficulty stability reconfirmed. Capsule was repaired with 2. Ethibond abductors were read repaired back to the bone with 5. Ethibond through drill holes and 2. Ethibond. Fascia was closed with 2. Vicryl and unidirectional barbed 1. Stratafix suture. A drain was placed deep in subcutaneous tissue is the skin closed with 2-0 subcutaneous Vicryl and still glue. EBL is 100 only 200 cc. He received 1/3 g Ancef and 2nd g of tranexamic acid time wound closure. There were no known complications. Implants Or Actis stem Estimated Blood Loss 200 Urine Output 600 Drains Yes Packing No Pathology yes Complications No immediate complications Condition stable Disposition PACU
[2020-11-23 16:13] LABS: Glucose Point of Care 183 mg/dl (65-105)
--- NOTE | 2020-11-23 16:39 | SUR.PHASEI ---
1640 sbar faxed floor notified
[2020-11-23] MEDS: AMINO ACIDS 4.25%/D5W/LYTES/CA 2,000 ML 75 ML IV CONT (17:26)
[2020-11-23] MEDS: FAT EMULSIONS IV 20% 250 ML 20.8 ML IVPB (17:27)
[2020-11-23] MEDS: SENNA/DOCUSATE SODIUM TABLET 2 TAB PO (18:05)
[2020-11-23] MEDS: busPIRone HCL 5 MG TABLET PO (18:06)
[2020-11-23] MEDS: oxyCODONE HCL (*CRX) 2.5 MG TAB IR PO ×3 (18:09→23:56)
[2020-11-23] MEDS: KCL 20 MEQ/D5/0.45% SOD CHL 1,000 ML 80 ML IV CONT (19:25)
[2020-11-23] MEDS: rOPINIRole HCL 1 MG TABLET PO (21:04)
[2020-11-23] MEDS: INSULIN GLARGINE (*BKC) 100 UNITS/ML 20 UNITS SUB-Q (21:04)
[2020-11-23] MEDS: traZODone HCL 50 MG TABLET 100 MG PO (21:04)
[2020-11-23 23:37] LABS: Glucose Point of Care 232 mg/dl (65-105)
[2020-11-24] VITALS (13 sets, daily range): BP systolic 120–145; BP diastolic 66–76; PULSE 64–98; RESP 16–20; TEMP 36.4–37.1; O2SAT 95–99
[2020-11-24] MEDS: ALBUTEROL SULFATE (*SP) AEROSOL 1 PUFF 4 PUFF INHALATION ×4 (02:29→21:17)
[2020-11-24] MEDS: oxyCODONE HCL (*CRX) 2.5 MG TAB IR PO (05:14)
[2020-11-24] MEDS: CEPHALEXIN 500 MG CAPSULE PO ×3 (05:15→17:35)
[2020-11-24 06:57] LABS: Hematocrit 40.4 % (42.0-52.0); Hemoglobin 13.7 g/dL (14.0-18.0); Mean Corpuscular HGB Conc 33.9 g/dl (32-36); Mean Corpuscular Hemoglobin 29.1 pg (26-34); Mean Platelet Volume 8.5 fl (7.4-10.4); Platelet Count Result 307 k/mm3 (150-375); Red Cell Distribution Width 11.8 % (11.5-14.5); White Blood Count 10.8 K/mm3 (4.5-10.0)
[2020-11-24 07:10] LABS: Anion Gap 7 mmol/L (8-16); Blood Urea Nitrogen 13 mg/dL (9-20); Calcium 8.6 mg/dL (8.4-10.2); Carbon Dioxide 24 mmol/L (22-30); Chloride 96 mmol/L (98-107); Estimated CRCL calculation 124 ml/min; Estimated Glomerular Filt Rate > 60; Glucose 219 mg/dL (65-110); Potassium 4.2 mmol/L (3.4-5.0); Sodium 127 mmol/L (137-145)
[2020-11-24 08:53] LABS: Glucose Point of Care 255 mg/dl (65-105)
[2020-11-24] MEDS: DEXTROSE 5%/0.9% SOD CHL 1,000 ML 80 ML IV CONT (09:29)
[2020-11-24] MEDS: INSULIN ASPART (*BKC) 100 UNITS/ML SUB-Q ×2 (09:30→13:52)
[2020-11-24] MEDS: busPIRone HCL 5 MG TABLET PO ×3 (09:37→17:35)
[2020-11-24] MEDS: CARBIDOPA/LEVODOPA 25/100 MG TABLET 1 TABLET PO ×4 (09:37→22:24)
[2020-11-24] MEDS: APIXABAN 2.5 MG TABLET PO ×2 (09:37→22:25)
[2020-11-24] MEDS: CHOLECALCIFEROL 1,000 UNITS TABLET 2000 UNITS PO (09:38)
[2020-11-24] MEDS: SENNA/DOCUSATE SODIUM TABLET 2 TAB PO ×2 (09:38→17:35)
[2020-11-24] MEDS: lisinopriL 2.5 MG TABLET PO (09:38)
[2020-11-24] MEDS: polyethylene glycoL 3350 17 GM POWD.PACK PO (09:39)
[2020-11-24] MEDS: MAGNESIUM OXIDE 400 MG TABLET PO (09:39)
[2020-11-24] MEDS: PANTOPRAZOLE 40 MG TABLET PO (09:39)
[2020-11-24] MEDS: OLANZapine 2.5 MG TABLET PO (09:39)
[2020-11-24] MEDS: VENLAFAXINE HCL XR 75 MG CAP.ER.24H 150 MG PO (09:40)
[2020-11-24] MEDS: SOTALOL HCL 80 MG TABLET PO ×3 (09:40→17:35)
[2020-11-24] MEDS: oxyCODONE HCL (*CRX) 5 MG TAB IR PO ×4 (09:52→22:28)
[2020-11-24] MEDS: MORPHINE SULFATE (*CRX) 2 MG/ML INJ IV PUSH (09:55)
--- NOTE | 2020-11-24 10:05 | PM.PNORT ---
Progress Note: A&P Additional Plan Patient is postop day 1 after bipolar hemiarthroplasty of his left hip. He is sitting up in the chair. He did take the couple of steps to get there. He complains that he does not have control over his left leg and he reports that his pain is 10/10. He has the speech impediment of his severe Parkinson's disease. We will give him the 2 mg IV morphine that is ordered for breakthrough pain and I am going to increase his scheduled 2.5 mg oxycodone up to 5 mg oxycodone q.4 hours and he still has the 5 mg q.4 hours p.r.n. oxycodone order. I am reluctant to add an anti-inflammatory medication not so much because of the fact that he is on Eliquis but he does have some question of GI problem currently. He has been drinking clear liquids this morning and he has swallowed his pills without difficulty. We will follow the recommendations of the swallowing therapists. He has no swelling in the leg his hip dressing is dry the drain is out. His hemoglobin is 13.7 due to acute blood loss anemia mild white count 10.8. Platelet count [id number]. Eliquis was started at 9:00 a.m. this morning for DVT prophylaxis. His her sodium was 127. This is down from 133 yesterday. Last week he had a sodium of 129. He will be mobilized as tolerated. His rehab will be difficult as he does have severe Parkinson's disease and is a minimal ambulator. 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 Subjective Subjective Date/Time Seen: 11/24/20 10:05 Objective Data Vital Signs Vital Signs: Vital Signs - 24 hr 11/23/20 12:00 11/23/20 12:08 11/23/20 15:50 Temperature 37.0 C 36.8 C Pulse Rate 86 78 57 L Respiratory Rate 16 11 L Blood Pressure 123/77 81/58 L Pulse Oximetry 96 99 11/23/20 16:05 11/23/20 16:20 11/23/20 16:35 Temperature Pulse Rate 68 63 70 Respiratory Rate 18 16 14 Blood Pressure 114/72 125/72 124/77 Pulse Oximetry 100 96 95 11/23/20 16:50 11/23/20 17:15 11/23/20 17:30 Temperature 36.8 C 36.6 C Pulse Rate 74 78 75 Respiratory Rate 14 18 18 Blood Pressure 121/74 117/76 121/74 Pulse Oximetry 95 96 95 11/23/20 18:00 11/23/20 18:07 11/23/20 19:00 Temperature 36.7 C 36.4 C Pulse Rate 80 80 81 Respiratory Rate 16 16 Blood Pressure 116/71 126/79 Pulse Oximetry 95 94 11/23/20 20:00 11/23/20 20:52 11/23/20 22:15 Temperature 36.5 C Pulse Rate 82 76 68 Respiratory Rate 18 17 Blood Pressure 116/76 Pulse Oximetry 96 11/24/20 00:00 11/24/20 01:09 11/24/20 04:00 Temperature 36.4 C L Pulse Rate 80 65 79 Respiratory Rate 18 Blood Pressure 137/72 Pulse Oximetry 95 11/24/20 06:44 11/24/20 08:00 11/24/20 09:40 Temperature 36.7 C 36.7 C Pulse Rate 73 82 82 Respiratory Rate 18 18 Blood Pressure 145/71 H 129/66 Pulse Oximetry 97 99 Intake/Output Intake/Output: Intake & Output 11/21/20 11/22/20 11/23/20 11/24/20 23:59 23:59 23:59 23:59 Intake Total 2131 3290 3310 1100 Output Total 1450 2000 1800 1425 Balance 681 1290 1510 -325 Meds/Results Medications: Active Medications Generic Name Dose Route Start Last Admin Trade Name Freq PRN Reason Stop Dose Admin Albuterol 4 puff 11/15/20 20:00 11/24/20 09:57 Albuterol Sulfate (*Sp) Aerosol 1 Puff INHALATION 4 puff Q6HRT AGNIESZKA Administration Apixaban 2.5 mg 11/24/20 09:00 11/24/20 09:37 Apixaban 2.5 Mg Tablet PO 12/29/20 09:01 2.5 mg Q12HR AGNIESZKA Administration Buspirone HCl 5 mg 11/15/20 17:00 11/24/20 09:37 Buspirone Hcl 5 Mg Tablet PO 5 mg TID AGNIESZKA Administration Carbidopa/Levodopa 1 tablet 11/15/20 21:00 11/24/20 09:37 Carbidopa/Levodopa 25/100 Mg Tablet PO 1 tablet QID AGNIESZKA Administration Cephalexin HCl 500 mg 11/24/20 06:00 11/24/20 05:15 Cephalexin 500 Mg Capsule PO 12/04/20 06:01 500 mg Q6HR AGNIESZKA Administration Dextrose 12.5 gm 11/15/20 13:34 Dextrose 50% 25 Gm/50 Ml Syringe IV PUSH PRN PRN Hypoglycem
[2020-11-24 12:19] LABS: Glucose Point of Care 211 mg/dl (65-105)
[2020-11-24 13:21] LABS: Sodium 130 mmol/L (137-145)
--- NOTE | 2020-11-24 13:59 | PM.IMPN ---
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 Hold diuretics Fluids to NS TSH and Cortisol FEU 11/25 Na 127 in AM, 130 at 1 PM after fluid changes (2) Hip fracture, left: Qualifiers: Encounter type: sequela Fracture type: closed Qualified Code(s): S72.002S - Fracture of unspecified part of neck of left femur, sequela Code(s): S72.002A - Fracture of unspecified part of neck of left femur, initial encounter for closed fracture Status: Acute Assessment and Plan: POD #1 BPHA (3) Pneumonia: Qualifiers: Pneumonia type: due to unspecified organism Laterality: left Lung location: lower lobe of lung Qualified Code(s): J18.9 - Pneumonia, unspecified organism Code(s): J18.9 - Pneumonia, unspecified organism Status: Acute Assessment and Plan: Completed course of antibx Clinically resolved (4) DM2 (diabetes mellitus, type 2): Qualifiers: Diabetes mellitus emt 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 insulin use: with emt 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 use Diabetes mellitus complication status: without complication Qualified Code(s): E11.9 - Type 2 diabetes mellitus without complications; 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 Code(s): E11.9 - Type 2 diabetes mellitus without complications Status: Chronic Assessment and Plan: 11/24 FBS 211 Continue basal and SSI (5) Dysphagia: Qualifiers: Dysphagia type: unspecified Qualified Code(s): R13.10 - Dysphagia, unspecified Code(s): R13.10 - Dysphagia, unspecified Status: Acute Assessment and Plan: Did well with second swallow eval Tolerating diet (6) Parkinsons: Code(s): G20 - Parkinson's disease Status: Acute Assessment and Plan: Continue home regimen (7) Asthma: Qualifiers: Asthma severity: unspecified severity Asthma persistence: unspecified Asthma complication type: unspecified Qualified Code(s): J45.909 - Unspecified asthma, uncomplicated Code(s): J45.909 - Unspecified asthma, uncomplicated Status: Chronic Assessment and Plan: Stable (8) HTN (hypertension): Qualifiers: Hypertension type: unspecified Qualified Code(s): I10 - Essential (primary) hypertension Code(s): I10 - Essential (primary) hypertension Status: Chronic Assessment and Plan: 11/24 BP reviewed and stable (9) Effusion of left knee: Code(s): M25.462 - Effusion, left knee Status: Acute Subjective Date/time seen: 11/24/20 13:59 Exam Narrative: HEENT: PERRL, sclerae nonicteric, pharyngeal mucosa pink and intact NECK: No JVD CHEST: Scattered bibasilar crackles. Normal effort. HEART: NL S1/S2, regular, no murmur ABDOMEN: BS+, soft, nontender, no mass, no bruits EXTREMITIES: No cyanosis, edema, or clubbing NEUROLOGIC: CN intact and symmetric to inspection. MUSCULOSKELETAL: Tone and strength symmetric. PSYCH: Alert. Oriented to person, place, and time (including year and month). Objective Data Vital Signs Vital Signs: Vital Signs - 24 hr 11/23/20 15:50 11/23/20 16:05 11/23/20 16:20 Temperature 98.2 F Pulse Rate 57 L 68 63 Respiratory Rate 11 L 18 16 Blood Pressure 81/58 L 114/72 125/72 Pulse Oximetry 99 100 96 11/23/20 16:35 11/23/20 16:50 11/23/20 17:15 Temperature 98.2 F Pulse Rate 70 74 78 Respiratory Rate 14 14 18 Blood Pressure 124/77 121/74 117/76 Pulse Oximetry 95 95 96 11/23/20 17:30 11/23/20 18:00 11/23/20 18:07 Temperature 97.9 F 98.0 F Pulse Rate 75 80 80 Respiratory Rate 18 16 Blood Pressure 121/74 116/71 Pulse Oximetry 95 95 11/23/20 19:00 11/23/20 20:00 11/23/20 20:52 Temperature 97.6 F 97.7 F Pulse Rate 81 82 76 Respiratory Rate 16 18 Blood Pressure 126/79 116/76 Pulse Oximetry 94 96 11/23/20 22:15 11/24/20 00:00 11/24/20 01:0
[2020-11-24 16:46] LABS: Urea Random Urine 469 MG/DL
[2020-11-24 17:12] LABS: Glucose Point of Care 165 mg/dl (65-105)
[2020-11-24] MEDS: rOPINIRole HCL 1 MG TABLET PO (22:25)
[2020-11-24] MEDS: traZODone HCL 50 MG TABLET 100 MG PO (22:25)
[2020-11-24] MEDS: INSULIN GLARGINE (*BKC) 100 UNITS/ML 20 UNITS SUB-Q (22:30)
[2020-11-24 22:39] LABS: Glucose Point of Care 147 mg/dl (65-105)
[2020-11-25] VITALS (13 sets, daily range): BP systolic 98–146; BP diastolic 44–73; PULSE 66–87; RESP 18–20; TEMP 36.4–37.8; O2SAT 95–99
[2020-11-25] MEDS: CEPHALEXIN 500 MG CAPSULE PO ×4 (01:49→18:10)
[2020-11-25] MEDS: DEXTROSE 5%/0.9% SOD CHL 1,000 ML 80 ML IV CONT ×2 (01:54→15:52)
[2020-11-25] MEDS: ALBUTEROL SULFATE (*SP) AEROSOL 1 PUFF 4 PUFF INHALATION ×3 (02:30→15:12)
[2020-11-25] MEDS: oxyCODONE HCL (*CRX) 5 MG TAB IR PO ×4 (05:08→14:11)
[2020-11-25 06:57] LABS: Hematocrit 37.8 % (42.0-52.0); Hemoglobin 12.6 g/dL (14.0-18.0); Mean Corpuscular HGB Conc 33.3 g/dl (32-36); Mean Corpuscular Hemoglobin 29.4 pg (26-34); Mean Corpuscular Volume 88.1 fl (80-100); Mean Platelet Volume 8.6 fl (7.4-10.4); Platelet Count Result 266 k/mm3 (150-375); Red Blood Count 4.29 M/mm3 (4.6-6.20); White Blood Count 9.2 K/mm3 (4.5-10.0)
[2020-11-25 07:15] LABS: Anion Gap 6 mmol/L (8-16); Blood Urea Nitrogen 10 mg/dL (9-20); Calcium 8.5 mg/dL (8.4-10.2); Carbon Dioxide 25 mmol/L (22-30); Chloride 98 mmol/L (98-107); Estimated CRCL calculation 124 ml/min; Estimated Glomerular Filt Rate > 60; Glucose 147 mg/dL (65-110); Sodium 129 mmol/L (137-145)
[2020-11-25 08:27] LABS: Glucose Point of Care 159 mg/dl (65-105)
[2020-11-25] MEDS: polyethylene glycoL 3350 17 GM POWD.PACK PO (09:39)
[2020-11-25] MEDS: VENLAFAXINE HCL XR 75 MG CAP.ER.24H 150 MG PO (09:39)
[2020-11-25] MEDS: SOTALOL HCL 80 MG TABLET PO ×3 (09:39→18:10)
[2020-11-25] MEDS: PANTOPRAZOLE 40 MG TABLET PO (09:39)
[2020-11-25] MEDS: OLANZapine 2.5 MG TABLET PO (09:39)
[2020-11-25] MEDS: MAGNESIUM OXIDE 400 MG TABLET PO (09:40)
[2020-11-25] MEDS: CHOLECALCIFEROL 1,000 UNITS TABLET 2000 UNITS PO (09:40)
[2020-11-25] MEDS: busPIRone HCL 5 MG TABLET PO ×3 (09:40→18:09)
[2020-11-25] MEDS: SENNA/DOCUSATE SODIUM TABLET 2 TAB PO ×2 (09:40→18:09)
[2020-11-25] MEDS: lisinopriL 2.5 MG TABLET PO (09:40)
[2020-11-25] MEDS: CARBIDOPA/LEVODOPA 25/100 MG TABLET 1 TABLET PO ×4 (09:40→20:21)
[2020-11-25] MEDS: APIXABAN 2.5 MG TABLET PO ×2 (09:40→20:21)
--- NOTE | 2020-11-25 12:17 | PM.IMPN ---
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 Hold diuretics Fluids to NS TSH and Cortisol WNL FEU pending 11/25 Na 127 in AM, 130 at 1 PM after fluid changes, 11/25 129 (2) Hip fracture, left: Qualifiers: Encounter type: sequela Fracture type: closed Qualified Code(s): S72.002S - Fracture of unspecified part of neck of left femur, sequela Code(s): S72.002A - Fracture of unspecified part of neck of left femur, initial encounter for closed fracture Status: Acute Assessment and Plan: POD #2 BPHA (3) Pneumonia: Qualifiers: Laterality: left Lung location: lower lobe of lung Pneumonia type: due to unspecified organism Qualified Code(s): J18.9 - Pneumonia, unspecified organism Code(s): J18.9 - Pneumonia, unspecified organism Status: Acute Assessment and Plan: Completed course of antibx Clinically resolved (4) DM2 (diabetes mellitus, type 2): Qualifiers: Diabetes mellitus complication status: without complication Diabetes mellitus intermodal customer service insulin use: with intermodal customer service use Qualified Code(s): E11.9 - Type 2 diabetes mellitus without complications; Z79.4 - 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 manager (current) use of insulin Code(s): E11.9 - Type 2 diabetes mellitus without complications Status: Chronic Assessment and Plan: 11/24 FBS 211 Continue basal and SSI (5) Dysphagia: Qualifiers: Dysphagia type: unspecified Qualified Code(s): R13.10 - Dysphagia, unspecified Code(s): R13.10 - Dysphagia, unspecified Status: Acute Assessment and Plan: Did well with second swallow eval Tolerating diet (6) Parkinsons: Code(s): G20 - Parkinson's disease Status: Acute Assessment and Plan: Continue home regimen (7) Asthma: Qualifiers: Asthma complication type: unspecified Asthma persistence: unspecified Asthma severity: unspecified severity Qualified Code(s): J45.909 - Unspecified asthma, uncomplicated Code(s): J45.909 - Unspecified asthma, uncomplicated Status: Chronic Assessment and Plan: Stable (8) HTN (hypertension): Qualifiers: Hypertension type: unspecified Qualified Code(s): I10 - Essential (primary) hypertension Code(s): I10 - Essential (primary) hypertension Status: Chronic Assessment and Plan: 11/24 BP reviewed and stable (9) Osteoarthritis of knees, bilateral: Code(s): M17.0 - Bilateral primary osteoarthritis of knee Status: Acute Assessment and Plan: Schedule acetaminophen 1000mg PO TID. D/w Dr. Schmidt that he is a poor candidate for knee replacement Subjective Date/time seen: 11/25/20 12:17 Interval history: 11/25: C/o right knee pain. Worse with movement. Not tender. Bowels moved 11/24 PM. Tolerated diet. No cp or sob or swelling. Review of Systems Review of Systems: All systems reviewed & are unremarkable except as noted in HPI and below Exam Narrative: HEENT: PERRL, sclerae nonicteric, pharyngeal mucosa pink and intact NECK: No JVD CHEST: Scattered bibasilar crackles. Normal effort. HEART: NL S1/S2, regular, no murmur ABDOMEN: BS+, soft, nontender, no mass, no bruits EXTREMITIES: No cyanosis, edema, or clubbing NEUROLOGIC: CN intact and symmetric to inspection. MUSCULOSKELETAL: Tone and strength symmetric. RIGHT KNEE W/O EFFUSION, REDNESS, TENDERNESS; POSITIVE CREPS ON ROM PSYCH: Alert. Oriented to person, place, and time (including year and month). Objective Data Vital Signs Vital Signs: Vital Signs - 24 hr 11/24/20 13:54 11/24/20 16:00 11/24/20 17:35 Temperature 97.9 F Pulse Rate 98 89 89 Respiratory Rate 16 Blood Pressure 120/71 Pulse Oximetry 97 11/24/20 20:00 11/24/20 21:17 11/24/20 21:20 Temperature Pulse Rate 81 85 64 Respirat
[2020-11-25 12:29] LABS: Glucose Point of Care 274 mg/dl (65-105)
[2020-11-25] MEDS: INSULIN ASPART (*BKC) 100 UNITS/ML SUB-Q ×2 (12:29→18:09)
--- NOTE | 2020-11-25 12:36 | PM.PNORT ---
Progress Note: A&P Additional Plan Postop day 2. After left bipolar hemiarthroplasty for displaced left femoral neck fracture. Patient is afebrile with vital signs stable. Hemoglobin is 12.6 which is expected drop with acute blood loss anemia due to hip fracture surgery. Creatinine 0.5. Diabetes being managed. Left hip wound is dry dressing intact. He has intact sensorimotor function left foot. His main complaint is that his left knee bothers him with weight-bearing. He has been walking in the room some. I have offered him a cortisone shot previously during this hospitalization for his left knee and I did again today but he declines. For now he would like to just use the pain medications to control his arthritic knee pain. He mentioned that it was is right knee hurting him to Dr. Irizarry but on questioning he states that he was mistaken that it is his left knee that is hurting him. Subjective Subjective Date/Time Seen: 11/25/20 12:36 Objective Data Vital Signs Vital Signs: Vital Signs - 24 hr 11/24/20 13:54 11/24/20 16:00 11/24/20 17:35 Temperature 36.6 C Pulse Rate 98 89 89 Respiratory Rate 16 Blood Pressure 120/71 Pulse Oximetry 97 11/24/20 20:00 11/24/20 21:17 11/24/20 21:20 Temperature Pulse Rate 81 85 64 Respiratory Rate 20 16 Blood Pressure Pulse Oximetry 11/25/20 00:00 11/25/20 01:00 11/25/20 01:53 Temperature 37.2 C Pulse Rate 76 79 Respiratory Rate 18 Blood Pressure 99/44 L 102/54 L Pulse Oximetry 99 11/25/20 02:31 11/25/20 04:00 11/25/20 05:04 Temperature 37.8 C H Pulse Rate 87 79 78 Respiratory Rate 20 18 Blood Pressure 146/73 H Pulse Oximetry 95 11/25/20 08:00 11/25/20 09:39 11/25/20 12:28 Temperature Pulse Rate 84 78 78 Respiratory Rate Blood Pressure Pulse Oximetry Intake/Output Intake/Output: Intake & Output 11/22/20 11/23/20 11/24/20 11/25/20 23:59 23:59 23:59 23:59 Intake Total 3290 3560 4580 500 Output Total 1999 1800 2775 1700 Balance 1290 1760 1805 -1200 Meds/Results Medications: Active Medications Generic Name Dose Route Start Last Admin Trade Name Freq PRN Reason Stop Dose Admin Acetaminophen 1,000 mg 11/25/20 12:35 Acetaminophen 500 Mg Tablet PO TID AGNIESZKA Albuterol 4 puff 11/15/20 20:00 11/25/20 10:11 Albuterol Sulfate (*Sp) Aerosol 1 Puff INHALATION 4 puff Q6HRT AGNIESZKA Administration Apixaban 2.5 mg 11/24/20 09:00 11/25/20 09:40 Apixaban 2.5 Mg Tablet PO 12/29/20 09:01 2.5 mg Q12HR AGNIESZKA Administration Buspirone HCl 5 mg 11/15/20 17:00 11/25/20 12:28 Buspirone Hcl 5 Mg Tablet PO 5 mg TID AGNIESZKA Administration Carbidopa/Levodopa 1 tablet 11/15/20 21:00 11/25/20 12:28 Carbidopa/Levodopa 25/100 Mg Tablet PO 1 tablet QID AGNIESZKA Administration Cephalexin HCl 500 mg 11/24/20 06:00 11/25/20 12:29 Cephalexin 500 Mg Capsule PO 12/04/20 06:01 500 mg Q6HR AGNIESZKA Administration Dextrose 12.5 gm 11/15/20 13:34 Dextrose 50% 25 Gm/50 Ml Syringe IV PUSH PRN PRN Hypoglycemia Protocol Furosemide 40 mg 11/24/20 09:00 Furosemide 40 Mg Tablet PO DAILY AGNIESZKA Dextrose 1,000 mls @ 50 mls/hr 11/20/20 15:04 Dextrose 10% IV CONT .Q20H PRN if PN is interrupted Dextrose/Sodium Chloride 1,000 mls @ 80 mls/hr 11/24/20 08:05 11/25/20 01:54 Dextrose 5% Sodium Chloride 0.9% IV CONT 80 mls/hr .[id number] AGNIESZKA Administration Insulin Aspart 3 - 6 units 11/15/20 17:00 11/25/20 12:29 Insulin Aspart (*Bkc) 100 Units/Ml SUB-Q 4 units TIDWM AGNIESZKA Administration Protocol Insulin Glargine 20 units 11/16/20 21:00 11/24/20 22:30 Insulin Glargine (*Bkc) 100 Units/Ml SUB-Q 20 units HS AGNIESZKA Administration Lisinopril 2.5 mg 11/16/20 09:00 11/25/20 09:40 Lisinopril 2.5 Mg Tablet PO 2.5 mg DAILY AGNIESZKA Administration Magnesium Oxide 400 mg 11/16/20 09:00 11/25/20 09:40 Magnesium Oxide 400 Mg Table
[2020-11-25] MEDS: ACETAMINOPHEN 500 MG TABLET 1000 MG PO ×2 (13:01→18:09)
[2020-11-25 16:28] LABS: Creatinine Urine 55.6 mg/dL
[2020-11-25 16:54] LABS: Glucose Point of Care 225 mg/dl (65-105)
[2020-11-25] MEDS: INSULIN GLARGINE (*BKC) 100 UNITS/ML 20 UNITS SUB-Q (20:19)
[2020-11-25] MEDS: traZODone HCL 50 MG TABLET 100 MG PO (20:21)
[2020-11-25] MEDS: rOPINIRole HCL 1 MG TABLET PO (20:21)
[2020-11-25 21:53] LABS: Glucose Point of Care 202 mg/dl (65-105)
--- NOTE | 2020-11-25 22:28 | PCRCNOTE ---
Window of time for administration has passed. See next scheduled administration.
[2020-11-26] VITALS (9 sets, daily range): BP systolic 90–139; BP diastolic 46–97; PULSE 77–100; RESP 17–94; TEMP 35.6–36.4; O2SAT 93–97
[2020-11-26] MEDS: CEPHALEXIN 500 MG CAPSULE PO ×5 (00:56→23:45)
[2020-11-26] MEDS: oxyCODONE HCL (*CRX) 5 MG TAB IR PO ×4 (00:56→20:45)
[2020-11-26] MEDS: ALBUTEROL SULFATE (*SP) AEROSOL 1 PUFF 4 PUFF INHALATION ×4 (02:21→20:59)
[2020-11-26] MEDS: DEXTROSE 5%/0.9% SOD CHL 1,000 ML 80 ML IV CONT (05:12)
[2020-11-26 07:12] LABS: Hematocrit 35.2 % (42.0-52.0); Hemoglobin 11.7 g/dL (14.0-18.0); Mean Corpuscular HGB Conc 33.2 g/dl (32-36); Mean Corpuscular Volume 87.1 fl (80-100); Mean Platelet Volume 8.7 fl (7.4-10.4); Platelet Count Result 284 k/mm3 (150-375); Red Blood Count 4.04 M/mm3 (4.6-6.20); Red Cell Distribution Width 11.9 % (11.5-14.5); White Blood Count 7.8 K/mm3 (4.5-10.0)
[2020-11-26 07:23] LABS: Anion Gap 6 mmol/L (8-16); Blood Urea Nitrogen 8 mg/dL (9-20); Calcium 8.3 mg/dL (8.4-10.2); Carbon Dioxide 25 mmol/L (22-30); Chloride 100 mmol/L (98-107); Estimated CRCL calculation 124 ml/min; Estimated Glomerular Filt Rate > 60; Glucose 113 mg/dL (65-110); Sodium 131 mmol/L (137-145)
[2020-11-26 08:07] LABS: Vitamin D 25 Hydroxy 46.3 ng/mL
[2020-11-26] MEDS: INSULIN ASPART (*BKC) 100 UNITS/ML SUB-Q ×2 (09:51→12:05)
[2020-11-26] MEDS: SENNA/DOCUSATE SODIUM TABLET 2 TAB PO ×2 (09:52→18:30)
[2020-11-26] MEDS: CARBIDOPA/LEVODOPA 25/100 MG TABLET 1 TABLET PO ×4 (09:52→20:45)
[2020-11-26] MEDS: PANTOPRAZOLE 40 MG TABLET PO (09:52)
[2020-11-26] MEDS: OLANZapine 2.5 MG TABLET PO (09:52)
[2020-11-26] MEDS: busPIRone HCL 5 MG TABLET PO ×3 (09:52→18:30)
[2020-11-26] MEDS: APIXABAN 2.5 MG TABLET PO ×2 (09:52→20:45)
[2020-11-26] MEDS: CHOLECALCIFEROL 1,000 UNITS TABLET 2000 UNITS PO (09:52)
[2020-11-26] MEDS: MAGNESIUM OXIDE 400 MG TABLET PO (09:52)
[2020-11-26] MEDS: polyethylene glycoL 3350 17 GM POWD.PACK PO (09:53)
[2020-11-26] MEDS: SOTALOL HCL 80 MG TABLET PO (09:53)
[2020-11-26] MEDS: lisinopriL 2.5 MG TABLET PO (09:53)
[2020-11-26] MEDS: VENLAFAXINE HCL XR 75 MG CAP.ER.24H 150 MG PO (09:54)
[2020-11-26 10:01] LABS: Glucose Point of Care 283 mg/dl (65-105)
[2020-11-26] MEDS: ACETAMINOPHEN 500 MG TABLET 1000 MG PO ×3 (10:05→18:33)
--- NOTE | 2020-11-26 10:55 | PCNFU ---
Nutrition Follow-Up Complete: Swallowing Difficulties as related to Dysphagia as evidenced by NPO Goal: Meet estimated nutritional needs Patient has met goal. No new goal. Pt current nutrition is Minced and Moist, Level 5 with Mildly Thick liquids, Level 2. Last recorded weight is 84 kg, no new weight to report. Recommend: new weight. Bowel Motility:+BM reported 11/24 Labs Reviewed:Glu 174,Ns 133, Cr 0.5 Meds Noted:Vit D, Senokot, Miralax, Protonix, NovoLog,Lantus,Keflex, Eliquis, Buspar,Proventil Additional Notes: Nutrition follow up. Patient is tolerating current diet orders, eating 100% of meals. Diet supplements have been added of Ensure compact BID providing an additional 220 kcals and 9 gms protein. Agree with diet orders. Monitoring: Will monitor every 5 days.
[2020-11-26 11:58] LABS: Glucose Point of Care 266 mg/dl (65-105)
--- NOTE | 2020-11-26 13:16 | PM.PNORT ---
Subjective Subjective Date/Time Seen: 11/26/20 13:16POD 3 avss hgb-11.6, pain overall is well controlled, dressing is dry, pt is working with PT, SS working on placement, overall he is doing well , mild thigh swelling, no swelling LE Objective Data Vital Signs Vital Signs: Vital Signs - 24 hr 11/25/20 18:10 11/25/20 20:00 11/25/20 22:00 Temperature 36.4 C L Pulse Rate 78 78 66 Respiratory Rate 18 18 Blood Pressure 98/60 L Pulse Oximetry 95 98 11/26/20 06:00 11/26/20 09:29 11/26/20 09:53 Temperature 36.4 C L 35.6 C L Pulse Rate 77 85 100 Respiratory Rate 18 94 H Blood Pressure 138/97 H 132/76 Pulse Oximetry 97 11/26/20 12:12 Temperature 36.4 C Pulse Rate 94 Respiratory Rate 18 Blood Pressure 100/64 Pulse Oximetry 93 Intake/Output Intake/Output: Intake & Output 11/23/20 11/24/20 11/25/20 11/26/20 23:59 23:59 23:59 23:59 Intake Total 3560 4580 2360 1120 Output Total 1800 2775 1900 2000 Balance 1760 1805 460 -880 Meds/Results Medications: Active Medications Generic Name Dose Route Start Last Admin Trade Name Jwq PRN Reason Stop Dose Admin Acetaminophen 1,000 mg 11/25/20 12:35 11/26/20 13:05 Acetaminophen 500 Mg Tablet PO 1,000 mg TID AGNIESZKA Administration Albuterol 4 puff 11/15/20 20:00 11/26/20 09:26 Albuterol Sulfate (*Sp) Aerosol 1 Puff INHALATION 4 puff Q6HRT AGNIESZKA Administration Apixaban 2.5 mg 11/24/20 09:00 11/26/20 09:52 Apixaban 2.5 Mg Tablet PO 12/29/20 09:01 2.5 mg Q12HR AGNIESZKA Administration Buspirone HCl 5 mg 11/15/20 17:00 11/26/20 13:05 Buspirone Hcl 5 Mg Tablet PO 5 mg TID AGNIESZKA Administration Carbidopa/Levodopa 1 tablet 11/15/20 21:00 11/26/20 13:05 Carbidopa/Levodopa 25/100 Mg Tablet PO 1 tablet QID AGNIESZKA Administration Cephalexin HCl 500 mg 11/24/20 06:00 11/26/20 12:05 Cephalexin 500 Mg Capsule PO 12/04/20 06:01 500 mg Q6HR AGNIESZKA Administration Dextrose 12.5 gm 11/15/20 13:34 Dextrose 50% 25 Gm/50 Ml Syringe IV PUSH PRN PRN Hypoglycemia Protocol Furosemide 40 mg 11/24/20 09:00 Furosemide 40 Mg Tablet PO DAILY AGNIESZKA Dextrose 1,000 mls @ 50 mls/hr 11/20/20 15:04 Dextrose 10% IV CONT .Q20H PRN if PN is interrupted Insulin Aspart 3 - 6 units 11/15/20 17:00 11/26/20 12:05 Insulin Aspart (*Bkc) 100 Units/Ml SUB-Q 4 units TIDWM AGNIESZKA Administration Protocol Insulin Glargine 20 units 11/16/20 21:00 11/25/20 20:19 Insulin Glargine (*Bkc) 100 Units/Ml SUB-Q 20 units HS AGNIESZKA Administration Lisinopril 2.5 mg 11/16/20 09:00 11/26/20 09:53 Lisinopril 2.5 Mg Tablet PO 2.5 mg DAILY AGNIESZKA Administration Magnesium Oxide 400 mg 11/16/20 09:00 11/26/20 09:52 Magnesium Oxide 400 Mg Tablet PO 400 mg DAILY AGNIESZKA Administration Morphine Sulfate 2 mg 11/23/20 16:59 11/24/20 09:55 Morphine Sulfate (*Crx) 2 Mg/Ml Inj IV PUSH 2 mg Q1H PRN Administration Pain Rated 7-10 Naloxone HCl 0.1 mg 11/23/20 16:59 Naloxone Hcl 0.4 Mg/Ml Vial IV PUSH Q2M PRN Opiate Reversal Olanzapine 2.5 mg 11/16/20 09:00 11/26/20 09:52 Olanzapine 2.5 Mg Tablet PO 2.5 mg DAILY AGNIESZKA Administration Oxycodone HCl 5 mg 11/23/20 16:59 11/26/20 10:06 Oxycodone Hcl (*Crx) 5 Mg Tab Ir PO 5 mg Q4H PRN Administration Pain RATED 4-6 Pantoprazole Sodium 40 mg 11/16/20 09:00 11/26/20 09:52 Pantoprazole 40 Mg Tablet PO 12/16/20 09:01 40 mg DAILY AGNIESZKA Administration Polyethylene Glycol 17 gm 11/24/20 09:00 11/26/20 09:53 Polyethylene Glycol 3350 17 Gm Powd.Pack PO 17 gm QAM AGNIESZKA Administration Ropinirole HCl 1 mg 11/15/20 21:00 11/25/20 20:21 Ropinirole Hcl 1 Mg Tablet PO 1 mg HS AGNIESZKA Administration Senna/Docusate Sodium 2 tab 11/23/20 17:00 11/26/20 09:52 Senna/Docusate Sodium Tablet PO 2 tab BID AGNIESZKA Administration Sotalol HCl 80 mg 11/15/20 18:20 11/26/20 09:53 Sotalol
--- NOTE | 2020-11-26 14:08 | PM.IMPN ---
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 Hold diuretics Fluids to NS TSH and Cortisol WNL FEU = 42.2% (over 35%) => NOT dry, likely due to perioperative SIADH 11/25 Na 127 in AM, 130 at 1 PM after fluid changes, 11/25 129 11/26 Na 131 Avoid hypotonic fluids, restrict PO intact if Na declines (2) Hip fracture, left: Qualifiers: Encounter type: sequela Fracture type: closed Qualified Code(s): S72.002S - Fracture of unspecified part of neck of left femur, sequela Code(s): S72.002A - Fracture of unspecified part of neck of left femur, initial encounter for closed fracture Status: Acute Assessment and Plan: POD #3 BPHA (3) Pneumonia: Qualifiers: Pneumonia type: due to unspecified organism Laterality: left Lung location: lower lobe of lung Qualified Code(s): J18.9 - Pneumonia, unspecified organism Code(s): J18.9 - Pneumonia, unspecified organism Status: Acute Assessment and Plan: Completed course of antibx Clinically resolved (4) DM2 (diabetes mellitus, type 2): 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 Diabetes mellitus complication status: without complication Qualified Code(s): E11.9 - Type 2 diabetes mellitus without complications; Z79.4 - long term care administrator (current) use of insulin Code(s): E11.9 - Type 2 diabetes mellitus without complications Status: Chronic Assessment and Plan: 11/24 FBS 211, 11/26 113 Continue basal and SSI (5) Dysphagia: Qualifiers: Dysphagia type: unspecified Qualified Code(s): R13.10 - Dysphagia, unspecified Code(s): R13.10 - Dysphagia, unspecified Status: Acute Assessment and Plan: Did well with second swallow eval Tolerating diet (6) Parkinsons: Code(s): G20 - Parkinson's disease Status: Acute Assessment and Plan: Continue home regimen (7) Asthma: Qualifiers: Asthma severity: unspecified severity Asthma persistence: unspecified Asthma complication type: unspecified Qualified Code(s): J45.909 - Unspecified asthma, uncomplicated Code(s): J45.909 - Unspecified asthma, uncomplicated Status: Chronic Assessment and Plan: Stable (8) HTN (hypertension): Qualifiers: Hypertension type: unspecified Qualified Code(s): I10 - Essential (primary) hypertension Code(s): I10 - Essential (primary) hypertension Status: Chronic Assessment and Plan: 11/26 BP reviewed and stable (9) Osteoarthritis of knees, bilateral: Code(s): M17.0 - Bilateral primary osteoarthritis of knee Status: Acute Assessment and Plan: 11/25 Scheduled acetaminophen 1000mg PO TID. Subjective Date/time seen: 11/26/20 14:08 Interval history: 11/26: C/o right knee pain. Worse with movement. Not tender. Bowels moved 11/24 PM. Tolerated diet. No cp or sob or swelling. Review of Systems Review of Systems: All systems reviewed & are unremarkable except as noted in HPI and below Exam Narrative: HEENT: PERRL, sclerae nonicteric, pharyngeal mucosa pink and intact NECK: No JVD CHEST: Scattered bibasilar crackles. Normal effort. HEART: NL S1/S2, regular, no murmur ABDOMEN: BS+, soft, nontender, no mass, no bruits EXTREMITIES: No cyanosis, edema, or clubbing NEUROLOGIC: CN intact and symmetric to inspection. MUSCULOSKELETAL: Tone and strength symmetric. RIGHT KNEE W/O EFFUSION, REDNESS, TENDERNESS; POSITIVE CREPS ON ROM PSYCH: Alert. Oriented to person, place, and time (including year and month). Objective Data Vital Signs Vital Signs: Vital Signs - 24 hr 11/25/20 18:10 11/25/20 20:00 11/25/20 22:00 Temperature 97.5 F L Pulse Rate 78 78 66 Respiratory Rate 18 18 Blood Pressure 98/60 L Pulse Oximetry 95 98 11/26
[2020-11-26] MEDS: SODIUM CHLORIDE 0.9% IV 1,000 ML 100 ML IV CONT ×2 (14:51→23:46)
[2020-11-26 17:44] LABS: Glucose Point of Care 139 mg/dl (65-105)
[2020-11-26] MEDS: traZODone HCL 50 MG TABLET 100 MG PO (20:45)
[2020-11-26] MEDS: rOPINIRole HCL 1 MG TABLET PO (20:45)
[2020-11-26] MEDS: INSULIN GLARGINE (*BKC) 100 UNITS/ML 20 UNITS SUB-Q (20:49)
[2020-11-26 21:14] LABS: Glucose Point of Care 214 mg/dl (65-105)
[2020-11-27] MEDS: oxyCODONE HCL (*CRX) 5 MG TAB IR PO (01:24)
[2020-11-27] MEDS: ALBUTEROL SULFATE (*SP) AEROSOL 1 PUFF 4 PUFF INHALATION ×2 (02:50→09:42)
[2020-11-27 05:15] VITALS: BP 123/69; PULSE 87; RESP 18; TEMP 36.9; O2SAT 96
[2020-11-27] MEDS: CEPHALEXIN 500 MG CAPSULE PO ×2 (05:48→12:22)
[2020-11-27 06:44] LABS: Hematocrit 33.5 % (42.0-52.0); Hemoglobin 11.3 g/dL (14.0-18.0); Mean Corpuscular HGB Conc 33.7 g/dl (32-36); Mean Corpuscular Hemoglobin 29.4 pg (26-34); Mean Corpuscular Volume 87.2 fl (80-100); Mean Platelet Volume 8.3 fl (7.4-10.4); Platelet Count Result 291 k/mm3 (150-375); Red Blood Count 3.84 M/mm3 (4.6-6.20); Red Cell Distribution Width 11.9 % (11.5-14.5); White Blood Count 6.8 K/mm3 (4.5-10.0)
--- NOTE | 2020-11-27 06:52 | PM.PNORT ---
Subjective Subjective Date/Time Seen: 11/27/20 06:52POD 4 avss hgb-stable, wd-dry pain is well controlled, working on rehab placement, will cont to follow Objective Data Vital Signs Vital Signs: Vital Signs - 24 hr 11/26/20 09:29 11/26/20 09:53 11/26/20 12:12 Temperature 35.6 C L 36.4 C Pulse Rate 85 100 94 Respiratory Rate 94 H 18 Blood Pressure 132/76 100/64 Pulse Oximetry 93 11/26/20 14:31 11/26/20 14:54 11/26/20 17:00 Temperature 36.4 C L Pulse Rate 80 80 81 Respiratory Rate 20 Blood Pressure 90/52 L 90/46 L Pulse Oximetry 95 94 11/26/20 20:00 11/26/20 20:53 11/27/20 05:15 Temperature 36.4 C 36.9 C Pulse Rate 81 81 87 Respiratory Rate 17 17 18 Blood Pressure 139/82 123/69 Pulse Oximetry 96 96 96 Intake/Output Intake/Output: Intake & Output 11/24/20 11/25/20 11/26/20 11/27/20 23:59 23:59 23:59 23:59 Intake Total 4580 2360 3060 150 Output Total 2775 1900 3200 1100 Balance 1805 460 140 950 Meds/Results Medications: Active Medications Generic Name Dose Route Start Last Admin Trade Name Freq PRN Reason Stop Dose Admin Acetaminophen 1,000 mg 11/25/20 12:35 11/26/20 18:33 Acetaminophen 500 Mg Tablet PO 1,000 mg TID AGNIESZKA Administration Albuterol 4 puff 11/15/20 20:00 11/27/20 02:50 Albuterol Sulfate (*Sp) Aerosol 1 Puff INHALATION 4 puff Q6HRT AGNIESZKA Administration Apixaban 2.5 mg 11/24/20 09:00 11/26/20 20:45 Apixaban 2.5 Mg Tablet PO 12/29/20 09:01 2.5 mg Q12HR AGNIESZKA Administration Buspirone HCl 5 mg 11/15/20 17:00 11/26/20 18:30 Buspirone Hcl 5 Mg Tablet PO 5 mg TID AGNIESZKA Administration Carbidopa/Levodopa 1 tablet 11/15/20 21:00 11/26/20 20:45 Carbidopa/Levodopa 25/100 Mg Tablet PO 1 tablet QID AGNIESZKA Administration Cephalexin HCl 500 mg 11/24/20 06:00 11/27/20 05:48 Cephalexin 500 Mg Capsule PO 12/04/20 06:01 500 mg Q6HR AGNIESZKA Administration Dextrose 12.5 gm 11/15/20 13:34 Dextrose 50% 25 Gm/50 Ml Syringe IV PUSH PRN PRN Hypoglycemia Protocol Furosemide 40 mg 11/24/20 09:00 Furosemide 40 Mg Tablet PO DAILY AGNIESZKA Dextrose 1,000 mls @ 50 mls/hr 11/20/20 15:04 Dextrose 10% IV CONT .Q20H PRN if PN is interrupted Sodium Chloride 1,000 mls @ 100 mls/hr 11/26/20 14:45 11/26/20 23:46 Normal Saline Iv IV CONT 100 mls/hr .Q10H AGNIESZKA Administration Insulin Aspart 3 - 6 units 11/15/20 17:00 11/26/20 18:31 Insulin Aspart (*Bkc) 100 Units/Ml SUB-Q Not Given TIDWM [facility] Protocol Insulin Glargine 20 units 11/16/20 21:00 11/26/20 20:49 Insulin Glargine (*Bkc) 100 Units/Ml SUB-Q 20 units HS AGNIESZKA Administration Lisinopril 2.5 mg 11/16/20 09:00 11/26/20 09:53 Lisinopril 2.5 Mg Tablet PO 2.5 mg DAILY AGNIESZKA Administration Magnesium Oxide 400 mg 11/16/20 09:00 11/26/20 09:52 Magnesium Oxide 400 Mg Tablet PO 400 mg DAILY AGNIESZKA Administration Morphine Sulfate 2 mg 11/23/20 16:59 11/24/20 09:55 Morphine Sulfate (*Crx) 2 Mg/Ml Inj IV PUSH 2 mg Q1H PRN Administration Pain Rated 7-10 Naloxone HCl 0.1 mg 11/23/20 16:59 Naloxone Hcl 0.4 Mg/Ml Vial IV PUSH Q2M PRN Opiate Reversal Olanzapine 2.5 mg 11/16/20 09:00 11/26/20 09:52 Olanzapine 2.5 Mg Tablet PO 2.5 mg DAILY AGNIESZKA Administration Oxycodone HCl 5 mg 11/23/20 16:59 11/27/20 01:24 Oxycodone Hcl (*Crx) 5 Mg Tab Ir PO 5 mg Q4H PRN Administration Pain RATED 4-6 Pantoprazole Sodium 40 mg 11/16/20 09:00 11/26/20 09:52 Pantoprazole 40 Mg Tablet PO 12/16/20 09:01 40 mg DAILY AGNIESZKA Administration Polyethylene Glycol 17 gm 11/24/20 09:00 11/26/20 09:53 Polyethylene Glycol 3350 17 Gm Powd.Pack PO 17 gm QAM AGNIESZKA Administration Ropinirole HCl 1 mg 11/15/20 21:00 11/26/20 20:45 Ropinirole Hcl 1 Mg Tablet PO 1 mg HS AGNIESZKA Administration Senna/Docusate Sodium 2 tab 11/23/20 17:00 11/26/20 18:30 Senna/Docusa
[2020-11-27 07:44] LABS: Anion Gap 5 mmol/L (8-16); Blood Urea Nitrogen 8 mg/dL (9-20); Calcium 8.2 mg/dL (8.4-10.2); Carbon Dioxide 27 mmol/L (22-30); Chloride 104 mmol/L (98-107); Estimated CRCL calculation 124 ml/min; Estimated Glomerular Filt Rate > 60; Glucose 90 mg/dL (65-110); Potassium 3.8 mmol/L (3.4-5.0); Sodium 136 mmol/L (137-145)
[2020-11-27] MEDS: ACETAMINOPHEN 500 MG TABLET 1000 MG PO ×2 (08:19→12:26)
[2020-11-27 08:20] VITALS: PULSE 88
[2020-11-27] MEDS: SOTALOL HCL 80 MG TABLET PO ×2 (08:20→12:22)
[2020-11-27] MEDS: OLANZapine 2.5 MG TABLET PO (08:20)
[2020-11-27] MEDS: CARBIDOPA/LEVODOPA 25/100 MG TABLET 1 TABLET PO ×2 (08:20→12:22)
[2020-11-27] MEDS: CHOLECALCIFEROL 1,000 UNITS TABLET 2000 UNITS PO (08:21)
[2020-11-27] MEDS: polyethylene glycoL 3350 17 GM POWD.PACK PO (08:22)
[2020-11-27] MEDS: MAGNESIUM OXIDE 400 MG TABLET PO (08:22)
[2020-11-27] MEDS: SENNA/DOCUSATE SODIUM TABLET 2 TAB PO (08:22)
[2020-11-27] MEDS: APIXABAN 2.5 MG TABLET PO (08:22)
[2020-11-27] MEDS: PANTOPRAZOLE 40 MG TABLET PO (08:22)
[2020-11-27] MEDS: busPIRone HCL 5 MG TABLET PO ×2 (08:22→12:22)
[2020-11-27] MEDS: VENLAFAXINE HCL XR 75 MG CAP.ER.24H 150 MG PO (08:23)
[2020-11-27 08:31] LABS: Glucose Point of Care 83 mg/dl (65-105)
--- NOTE | 2020-11-27 09:52 | PM.DS ---
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 Hold diuretics Fluids to NS TSH and Cortisol WNL FEU = 42.2% (over 35%) => NOT dry, likely due to perioperative SIADH 11/25 Na 127 in AM, 130 at 1 PM after fluid changes, 11/25 129 11/26 Na 131 11/27 Na 132 Avoid hypotonic fluids, restrict PO intact if Na declines (2) Hip fracture, left: Qualifiers: Encounter type: sequela Fracture type: closed Qualified Code(s): S72.002S - Fracture of unspecified part of neck of left femur, sequela Code(s): S72.002A - Fracture of unspecified part of neck of left femur, initial encounter for closed fracture Status: Acute Assessment and Plan: POD #4 BPHA (3) Pneumonia: Qualifiers: Laterality: left Lung location: lower lobe of lung Pneumonia type: due to unspecified organism Qualified Code(s): J18.9 - Pneumonia, unspecified organism Code(s): J18.9 - Pneumonia, unspecified organism Status: Acute Assessment and Plan: Completed course of antibx Clinically resolved (4) DM2 (diabetes mellitus, type 2): Qualifiers: Diabetes mellitus complication status: without complication 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 Qualified Code(s): E11.9 - Type 2 diabetes mellitus without complications; Z79.4 - exterminator termite (current) use of insulin Code(s): E11.9 - Type 2 diabetes mellitus without complications Status: Chronic Assessment and Plan: 11/24 FBS 211, 11/26 113, 11/27 90 Continue basal and SSI (5) Dysphagia: Qualifiers: Dysphagia type: unspecified Qualified Code(s): R13.10 - Dysphagia, unspecified Code(s): R13.10 - Dysphagia, unspecified Status: Acute Assessment and Plan: Did well with second swallow eval Tolerating diet (6) Parkinsons: Code(s): G20 - Parkinson's disease Status: Acute Assessment and Plan: Continue home regimen (7) Asthma: Qualifiers: Asthma complication type: unspecified Asthma persistence: unspecified Asthma severity: unspecified severity Qualified Code(s): J45.909 - Unspecified asthma, uncomplicated Code(s): J45.909 - Unspecified asthma, uncomplicated Status: Chronic Assessment and Plan: Stable (8) HTN (hypertension): Qualifiers: Hypertension type: unspecified Qualified Code(s): I10 - Essential (primary) hypertension Code(s): I10 - Essential (primary) hypertension Status: Chronic Assessment and Plan: 11/26 BP reviewed and stable (9) Osteoarthritis of knees, bilateral: Code(s): M17.0 - Bilateral primary osteoarthritis of knee Status: Acute Assessment and Plan: 11/25 Scheduled acetaminophen 1000mg PO TID. DS: Summary Hospital Course Reason for hospitalization: Pneumonia Hospital Course: General was admitted to the emergency department after a fall. Chest x-ray revealed pulmonary infiltrate. X-rays were negative at that time for fracture. He had a 2nd fall during hospitalization during treatment with IV Levaquin. X-rays at that time revealed impacted left subcapital hip fracture. Four days prior to discharge she underwent a left total hip arthroplasty and tolerated well. He had perioperative hyponatremia that was corrected with free water restriction and sodium replacement. He was tolerating his diet and therapy. He did poorly on swallowing evaluation while acutely ill. However he improved and did better after treatment of his pneumonia. He was tolerating his diet. See below for details. Time Spent with Patient Time attestation: Total time spent providing and/or coordinating discharge services: Exam Narrative: HEENT: PERRL, sclerae nonicteric, pharyngeal mucosa pink
[2020-11-27 12:08] LABS: Glucose Point of Care 264 mg/dl (65-105)
[2020-11-27 12:22] VITALS: PULSE 78
[2020-11-27] MEDS: INSULIN ASPART (*BKC) 100 UNITS/ML SUB-Q (12:26)
[2020-11-27 14:00] VITALS: BP 102/66; PULSE 79; RESP 18; TEMP 37; O2SAT 96
--- NOTE | 2020-11-27 14:29 | PC.NURSE ---
Report given to Tavo at [facility].
== END 2020-11-27 15:20 | DRG 521 ==
LOC: ANHED 08:08 → ANH3MEDSUR 13:15
PROVIDERS: Internal Medicine; Internal Medicine Gastroenterology; Orthopaedic Surgery; Admitting Provider Internal Medicine; Emergency Provider Emergency Medicine; PCP Internal Medicine; Visit Provider Family Medicine
PROC: 0DJ08ZZ Inspection of Upper Intestinal Tract, Via Natural or Artificial Opening Endoscopic (ICD-10-PCS; CPT 43235; principal; 2020-11-21 12:30)
PROC: 0SRS0JZ Replacement of Left Hip Joint, Femoral Surface with Synthetic Substitute, Open Approach (ICD-10-PCS; CPT 27125; principal; 2020-11-23 13:00)
DX: S72.092A Other fracture of head and neck of left femur, initial encounter for closed fracture (principal); J18.9 Pneumonia, unspecified organism; J69.0 Pneumonitis due to inhalation of food and vomit; E22.2 Syndrome of inappropriate secretion of antidiuretic hormone; D62 Acute posthemorrhagic anemia; G20 Parkinson's disease; Z20.822 Contact with and (suspected) exposure to COVID-19; K21.9 Gastro-esophageal reflux disease without esophagitis; K29.70 Gastritis, unspecified, without bleeding; W19.XXXA Unspecified fall, initial encounter; M17.0 Bilateral primary osteoarthritis of knee; R13.10 Dysphagia, unspecified; I25.10 Atherosclerotic heart disease of native coronary artery without angina pectoris; J45.909 Unspecified asthma, uncomplicated; F32.9 Major depressive disorder, single episode, unspecified; E78.5 Hyperlipidemia, unspecified; I10 Essential (primary) hypertension; G47.33 Obstructive sleep apnea (adult) (pediatric); E11.9 Type 2 diabetes mellitus without complications; M25.462 Effusion, left knee; I25.2 Old myocardial infarction; Z98.42 Cataract extraction status, left eye; Z98.41 Cataract extraction status, right eye; Z95.5 Presence of coronary angioplasty implant and graft; Z90.49 Acquired absence of other specified parts of digestive tract; Z87.891 Personal history of nicotine dependence; Z66 Do not resuscitate; W18.39XA Other fall on same level, initial encounter
CPT/HCPCS: 36415; 51701; 71046; 73501; 73502; 73562; 80048; 80053; 81001; 82306; 82533; 82570; 82948; 83605; 83735; 83935; 84100; 84145; 84295; 84443; 84540; 85025; 85027; 85610; 85652; 85730; 86140; 86850; 86900; 86901; 87081; 88305; 88309; 88311; 92526; 92610; 92611; 93005; 94640; 96361; 96365; 96366; 96367; 96372; 96375; 96376; 97110; 97116; 97161; 97163; 97166; 97530; 97535; 99285; A9270; C8929; C9803; G0378; J0131; J0171; J0456; J0690; J0696; J1170; J1650; J1815; J1885; J2270; J2704; J2795; J3010; J3370; J3480; J7030; J7042; J7070; J7120; Q9957; U0003; U0005

== ENCOUNTER 2021-11-22 22:13 | Emergency (ER) | payer MEDICARE, SELFPAY ==
[2021-11-22] VITALS (8 sets, daily range): BP systolic 121; BP diastolic 72–73; PULSE 74–83; RESP 15–23; TEMP 36.9; O2SAT 96–98
--- NOTE | 2021-11-22 22:29 | ED.GENADULT ---
HPI - General Adult General Chief complaint: Recheck/Abnormal Lab/Rx Stated complaint: ABN LABS Source: RN notes reviewed History of Present Illness HPI narrative: Patient presents emergency department from [facility] via EMS for abnormal lab test. Patient had lab results drawn on 20 November at that time results came back today showing the patient had glucose in his urine he was sent to the emergency department for further evaluation. Patient has no complaints laying in the room he denies any fevers or chills chest pain shortness of breath abdominal pain nausea vomiting. Patient is a known diabetic Related Data Home Medications Medication Instructions Recorded Confirmed albuterol sulfate 90 mcg/actuation 2 puff inhalation Q4H PRN 05/25/20 11/15/20 aerosol inhaler Shortness Of Breath Or Wheezing buspirone 5 mg tablet 5 mg PO TID 05/25/20 11/15/20 cholecalciferol (vitamin D3) 50 50 mcg PO DAILY 05/25/20 11/15/20 mcg (2,000 unit) capsule lisinopril 2.5 mg tablet 2.5 mg PO DAILY 05/25/20 11/15/20 metformin 1,000 mg tablet 1,000 mg PO BID 05/25/20 11/15/20 omeprazole 20 mg capsule,delayed 20 mg PO DAILY 05/25/20 11/15/20 release trazodone 100 mg tablet 100 mg PO HS 05/25/20 11/15/20 carbidopa 25 mg-levodopa 100 mg 1 tablet PO QID 09/07/20 11/15/20 tablet furosemide 40 mg tablet 40 mg PO DAILY 09/07/20 11/15/20 magnesium oxide 400 mg (241.3 mg 400 mg PO DAILY 09/07/20 11/15/20 magnesium) tablet ropinirole 1 mg tablet 1 mg PO HS 09/07/20 11/15/20 venlafaxine 150 mg 150 mg PO DAILY 09/07/20 11/15/20 capsule,extended release 24 hr insulin degludec 200 unit/mL (3 20 unit subcut 09/09/20 11/15/20 mL) subcutaneous pen (Tresiba FlexTouch U-200 insulin) Allergies Allergy/AdvReac Type Severity Reaction Status Date / Time No Known Allergies Allergy Verified 11/22/21 22:47 Review of Systems Review of Systems: Gen.: Denies fevers or chills ENT: Denies congestion Respiratory: Denies shortness of breath or cough CV: Denies chest pain or palpitations GI: Denies abdominal pain nausea, emesis or diarrhea denies burning, urgency, frequency or hematuria Musculoskeletal: Denies back pain or muscle pain Neuro: Denies numbness, tingling, weakness or focal weakness Skin: Denies rash Except as documented, all other systems reviewed and negative [facility] Past Medical History Medical History Abnormal weight loss Asthma CAD (coronary artery disease) Compression fracture of L1 lumbar vertebra Depression with suicidal ideation (~09/2020) DM2 (diabetes mellitus, type 2) Dysphagia GERD (gastroesophageal reflux disease) History of adenomatous polyp of colon HLD (hyperlipidemia) HTN (hypertension) Myocardial infarction Obstructive sleep apnea no longer wears a CPAP Osteoarthritis of knees, bilateral Parkinsons Surgical History Surgical History H/O colonoscopy with polypectomy History of cataract extraction History of coronary artery stent placement x2 Hx of cholecystectomy S/P appendectomy Family History Family History Father Emphysema lung Mother Cerebrovascular accident Sibling Acute myocardial infarction Sibling Suicide Social History Social History Social History: The patient lives at [facility]. He has a son and a daughter. The patient is retired from [employer] . He is . He is a former smoker. He does not use any marijuana or alcohol. Primary care physician: Dr. La Hermosillo Code status: Full code Surrogate decision maker: Mayo (son) Smoking packs per day: 1 Smoking cigarettes per day: 20.0 Years smoked: 10 Smoking pack-years: 10.00 Smoking status: Former smoker Additional smoking assessment comments: used to smoke occasional cigar
[2021-11-22 22:59] LABS: Basophils Percent Auto 0.5 % (0.2-1.2); Eosinophils Absolute Auto 0.2 K/mm3 (0-0.3); Eosinophils Percent Auto 3.5 % (0-4.4); Hemoglobin 11.8 g/dL (14.0-18.0); Immature Granulocyte Absolute 0.04 K/mm3 (0.00-0.031); Immature Granulocyte Percent A 0.6 % (0-0.5); Lymphocytes Absolute Auto 1.28 K/mm3 (0.9-3.2); Lymphocytes Percent Auto 19.6 % (18.3-44.2); Mean Corpuscular HGB Conc 31.9 g/dl (32-36); Mean Corpuscular Hemoglobin 28.3 pg (26-34); Mean Corpuscular Volume 88.7 fl (80-100); Mean Platelet Volume 8.2 fl (7.4-10.4); Monocytes Absolute Auto 0.6 K/mm3 (0.1-0.6); Monocytes Percent Auto 9.8 % (2.6-8.5); Neutrophils Absolute Auto 4.3 K/mm3 (1.3-6.7); Platelet Count Result 281 k/mm3 (150-375); Red Blood Count 4.17 M/mm3 (4.6-6.20); Red Cell Distribution Width 14.1 % (11.5-14.5); White Blood Count 6.5 K/mm3 (4.5-10.0)
[2021-11-22 23:12] LABS: Alanine Aminotransferase 13 U/L (6-50); Albumin Level 3.8 g/dL (3.5-5.1); Alkaline Phosphatase 91 U/L (38-126); Anion Gap 13 mmol/L (8-16); Aspartate Amino Transferase 25 U/L (17-59); Bilirubin,Total 0.2 mg/dL (0.2-1.3); Blood Urea Nitrogen 17 mg/dL (9-20); Calcium 8.7 mg/dL (8.4-10.2); Carbon Dioxide 25 mmol/L (22-30); Chloride 97 mmol/L (98-107); Estimated CRCL calculation 104 ml/min; Estimated Glomerular Filt Rate > 60; Glucose 238 mg/dL (65-110); Potassium 3.7 mmol/L (3.4-5.0); Sodium 135 mmol/L (137-145)
[2021-11-23] VITALS (29 sets, daily range): BP systolic 105–147; BP diastolic 58–84; PULSE 72–85; RESP 12–24; TEMP 36.6–36.7; O2SAT 94–99
[2021-11-23 00:06] LABS: Appearance Urine Clear (Clear); Bilirubin Urine Negative (Negative); Blood Urine Negative (Negative); Color Urine Yellow (Yellow); Glucose Urine UA 2+ mg/dL (Negative); Ketones Urine Trace mg/dL (Negative); Leukocyte Esterase Ur Negative LEU/UL (Negative); Nitrate Urine Negative (Negative); Protein Urine Negative (Negative); Urobilinogen Urine 0.2 mg/dL (<2.0)
[2021-11-23 00:12] LABS: Mucus Urine Rare /lpf; RBC Urine 0-2 /hpf (0-2); WBC Urine 0-3 /hpf
[2021-11-23 00:13] LABS: Add Urine Microscopic? YES
--- NOTE | 2021-11-23 00:47 | PC.NURSE ---
[facility] at [phone] . ETA [phone].
--- NOTE | 2021-11-23 00:53 | PC.NURSE ---
RN contacted [facility] to get information about facility provider. RN informed that Dr. 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 RN called [phone] and felt a message for Enzo. RN contacted [facility] again to be sure that [facility] takes primary call and see how difficult it is to get in contact with provider. Nurse stated that they always call Enzo and leave a message, which is returned within 30min.
== END 2021-11-23 06:35 ==
PROVIDERS: Emergency Provider Emergency Medicine; PCP Internal Medicine
DX: E11.65 Type 2 diabetes mellitus with hyperglycemia (principal); G20 Parkinson's disease; I25.10 Atherosclerotic heart disease of native coronary artery without angina pectoris; J45.909 Unspecified asthma, uncomplicated; E78.5 Hyperlipidemia, unspecified; I10 Essential (primary) hypertension; I25.2 Old myocardial infarction; G47.33 Obstructive sleep apnea (adult) (pediatric); K21.9 Gastro-esophageal reflux disease without esophagitis; M17.0 Bilateral primary osteoarthritis of knee; Z98.49 Cataract extraction status, unspecified eye; Z95.5 Presence of coronary angioplasty implant and graft; Z86.010 Personal history of colon polyps; Z87.891 Personal history of nicotine dependence; Z79.4 Long term (current) use of insulin; Z79.84 Long term (current) use of oral hypoglycemic drugs; Z79.01 Long term (current) use of anticoagulants
CPT/HCPCS: 36415; 51701; 80053; 81001; 85025; 99283

== ENCOUNTER 2022-08-09 10:23 | Inpatient (IN) | payer MEDICARE, SELFPAY ==
[2022-08-09] VITALS (11 sets, daily range): BP systolic 129–149; BP diastolic 66–98; PULSE 67–88; RESP 16–20; TEMP 36.5–36.7; O2SAT 96–100; BMI 24.5
--- NOTE | ~2022-08-09 | XR_ITS ---
MODIFIED ESOPHAGRAM HISTORY: Dysphagia. TECHNIQUE: Modified barium esophagram was performed on 08/12/2022. I administered fluoroscopy and perfo rmed the exam with speech pathologist. Patient was seated for lateral fluoroscopic imaging for inges tion of thin liquids, pudding, solids and quantified amounts, followed by thin liquids in uncontrolle d amounts. This was recorded on tape. A single fluoroscopic spot image was also recorded. The DAP for this procedure was 0.827 Gycm2. The amount of fluoroscopy time used during this procedure was 1.3 mi nutes. FINDINGS: Oral stage: Adequate function. Pharyngeal stage: Reduced laryngeal elevation and tongue base retraction. There is residue at both th e vallecula and piriform sinus. There is laryngeal penetration with silent aspiration following the s wallow. Cervical/esophageal stage: Adequate function. IMPRESSION: Laryngeal penetration and silent aspiration following the swallow. Please correlate with speech pathologist findings and specific feeding recommendations. Reviewed, dictated and finalized at location A. IMPRESSION: Laryngeal penetration and silent aspiration following the swallow. Please correlate with speech pathologist findings and specific feeding recomme ndations.
--- NOTE | ~2022-08-09 | XR_ITS ---
EXAMINATION: XR abdomen obstructive series DATE: 08/10/2022 07:55 INDICATION: Partial small bowel obstruction. TECHNIQUE: Upright and supine views of the abdomen on 3 radiographs were obtained. COMPARISON: Abdomen radiograph 08/09/2022 FINDINGS: There are no dilated loops of bowel. Surgical clips in the right upper quadrant are likely from cholecystectomy. No free intraperitoneal gas. There is a bipolar left hip hemiarthroplasty. Agai n seen is mild elevation of left hemidiaphragm with mild atelectasis at left lung base. IMPRESSION: 1. Nonobstructive bowel gas pattern. Reviewed, dictated and finalized at location A.
--- NOTE | ~2022-08-09 | CT_ITS ---
EXAMINATION: CT abdomen pelvis w con DATE: 08/09/2022 13:08 INDICATION: Bowel obstruction. TECHNIQUE: Computed tomography (CT) of the abdomen and pelvis was performed with 100 mL Omnipaque 350 intravenous contrast. Automated exposure control and iterative reconstruction technique were employe d. The dose-length product was 1176.13 mGy-cm. COMPARISON: CT abdomen and pelvis 09/07/2020 FINDINGS: The visualized portions of the lung bases demonstrate mild atelectasis. There is mild eleva tion of left hemidiaphragm. Calcified left lung nodules and calcified left hilar lymph nodes are cons istent with old granulomatous disease. No pleural effusion. The heart size is normal. There are coron tonie artery calcifications. No pericardial effusion. There is ectasia of ascending aorta measuring 4.5 cm. There is mild bilateral gynecomastia. The liver is normal. Calcifications in the spleen are cons istent with old granulomatous disease. There are changes of cholecystectomy. The pancreas, adrenal gl ands, and kidneys are normal. The bladder is distended. The appendix is not visualized. There are dil ated loops of small bowel without focal transition point. There are no pathologically enlarged lymph nodes. There is no free intraperitoneal fluid. There is a bipolar left hip hemiarthroplasty. There is severe lumbar spondylosis. There is a chronic compression fracture of L1. IMPRESSION: 1. Dilated small bowel without focal transition point, consistent with adynamic ileus versus partial small bowel obstruction. Reviewed, dictated and finalized at location A.
--- NOTE | ~2022-08-09 | XR_ITS ---
EXAMINATION: XR chest 2V DATE: 08/09/2022 12:05 INDICATION: Altered mental status. Weakness. TECHNIQUE: Frontal and lateral views of the chest were obtained on 3 radiographs. COMPARISON: Chest 2 views 11/15/2020 FINDINGS: There is chronic mild elevation of left hemidiaphragm. There is mild atelectasis at left scar ng base. No pleural effusion or pneumothorax. The heart size is normal. There is dilated small bowel. There are changes of anterior fusion procedure in cervical spine. IMPRESSION: 1. Chronic mild elevation of left hemidiaphragm with mild atelectasis at left lung base. 2. Dilated small bowel, consistent with adynamic ileus versus small bowel obstruction. Reviewed, dictated and finalized at location A. IMPRESSION: 1. Chronic mild elevation of left hemidiaphragm with mild atelectasis at left l horacio base. 2. Dilated small bowel, consistent with adynamic ileus versus small bowel obstr uction.
--- NOTE | ~2022-08-09 | XR_ITS ---
EXAMINATION: XR hip LT 2V w AP pelvis DATE: 08/09/2022 12:05 INDICATION: Left hip pain. TECHNIQUE: An anteroposterior view of the pelvis and 2 views of left hip were obtained. COMPARISON: Pelvis and left hip radiographs 11/23/2020 FINDINGS: There is a bipolar left hip hemiarthroplasty in near-anatomic alignment. No fracture. No pe riprosthetic lucency to suggest loosening or infection. There is mild right hip osteoarthritis. IMPRESSION: 1. Bipolar left hip hemiarthroplasty in near-anatomic alignment. 2. Mild right hip osteoarthritis. Reviewed, dictated and finalized at location A.
--- NOTE | ~2022-08-09 | XR_ITS ---
EXAMINATION: XR abdomen NG/feed tube insert DATE: 08/09/2022 15:40 INDICATION: Nasogastric tube placement. TECHNIQUE: An upright view of the abdomen was obtained. COMPARISON: CT abdomen and pelvis 08/09/2022 FINDINGS: The lower abdomen is excluded. There are dilated loops of small bowel. Surgical clips in th e right upper quadrant are likely from cholecystectomy. The nasogastric tube tip is in the stomach. IMPRESSION: 1. Nasogastric tube tip in the stomach. 2. Dilated small bowel, consistent with adynamic ileus versus partial small bowel obstruction. Reviewed, dictated and finalized at location A. IMPRESSION: 1. Nasogastric tube tip in the stomach. 2. Dilated small bowel, consistent with adynamic ileus versus partial small bow el obstruction.
[2022-08-09] MEDS: SODIUM CHLORIDE 0.9% IV 1,000 ML 999 ML IV CONT (11:16)
[2022-08-09 11:34] LABS: Basophils Percent Auto 0.5 % (0.2-1.2); Eosinophils Absolute Auto 0.1 K/mm3 (0-0.3); Eosinophils Percent Auto 1.8 % (0-4.4); Hemoglobin 12.3 g/dL (14.0-18.0); Immature Granulocyte Absolute 0.05 K/mm3 (0.00-0.031); Immature Granulocyte Percent A 0.6 % (0-0.5); Lymphocytes Absolute Auto 1.27 K/mm3 (0.9-3.2); Lymphocytes Percent Auto 16.4 % (18.3-44.2); Mean Corpuscular HGB Conc 32.4 g/dl (32-36); Mean Corpuscular Hemoglobin 28.9 pg (26-34); Mean Corpuscular Volume 89.4 fl (80-100); Mean Platelet Volume 8.3 fl (7.4-10.4); Monocytes Absolute Auto 0.6 K/mm3 (0.1-0.6); Monocytes Percent Auto 7.9 % (2.6-8.5); Neutrophils Absolute Auto 5.6 K/mm3 (1.3-6.7); Neutrophils Percent Auto 72.8 % (45.5-73.1); Platelet Count Result 302 k/mm3 (150-375); Red Blood Count 4.25 M/mm3 (4.6-6.20); Red Cell Distribution Width 13.7 % (11.5-14.5); White Blood Count 7.8 K/mm3 (4.5-10.0)
[2022-08-09 11:51] LABS: Sodium 136 mmol/L (137-145)
[2022-08-09 11:58] LABS: Alanine Aminotransferase 10 U/L (6-50); Albumin Level 4.1 g/dL (3.5-5.1); Alkaline Phosphatase 67 U/L (38-126); Anion Gap 9 mmol/L (8-16); Aspartate Amino Transferase 21 U/L (17-59); Bilirubin,Total 0.5 mg/dL (0.2-1.3); Blood Urea Nitrogen 17 mg/dL (9-20); Calcium 8.8 mg/dL (8.4-10.2); Carbon Dioxide 26 mmol/L (22-30); Chloride 101 mmol/L (98-107); Estimated CRCL calculation 86 ml/min; Estimated Glomerular Filt Rate > 60; Glucose 102 mg/dL (65-110); Potassium 4.1 mmol/L (3.4-5.0)
[2022-08-09 12:30] LABS: Appearance Urine Clear (Clear); Bacteria Urine None Seen /hpf; Bilirubin Urine Negative (Negative); Blood Urine Negative (Negative); Color Urine Yellow (Yellow); Glucose Urine UA Trace mg/dL (Negative); Ketones Urine Trace mg/dL (Negative); Leukocyte Esterase Ur Trace LEU/UL (Negative); Nitrate Urine Negative (Negative); Non Pathogenic Casts 0-2; Protein Urine Negative (Negative); RBC Urine 0-2 /hpf (0-2); Specific Grav Ur 1.017 (1.001-1.035); Squamous Epithelial Cell Urine None seen /hpf (Few); WBC Urine 0-5 /hpf
[2022-08-09 12:31] LABS: Add Urine Microscopic? YES
--- NOTE | 2022-08-09 14:23 | ED.GENADULT ---
HPI - General Adult General Chief complaint: Unspecified Stated complaint: not as talkative per family Time Seen by Provider: 08/09/22 10:26 History of Present Illness HPI narrative: Patient is a 72-year-old male with history of Parkinson's and dementia who presents ER with decreased energy. Patient has talkative wall having a visit to [facility] today. Patient was slumped in his wheelchair. Patient has some mild discomfort in his abdomen with palpation but cannot verbalize any issues. No recent reports of nausea or vomiting. No reports of recent fevers or other illness. Related Data Home Medications Medication Instructions Recorded Confirmed albuterol sulfate 90 mcg/actuation 2 puff inhalation Q4H PRN 05/25/20 11/15/20 aerosol inhaler Shortness Of Breath Or Wheezing buspirone 5 mg tablet 5 mg PO TID 05/25/20 11/15/20 cholecalciferol (vitamin D3) 50 50 mcg PO DAILY 05/25/20 11/15/20 mcg (2,000 unit) capsule lisinopril 2.5 mg tablet 2.5 mg PO DAILY 05/25/20 08/09/22 metformin 1,000 mg tablet 1,000 mg PO BID 05/25/20 08/09/22 omeprazole 20 mg capsule,delayed 20 mg PO DAILY 05/25/20 11/15/20 release trazodone 100 mg tablet 100 mg PO HS 05/25/20 11/15/20 furosemide 40 mg tablet 40 mg PO DAILY 09/07/20 11/15/20 magnesium oxide 400 mg (241.3 mg 400 mg PO DAILY 09/07/20 11/15/20 magnesium) tablet ropinirole 1 mg tablet 1 mg PO HS 09/07/20 11/15/20 venlafaxine 150 mg 150 mg PO DAILY 09/07/20 08/09/22 capsule,extended release 24 hr insulin degludec 200 unit/mL (3 20 unit subcut HS 09/09/20 11/15/20 mL) subcutaneous pen (Tresiba FlexTouch U-200 insulin) apixaban 5 mg tablet (Eliquis) 5 mg PO DAILY 08/09/22 08/09/22 carbidopa 25 mg-levodopa 250 mg 1 tablet PO QID 08/09/22 08/09/22 tablet fenofibrate nanocrystallized 48 mg 48 mg PO DAILY 08/09/22 08/09/22 tablet ropinirole 0.5 mg tablet 0.5 mg PO HS 08/09/22 08/09/22 Allergies Allergy/AdvReac Type Severity Reaction Status Date / Time No Known Allergies Allergy Verified 08/09/22 16:39 Review of Systems Review of Systems: ROS unobtainable: Yes unobtainable due to mental status PMFSH Past Medical History Medical History Abnormal weight loss Asthma CAD (coronary artery disease) Compression fracture of L1 lumbar vertebra Depression with suicidal ideation (~09/2020) DM2 (diabetes mellitus, type 2) Dysphagia GERD (gastroesophageal reflux disease) History of adenomatous polyp of colon HLD (hyperlipidemia) HTN (hypertension) Myocardial infarction Obstructive sleep apnea no longer wears a CPAP Osteoarthritis of knees, bilateral Parkinsons Surgical History Surgical History H/O colonoscopy with polypectomy History of cataract extraction History of coronary artery stent placement x2 Hx of cholecystectomy S/P appendectomy Family History Family History Father Emphysema lung Mother Cerebrovascular accident Sibling Acute myocardial infarction Sibling Suicide Social History Social History Social History: The patient lives at [facility]. He has a son and a daughter. The patient is retired from [employer] . He is . He is a former smoker. He does not use any marijuana or alcohol. Primary care physician: Dr. La Hermosillo Code status: Full code Surrogate decision maker: Mayo (son) Smoking packs per day: 1 Smoking cigarettes per day: 20.0 Years smoked: 10 Smoking pack-years: 10.00 Smoking status: Former smoker Additional smoking assessment comments: used to smoke occasional cigar Alcohol intake: former Drinks per week: 3 Substance use: never Substance use type: does not use Living arrangements: alone Gender identity (if verbalized by the patient): Male Adalberto
--- NOTE | 2022-08-09 16:05 | ADMGEN ---
This patient, Alonzo Armenta, was admitted to Medical Room 346-. Patient/family oriented to hospital policies and general routines including ID bracelet, bed and alarms, visiting hours, pain management, procedures, bathroom and other care routines, personal items, smoking policy, room service/diet, and visiting hours. Information on how to activate the Rapid Response Team has been discussed. Patient/Family are encouraged to report perceived risks to care and to ask questions if they do not understand what they are told or what they should do.
[2022-08-09] MEDS: SODIUM CHLORIDE 0.9% IV 1,000 ML 125 ML IV CONT (18:13)
--- NOTE | 2022-08-09 19:55 | PM.IMHP ---
H&P: HPI History of Present Illness Date/Time: 08/09/22 20:45 Chief Complaint: Not talking as much as usual. Narrative: This is a 72-year-old male with multiple medical problems including dementia, Parkinson's disease, atrial fibrillation, congestive heart failure, hypertension, obstructive sleep apnea, and type 2 diabetes mellitus who presented to the emergency department via EMS from [facility] in [place] ?because he is not talking as much as usual.? He is not the best historian due to his underlying dementia and some of the following history is obtained via a review of his electronic medical records as well as information obtained from his daughter. She went to visit today and noticed that the patient was not near is interactive as he normally is with her. At baseline he is alert and oriented x2 and he seems to be at his baseline with regards to his orientation at this time. His vital signs were stable on arrival to the emergency department. His labs were reviewed and they were pretty unremarkable and close to baseline. Chest x-ray did not show any acute cardiopulmonary findings however dilated small bowel was noted and a subsequent CT of the abdomen and pelvis showed dilated small bowel without focal transition point consistent with adynamic ileus versus partial small-bowel obstruction. An NG tube was inserted emergency department though he pulled that out several hours thereafter. He has not had any vomiting since he arrived to the hospital and he complains of no abdominal pain or nausea at the time my evaluation. He also denies headache, chest pain, and shortness of breath. At the time my evaluation his only complaint is that of his IV and he is wishing for me to discontinue that. [facility] Past Medical History Medical History (Updated 08/10/22 @ 23:49 by Irena Adhikari PA-C) Abnormal weight loss Asthma CAD (coronary artery disease) Compression fracture of L1 lumbar vertebra Dementia Depression with suicidal ideation (~09/2020) Dysphagia GERD (gastroesophageal reflux disease) History of adenomatous polyp of colon HLD (hyperlipidemia) HTN (hypertension) Myocardial infarction Obstructive sleep apnea no longer wears a CPAP Osteoarthritis of knees, bilateral Parkinsons Parkinsons disease Type 2 diabetes mellitus Surgical History Surgical History H/O colonoscopy with polypectomy History of cataract extraction History of coronary artery stent placement x2 Hx of cholecystectomy S/P appendectomy Family History Family History Father Emphysema lung Mother Cerebrovascular accident Sibling Acute myocardial infarction Sibling Suicide Social History Social History (Updated 08/10/22 @ 23:50 by Irena Adhikari PA-C) Social History: Primary care physician: Dr. La Hermosillo Code status: Full code Surrogate decision maker: Mayo (son) Smoking packs per day: 1 Smoking cigarettes per day: 20.0 Years smoked: 10 Smoking pack-years: 10.00 Smoking status: Former smoker Additional smoking assessment comments: used to smoke occasional cigar Alcohol intake: former Drinks per week: 3 Substance use: never Substance use type: does not use Additional living arrangements comments: senior living. Additional occupation/education comments: Retired [employer]. Spiritual care concerns: No Meds Home Medications and Allergies Home Medications Medication Instructions Recorded Confirmed Type albuterol sulfate 90 mcg/actuation 2 puff inhalation Q4H PRN 05/25/20 08/09/22 History aerosol inhaler Shortness Of Breath Or Wheezing cholecalciferol (vitamin D3) 50 50 mcg PO DAILY 05/25/20 08/09/22 History mcg (2,000 unit) capsule lisinopril 2.5 mg tablet 2.5 mg PO DAILY 05/25/20 08/09/22 History metformin 1,000 mg tablet 1,000 mg PO BID 05/25/2008/09
[2022-08-10 05:51] LABS: Anion Gap 6 mmol/L (8-16); Blood Urea Nitrogen 16 mg/dL (9-20); Calcium 8.6 mg/dL (8.4-10.2); Carbon Dioxide 26 mmol/L (22-30); Chloride 106 mmol/L (98-107); Estimated CRCL calculation 76 ml/min; Estimated Glomerular Filt Rate > 60; Glucose 76 mg/dL (65-110); Magnesium 1.7 mg/dL (1.6-2.3); Potassium 3.9 mmol/L (3.4-5.0); Sodium 138 mmol/L (137-145)
[2022-08-10 06:00] VITALS: BP 138/82; PULSE 81; RESP 20; TEMP 36.6; O2SAT 95
[2022-08-10 06:27] LABS: Glucose Point of Care 82 mg/dl (65-105)
[2022-08-10 06:54] LABS: Hemoglobin A1C 6.7 % (<5.7)
--- NOTE | 2022-08-10 08:41 | PM.IMPN ---
Progress Note: A&P Assessment and Plan (1) Adynamic ileus: Code(s): K56.0 - Paralytic ileus Status: Acute Assessment and Plan: Suspect adynamic ileus, status post NG tube in the ER, then patient pulled it out, will leave out for now, monitor NPO, meds with sips, await bowel function to return (2) Dementia: Code(s): F03.90 - Unspecified dementia, unspecified severity, without behavioral disturbance, psychotic disturbance, mood disturbance, and anxiety Status: Acute Assessment and Plan: Stable, appears to be at baseline, monitor Continue home parkinson's med with sips (3) Parkinsons disease: Code(s): G20 - Parkinson's disease Status: Acute Assessment and Plan: Carbidopa-levodopa with sips (4) Type 2 diabetes mellitus: Code(s): E11.9 - Type 2 diabetes mellitus without complications Status: Acute Assessment and Plan: Hold metformin. Initiate sliding scale insulin, Accu-Cheks, and hypoglycemic protocol. A1c 6.7 Blood glucose reviewed 08/10 (5) Atrial fibrillation: Code(s): I48.91 - Unspecified atrial fibrillation Status: Acute Assessment and Plan: currently in sinus rhythm, monitor Plan DVT prophylaxis with Lovenox GI prophylaxis not indicated Code status DNR Subjective Date/time seen: 08/10/22 08:41 Interval history: 72-year-old male with history of dementia, heart failure, diabetes is presenting with small-bowel obstruction versus ileus, NG tube was placed and patient removed. No overnight events noted. No chest pain or shortness of breath. No nausea, vomiting or diarrhea. No fevers or chills. Review of Systems Review of Systems: ROS unobtainable: Yes unobtainable due to mental status Exam Narrative: General: No acute distress, alert and oriented per baseline HEENT: Atraumatic, normocephalic, mucous membranes moist CV: Regular rate and rhythm, S1, S2 Lungs: Clear to auscultation bilaterally, no rales or crackles noted, no wheezes, good air entry Abdomen: Soft, nontender, nondistended Extremities: Normal to inspection Skin: No rashes noted, no lesions or wounds seen Psych: Euthymic, normal affect Objective Data Vital Signs Vital Signs: Vital Signs - 24 hr 08/09/22 10:24 08/09/22 10:31 08/09/22 10:29 Temperature 97.7 F Pulse Rate 71 71 70 Respiratory Rate 19 18 Blood Pressure 136/89 136/89 Pulse Oximetry 100 100 Oxygen Delivery Room Air 08/09/22 10:31 08/09/22 10:46 08/09/22 11:01 Temperature Pulse Rate 70 72 73 Respiratory Rate 20 20 20 Blood Pressure 143/85 H 141/97 H 141/85 H Pulse Oximetry 100 97 97 Oxygen Delivery 08/09/22 11:16 08/09/22 12:22 08/09/22 12:31 Temperature Pulse Rate 72 71 67 Respiratory Rate 20 18 16 Blood Pressure 129/98 H 142/77 H 143/77 H Pulse Oximetry 98 100 99 Oxygen Delivery 08/09/22 14:21 08/09/22 15:40 08/09/22 20:43 Temperature 98.1 F Pulse Rate 77 77 88 Respiratory Rate 20 18 20 Blood Pressure 149/91 H 136/89 144/66 H Pulse Oximetry 100 97 96 Oxygen Delivery 08/10/22 06:00 Temperature 97.8 F Pulse Rate 81 Respiratory Rate 20 Blood Pressure 138/82 Pulse Oximetry 95 Oxygen Delivery Intake/Output Intake/Output: Intake & Output 08/07/22 08/08/22 08/09/22 08/10/22 23:59 23:59 23:59 23:59 Intake Total 1000 Output Total 600 Balance 400 Meds/Results Medications: Active Medications Generic Name Dose Route Start Last Admin Trade Name Freq PRN Reason Stop Dose Admin Albuterol 2 puff 08/10/22 01:14 Albuterol Sulfate (*Sp) Aerosol 1 Puff INHALATION Q4H PRN Shortness Of Breath Or Wheezing Dextrose 12.5 gm 08/10/22 01:13 Dextrose 50% 25 Gm/50 Ml Syringe IV PUSH PRN PRN Hypoglycemia Protocol Enoxaparin Sodium 40 mg 08/10/22 09:00 Enoxaparin 40 Mg/0.4 Ml Syringe SUB-Q DAILY AGNIESZKA Glucagon 1 mg 08/10/22 0
--- NOTE | 2022-08-10 09:36 | ECG_ITS ---
Measurements Intervals [place] Rate: 76 P: 84 CT: 178 QRS: -11 QRSD: 92 T: 50 QT: 411 QTc: 464 Interpretive Statements SINUS RHYTHM CANNOT RULE OUT SEPTAL INFARCT, AGE INDETERMINATE ABNORMAL ECG COMPARED TO ECG 11/15/2020 08:18:54 NO SIGNIFICANT CHANGES Electronically Signed On 08-10-2022 12:56:12 CDT by John Greco D.O.
[2022-08-10 09:37] VITALS: PULSE 82
[2022-08-10] MEDS: VENLAFAXINE HCL XR 75 MG CAP.ER.24H 150 MG PO (09:37)
[2022-08-10] MEDS: CARBIDOPA/LEVODOPA 25/250 MG TABLET 1 TABLET PO ×4 (09:37→20:31)
[2022-08-10] MEDS: AMIODARONE HCL 200 MG TABLET PO (09:37)
[2022-08-10] MEDS: ENOXAPARIN 40 MG/0.4 ML SYRINGE SUB-Q (09:39)
[2022-08-10 09:40] VITALS: PULSE 82; RESP 20; O2SAT 95
[2022-08-10 12:16] LABS: Glucose Point of Care 110 mg/dl (65-105)
[2022-08-10 14:00] VITALS: BP 150/85; PULSE 83; RESP 16; TEMP 36.8; O2SAT 97
[2022-08-10 17:24] LABS: Glucose Point of Care 105 mg/dl (65-105)
[2022-08-10 21:07] LABS: Glucose Point of Care 113 mg/dl (65-105)
[2022-08-10 21:24] VITALS: BP 149/81; PULSE 77; RESP 18; TEMP 36.7; O2SAT 96
[2022-08-11 05:16] VITALS: BP 144/78; PULSE 83; RESP 20; TEMP 36.6; O2SAT 98
[2022-08-11 05:24] LABS: Glucose Point of Care 102 mg/dl (65-105)
[2022-08-11 09:07] LABS: Glucose Point of Care 155 mg/dl (65-105)
[2022-08-11 09:40] VITALS: PULSE 75; RESP 20; O2SAT 98
[2022-08-11 09:42] VITALS: PULSE 75
[2022-08-11] MEDS: AMIODARONE HCL 200 MG TABLET PO (09:42)
[2022-08-11] MEDS: ENOXAPARIN 40 MG/0.4 ML SYRINGE SUB-Q (09:42)
[2022-08-11] MEDS: SCOPOLAMINE 1.5 MG PATCH TRANSDERM (09:43)
[2022-08-11] MEDS: VENLAFAXINE HCL XR 75 MG CAP.ER.24H 150 MG PO (09:43)
[2022-08-11] MEDS: CARBIDOPA/LEVODOPA 25/250 MG TABLET 1 TABLET PO ×4 (09:43→20:19)
[2022-08-11 12:25] LABS: Glucose Point of Care 153 mg/dl (65-105)
[2022-08-11 14:07] VITALS: BMI 23.7
[2022-08-11 14:15] VITALS: BP 142/85; PULSE 78; RESP 19; TEMP 36.2; O2SAT 97
--- NOTE | 2022-08-11 15:42 | PM.IMPN ---
Progress Note: A&P Assessment and Plan (1) Adynamic ileus: Code(s): K56.0 - Paralytic ileus Status: Acute Assessment and Plan: Suspect adynamic ileus, status post NG tube in the ER, then patient pulled it out, will leave out for now, monitor NPO, meds with sips, await bowel function to return 08/12: advance diet to full liquids, thickened, ST consult pending (2) Dementia: Code(s): F03.90 - Unspecified dementia, unspecified severity, without behavioral disturbance, psychotic disturbance, mood disturbance, and anxiety Status: Acute Assessment and Plan: Stable, appears to be at baseline, monitor Continue home parkinson's med with sips (3) Parkinsons disease: Code(s): G20 - Parkinson's disease Status: Acute Assessment and Plan: Carbidopa-levodopa with sips (4) Type 2 diabetes mellitus: Code(s): E11.9 - Type 2 diabetes mellitus without complications Status: Acute Assessment and Plan: Hold metformin. Initiate sliding scale insulin, Accu-Cheks, and hypoglycemic protocol. A1c 6.7 Blood glucose reviewed 08/10 (5) Atrial fibrillation: Code(s): I48.91 - Unspecified atrial fibrillation Status: Acute Assessment and Plan: currently in sinus rhythm, monitor Plan DVT prophylaxis with Lovenox GI prophylaxis not indicated Code status DNR Subjective Date/time seen: 08/11/22 15:42 Interval history: 72-year-old male with history of dementia, heart failure, diabetes is presenting with small-bowel obstruction versus ileus, NG tube was placed and patient removed. No overnight events noted. No chest pain or shortness of breath. No nausea, vomiting or diarrhea. No fevers or chills. Choking on thin liquids per nursing staff. Review of Systems Review of Systems: ROS unobtainable: Yes unobtainable due to mental status Exam Narrative: General: No acute distress, alert and oriented per baseline HEENT: Atraumatic, normocephalic, mucous membranes moist CV: Regular rate and rhythm, S1, S2 Lungs: Clear to auscultation bilaterally, no rales or crackles noted, no wheezes, good air entry Abdomen: Soft, nontender, nondistended Extremities: Normal to inspection Skin: No rashes noted, no lesions or wounds seen Psych: Euthymic, normal affect Objective Data Vital Signs Vital Signs: Vital Signs - 24 hr 08/10/22 21:24 08/11/22 05:16 08/11/22 09:42 Temperature 98.1 F 97.9 F Pulse Rate 77 83 75 Respiratory Rate 18 20 Blood Pressure 149/81 H 144/78 H Pulse Oximetry 96 98 Oxygen Delivery 08/11/22 09:40 08/11/22 14:15 Temperature 97.2 F L Pulse Rate 75 78 Respiratory Rate 20 19 Blood Pressure 142/85 H Pulse Oximetry 98 97 Oxygen Delivery Room Air Intake/Output Intake/Output: Intake & Output 08/08/22 08/09/22 08/10/22 08/11/22 23:59 23:59 23:59 23:59 Intake Total 1000 1560 Output Total 600 450 Balance 400 -450 1560 Meds/Results Medications: Active Medications Generic Name Dose Route Start Last Admin Trade Name Freq PRN Reason Stop Dose Admin Albuterol 2 puff 08/10/22 01:14 Albuterol Sulfate (*Sp) Aerosol 1 Puff INHALATION Q4H PRN Shortness Of Breath Or Wheezing Amiodarone HCl 200 mg 08/10/22 10:00 08/11/22 09:42 Amiodarone Hcl 200 Mg Tablet PO 200 mg DAILY AGNIESZKA Administration Carbidopa/Levodopa 1 tablet 08/10/22 10:00 08/11/22 12:13 Carbidopa/Levodopa 25/250 Mg Tablet PO 1 tablet QID AGNIESZKA Administration Dextrose 12.5 gm 08/10/22 01:13 Dextrose 50% 25 Gm/50 Ml Syringe IV PUSH PRN PRN Hypoglycemia Protocol Enoxaparin Sodium 40 mg 08/10/22 09:00 08/11/22 09:42 Enoxaparin 40 Mg/0.4 Ml Syringe SUB-Q 40 mg DAILY AGNIESZKA Administration Glucagon 1 mg 08/10/22 01:13 Glucagon For Inj 1 Mg Vial IM PRN PRN Hypoglycemia Protocol Glucose 15 gm 08/10/22 01:13 Glucose Oral Gel 15
[2022-08-11 17:22] LABS: Glucose Point of Care 158 mg/dl (65-105)
[2022-08-11 19:25] LABS: Basophils Percent Auto 0.5 % (0.2-1.2); Eosinophils Absolute Auto 0.1 K/mm3 (0-0.3); Eosinophils Percent Auto 1.5 % (0-4.4); Hematocrit 37.4 % (42.0-52.0); Hemoglobin 12.6 g/dL (14.0-18.0); Immature Granulocyte Absolute 0.05 K/mm3 (0.00-0.031); Immature Granulocyte Percent A 0.6 % (0-0.5); Lymphocytes Absolute Auto 1.31 K/mm3 (0.9-3.2); Lymphocytes Percent Auto 15.4 % (18.3-44.2); Mean Corpuscular HGB Conc 33.7 g/dl (32-36); Mean Corpuscular Volume 86.2 fl (80-100); Mean Platelet Volume 8.4 fl (7.4-10.4); Monocytes Absolute Auto 0.9 K/mm3 (0.1-0.6); Monocytes Percent Auto 10.8 % (2.6-8.5); Neutrophils Percent Auto 71.2 % (45.5-73.1); Platelet Count Result 300 k/mm3 (150-375); Red Blood Count 4.34 M/mm3 (4.6-6.20); White Blood Count 8.5 K/mm3 (4.5-10.0)
[2022-08-11 19:38] LABS: Alanine Aminotransferase 15 U/L (6-50); Albumin Level 4.3 g/dL (3.5-5.1); Alkaline Phosphatase 64 U/L (38-126); Anion Gap 10 mmol/L (8-16); Aspartate Amino Transferase 31 U/L (17-59); Bilirubin,Total 0.7 mg/dL (0.2-1.3); Blood Urea Nitrogen 13 mg/dL (9-20); Calcium 8.4 mg/dL (8.4-10.2); Carbon Dioxide 24 mmol/L (22-30); Chloride 96 mmol/L (98-107); Estimated CRCL calculation 86 ml/min; Estimated Glomerular Filt Rate > 60; Glucose 226 mg/dL (65-110); Potassium 3.3 mmol/L (3.4-5.0); Sodium 130 mmol/L (137-145)
[2022-08-11 21:37] VITALS: BP 97/60; PULSE 76; RESP 116; TEMP 36.5; O2SAT 97
[2022-08-11 23:23] LABS: Glucose Point of Care 176 mg/dl (65-105)
[2022-08-12 05:14] VITALS: BP 115/64; PULSE 76; RESP 16; TEMP 36.4; O2SAT 97
[2022-08-12 05:52] LABS: Glucose Point of Care 188 mg/dl (65-105)
[2022-08-12 06:10] LABS: Basophils Percent Auto 0.5 % (0.2-1.2); Eosinophils Absolute Auto 0.1 K/mm3 (0-0.3); Eosinophils Percent Auto 1.5 % (0-4.4); Hematocrit 39.4 % (42.0-52.0); Hemoglobin 13.2 g/dL (14.0-18.0); Immature Granulocyte Absolute 0.05 K/mm3 (0.00-0.031); Immature Granulocyte Percent A 0.6 % (0-0.5); Lymphocytes Absolute Auto 1.05 K/mm3 (0.9-3.2); Lymphocytes Percent Auto 11.8 % (18.3-44.2); Mean Corpuscular HGB Conc 33.5 g/dl (32-36); Mean Corpuscular Volume 86.6 fl (80-100); Mean Platelet Volume 8.5 fl (7.4-10.4); Monocytes Percent Auto 11.5 % (2.6-8.5); Neutrophils Absolute Auto 6.6 K/mm3 (1.3-6.7); Neutrophils Percent Auto 74.1 % (45.5-73.1); Platelet Count Result 330 k/mm3 (150-375); Red Blood Count 4.55 M/mm3 (4.6-6.20); Red Cell Distribution Width 13.2 % (11.5-14.5); White Blood Count 8.9 K/mm3 (4.5-10.0)
[2022-08-12 06:24] LABS: Alanine Aminotransferase 16 U/L (6-50); Albumin Level 4.5 g/dL (3.5-5.1); Alkaline Phosphatase 81 U/L (38-126); Anion Gap 11 mmol/L (8-16); Aspartate Amino Transferase 28 U/L (17-59); Bilirubin,Total 0.7 mg/dL (0.2-1.3); Blood Urea Nitrogen 11 mg/dL (9-20); Calcium 8.8 mg/dL (8.4-10.2); Carbon Dioxide 24 mmol/L (22-30); Chloride 100 mmol/L (98-107); Estimated CRCL calculation 76 ml/min; Estimated Glomerular Filt Rate > 60; Glucose 177 mg/dL (65-110); Potassium 3.6 mmol/L (3.4-5.0); Sodium 135 mmol/L (137-145)
[2022-08-12 09:00] VITALS: PULSE 76
[2022-08-12] MEDS: CARBIDOPA/LEVODOPA 25/250 MG TABLET 1 TABLET PO (09:00)
[2022-08-12] MEDS: ENOXAPARIN 40 MG/0.4 ML SYRINGE SUB-Q (09:00)
[2022-08-12] MEDS: AMIODARONE HCL 200 MG TABLET PO (09:00)
[2022-08-12] MEDS: VENLAFAXINE HCL XR 75 MG CAP.ER.24H 150 MG PO (09:00)
--- NOTE | 2022-08-12 09:44 | PCSTNOTE ---
Please refer to the Bedside Swallow Evaluation in the EMR. Please note, silent aspiration cannot be ruled out at bedside.
--- NOTE | 2022-08-12 11:39 | PM.IMPN ---
Progress Note: A&P Assessment and Plan (1) Adynamic ileus: Code(s): K56.0 - Paralytic ileus Status: Acute Assessment and Plan: Suspect adynamic ileus, status post NG tube in the ER, then patient pulled it out, will leave out for now, monitor NPO, meds with sips, await bowel function to return 08/12: MBS showed aspiration, ST rec NPO due to severe weakness, will likely need PEG tube for safe po intake senior care (2) Dementia: Code(s): F03.90 - Unspecified dementia, unspecified severity, without behavioral disturbance, psychotic disturbance, mood disturbance, and anxiety Status: Acute Assessment and Plan: Stable, at baseline (3) Parkinsons disease: Code(s): G20 - Parkinson's disease Status: Acute Assessment and Plan: Hold meds while npo (4) Type 2 diabetes mellitus: Code(s): E11.9 - Type 2 diabetes mellitus without complications Status: Acute Assessment and Plan: Hold metformin. Initiate sliding scale insulin, Accu-Cheks, and hypoglycemic protocol. A1c 6.7 Blood glucose reviewed 08/12 (5) Atrial fibrillation: Code(s): I48.91 - Unspecified atrial fibrillation Status: Acute Assessment and Plan: currently in sinus rhythm, monitor Plan 08/12: Spoke with daughter Kaity regarding severe aspiration risk and she was well aware of implications and concern. She will discuss PEG vs hospice and free feeding with her father today and they will make a decision tomorrow to either go back to the facility with hospice care or have a PEG tube placed for safe nutrition. Patient to be npo for now. DVT prophylaxis with Lovenox GI prophylaxis not indicated Code status DNR Subjective Date/time seen: 08/12/22 11:39 Interval history: 72-year-old male with history of dementia, heart failure, diabetes is presenting with small-bowel obstruction versus ileus, NG tube was placed and patient removed. No overnight events noted. No chest pain or shortness of breath. No nausea, vomiting or diarrhea. No fevers or chills. He is eager to eat and is very upset he cannot. Review of Systems Review of Systems: ROS unobtainable: Yes unobtainable due to mental status Exam Narrative: General: No acute distress, alert and oriented per baseline HEENT: Atraumatic, normocephalic, mucous membranes moist CV: Regular rate and rhythm, S1, S2 Lungs: Clear to auscultation bilaterally, no rales or crackles noted, no wheezes, good air entry Abdomen: Soft, nontender, nondistended Extremities: Normal to inspection Skin: No rashes noted, no lesions or wounds seen Psych: Euthymic, normal affect Objective Data Vital Signs Vital Signs: Vital Signs - 24 hr 08/11/22 14:15 08/11/22 21:37 08/12/22 05:14 Temperature 97.2 F L 97.7 F 97.6 F Pulse Rate 78 76 76 Respiratory Rate 19 116 H 16 Blood Pressure 142/85 H 97/60 L 115/64 Pulse Oximetry 97 97 97 Oxygen Delivery 08/12/22 09:00 08/12/22 09:00 08/12/22 11:19 Temperature Pulse Rate 76 Respiratory Rate Blood Pressure Pulse Oximetry Oxygen Delivery Room Air Room Air Intake/Output Intake/Output: Intake & Output 08/09/22 08/10/22 08/11/22 08/12/22 23:59 23:59 23:59 23:59 Intake Total 1000 3100 240 Output Total 600 450 800 200 Balance 400 -450 2300 40 Meds/Results Medications: Active Medications Generic Name Dose Route Start Last Admin Trade Name Freq PRN Reason Stop Dose Admin Albuterol 2 puff 08/10/22 01:14 Albuterol Sulfate (*Sp) Aerosol 1 Puff INHALATION Q4H PRN Shortness Of Breath Or Wheezing Amiodarone HCl 200 mg 08/10/22 10:00 08/12/22 09:00 Amiodarone Hcl 200 Mg Tablet PO 200 mg DAILY AGNIESZKA Administration Carbidopa/Levodopa 1 tablet 08/10/22 10:00 08/12/22 09:00 Carbidopa/Levodopa 25/250 Mg Tablet PO 1 tablet QID AGNIESZKA Administration Dextrose 12.5 gm 08/10/22 01:13 Dextrose 50% 25 Gm/5
--- NOTE | 2022-08-12 12:02 | PCSTNOTE ---
Please refer to the Modified Barium Swallow Evaluation in the EMR.
[2022-08-12 12:17] LABS: Glucose Point of Care 216 mg/dl (65-105)
[2022-08-12] MEDS: INSULIN ASPART (*BKC) 100 UNITS/ML SUB-Q (12:27)
[2022-08-12 14:00] VITALS: BP 117/74; PULSE 79; RESP 18; TEMP 37.2; O2SAT 99
[2022-08-12 16:54] LABS: Glucose Point of Care 110 mg/dl (65-105)
[2022-08-12 20:08] VITALS: BP 128/99; PULSE 80; RESP 19; TEMP 36.9; O2SAT 100
[2022-08-12 20:39] LABS: Glucose Point of Care 155 mg/dl (65-105)
[2022-08-13 06:19] LABS: Basophils Absolute Auto 0.1 K/mm3 (0.0-0.1); Basophils Percent Auto 0.4 % (0.2-1.2); Eosinophils Absolute Auto 0.2 K/mm3 (0-0.3); Eosinophils Percent Auto 1.8 % (0-4.4); Hematocrit 42.4 % (42.0-52.0); Hemoglobin 14.3 g/dL (14.0-18.0); Immature Granulocyte Absolute 0.05 K/mm3 (0.00-0.031); Immature Granulocyte Percent A 0.4 % (0-0.5); Lymphocytes Percent Auto 14.3 % (18.3-44.2); Mean Corpuscular HGB Conc 33.7 g/dl (32-36); Mean Corpuscular Hemoglobin 29.3 pg (26-34); Mean Corpuscular Volume 86.9 fl (80-100); Mean Platelet Volume 8.7 fl (7.4-10.4); Monocytes Absolute Auto 1.3 K/mm3 (0.1-0.6); Monocytes Percent Auto 11.9 % (2.6-8.5); Neutrophils Percent Auto 71.2 % (45.5-73.1); Platelet Count Result 355 k/mm3 (150-375); Red Blood Count 4.88 M/mm3 (4.6-6.20); Red Cell Distribution Width 13.3 % (11.5-14.5); White Blood Count 11.2 K/mm3 (4.5-10.0)
[2022-08-13 06:40] LABS: Alanine Aminotransferase 25 U/L (6-50); Albumin Level 4.8 g/dL (3.5-5.1); Alkaline Phosphatase 86 U/L (38-126); Anion Gap 12 mmol/L (8-16); Aspartate Amino Transferase 35 U/L (17-59); Bilirubin,Total 0.9 mg/dL (0.2-1.3); Blood Urea Nitrogen 19 mg/dL (9-20); Calcium 9.3 mg/dL (8.4-10.2); Carbon Dioxide 23 mmol/L (22-30); Chloride 104 mmol/L (98-107); Estimated CRCL calculation 52 ml/min; Estimated Glomerular Filt Rate 60; Glucose 160 mg/dL (65-110); Potassium 3.8 mmol/L (3.4-5.0); Sodium 139 mmol/L (137-145)
--- NOTE | 2022-08-13 06:57 | PC.NURSE ---
Paper documentation exists on this patient due to [employer] downtime on 08/12/22 2200 from to [08/13/22 0600] .
[2022-08-13 08:28] LABS: Glucose Point of Care 164 mg/dl (65-105)
[2022-08-13] MEDS: ENOXAPARIN 40 MG/0.4 ML SYRINGE SUB-Q (09:26)
--- NOTE | 2022-08-13 10:28 | PM.IMPN ---
Progress Note: A&P Assessment and Plan (1) Adynamic ileus: Code(s): K56.0 - Paralytic ileus Status: Acute Assessment and Plan: Suspect adynamic ileus, status post NG tube in the ER, then patient pulled it out, will leave out for now, monitor NPO, meds with sips, await bowel function to return. Repeat x-ray showing nonobstructive bowel gas pattern on 08/10/2022. He has been having bowel movement since admission. Continue to monitor. (2) Dysphagia: Qualifiers: Dysphagia type: unspecified Qualified Code(s): R13.10 - Dysphagia, unspecified Code(s): R13.10 - Dysphagia, unspecified Status: Acute Assessment and Plan: MBS showed aspiration, ST rec NPO due to severe weakness, will likely need PEG tube for safe po intake long-term. Spoke with patient who is adamantly against having a feeding tube. Explained the risks of oral intake which include respiratory failure, pneumonia and even . He voices understanding of this but again asks for oral food and does not want a feeding tube. I discussed Hospice with patient if he does not want feeding tube. Will discuss with family as well (3) Dementia: Code(s): F03.90 - Unspecified dementia, unspecified severity, without behavioral disturbance, psychotic disturbance, mood disturbance, and anxiety Status: Acute Assessment and Plan: Stable, at baseline (4) Parkinsons disease: Code(s): G20 - Parkinson's disease Status: Acute Assessment and Plan: Stable. Holding oral medications at this time. Resume when able. (5) Type 2 diabetes mellitus: Code(s): E11.9 - Type 2 diabetes mellitus without complications Status: Acute Assessment and Plan: Holding metformin. Continue sliding scale insulin, Accu-Cheks, and hypoglycemic protocol. A1c 6.7 Blood glucose reviewed 08/13 (6) Atrial fibrillation: Code(s): I48.91 - Unspecified atrial fibrillation Status: Acute Assessment and Plan: currently in sinus rhythm, monitor Plan DVT prophylaxis with Lovenox GI prophylaxis not indicated Code status DNR Subjective Date/time seen: 08/13/22 10:28 Interval history: 72-year-old male with history of dementia, heart failure, diabetes is presenting with small-bowel obstruction versus ileus, NG tube was placed and patient removed. Assuming care. Chart reviewed. He is alert and mostly oriented. He denies any abdominal pain or chest pain. He denies any flatus or bowel movements. Exam Narrative: General: No acute distress HEENT: Atraumatic, normocephalic, mucous membranes moist CV: Regular rate and rhythm, S1, S2 Lungs: Clear to auscultation bilaterally Abdomen: Soft, nontender, nondistended, +BS Extremities: No edema Skin: No rashes noted, no lesions or wounds seen Psych: Euthymic, normal affect Neuro: AOx3 (not month), dysarthric speech Objective Data Vital Signs Vital Signs: Vital Signs - 24 hr 08/12/22 11:19 08/12/22 11:28 08/12/22 14:00 Temperature 98.9 F Pulse Rate 79 Respiratory Rate 18 Blood Pressure 117/74 Pulse Oximetry 99 Oxygen Delivery Room Air Room Air 08/12/22 20:08 08/12/22 20:00 Temperature 98.5 F Pulse Rate 80 Respiratory Rate 19 Blood Pressure 128/99 H Pulse Oximetry 100 Oxygen Delivery Room Air Intake/Output Intake/Output: Intake & Output 08/10/22 08/11/22 08/12/22 08/13/22 23:59 23:59 23:59 23:59 Intake Total 3100 240 Output Total 450 800 700 Balance -450 2300 -460 Meds/Results Medications: Active Medications Generic Name Dose Route Start Last Admin Trade Name Freq PRN Reason Stop Dose Admin Albuterol 2 puff 08/10/22 01:14 Albuterol Sulfate (*Sp) Aerosol 1 Puff INHALATION Q4H PRN Shortness Of Breath Or Wheezing Amiodarone HCl 200 mg 08/10/22 10:00 08/12/22 09:00 Amiodarone Hcl 200 Mg Tablet PO 200 mg DAILY AGNIESZKA Admin
[2022-08-13 12:22] LABS: Glucose Point of Care 152 mg/dl (65-105)
[2022-08-13 14:00] VITALS: BP 124/70; PULSE 91; RESP 20; TEMP 36.6; O2SAT 96
--- NOTE | 2022-08-13 15:05 | PM.DS ---
DS: Admitting Diagnosis Discharge Date 08/13/22 Admitting Diagnosis Change in mental status DS: Discharge Diagnosis Discharge Diagnosis (1) Adynamic ileus: Code(s): K56.0 - Paralytic ileus Status: Acute (2) Dysphagia: Qualifiers: Dysphagia type: unspecified Qualified Code(s): R13.10 - Dysphagia, unspecified Code(s): R13.10 - Dysphagia, unspecified Status: Acute (3) Dementia: Code(s): F03.90 - Unspecified dementia, unspecified severity, without behavioral disturbance, psychotic disturbance, mood disturbance, and anxiety Status: Acute (4) Parkinsons disease: Code(s): G20 - Parkinson's disease Status: Acute (5) Type 2 diabetes mellitus: Code(s): E11.9 - Type 2 diabetes mellitus without complications Status: Acute (6) Atrial fibrillation: Code(s): I48.91 - Unspecified atrial fibrillation Status: Acute DS: Summary Hospital Course Reason for hospitalization: 72-year-old male with history of dementia, heart failure, diabetes is presenting with small-bowel obstruction versus ileus, NG tube was placed and patient removed. Hospital Course: His vital signs were stable on arrival to the emergency department. CXR showing no acute cardiopulmonary findings however dilated small bowel was noted. CT of the abdomen and pelvis showed dilated small bowel without focal transition point consistent with adynamic ileus versus partial small-bowel obstruction. An NG tube was inserted though he pulled that out several hours thereafter. Serial abdominal xray showed resolution of the ileus. He has been having bowel movement since admission.? MBS showed aspiration. Speech therapy recommended NPO. He will likely need PEG tube for safe oral intake fci.? Spoke with patient who is adamantly against having a feeding tube.? Explained the risks of oral intake which includes but not limited to respiratory failure, pneumonia and even .? He voices understanding of this.? I discussed Hospice with patient if he does not want feeding tube and he was agreeable. Spoke with the POA who also did not want to proceed with PEG placement. She voiced understanding of the risks of aspiration and is agreeable for hospice. POA also agreeable for stopping some of the patient's home medications. Spoke with speech therapy who provided a diet that would minimize aspiration but he would still be high risk for aspiration. Patient was able to be discharged back to the senior care with hospice consult. Status at Discharge Cognitive/behavioral status at discharge: Stable Time Spent with Patient Time attestation: Total time spent providing and/or coordinating discharge services: 40 minutes Time spent: Greater than 30 minutes Exam Narrative: General: No acute distress HEENT: Atraumatic, normocephalic, mucous membranes moist CV: Regular rate and rhythm, S1, S2 Lungs: Clear to auscultation bilaterally Abdomen: Soft, nontender, nondistended, +BS Extremities: No edema Skin: No rashes noted, no lesions or wounds seen Psych: Euthymic, normal affect Neuro: AOx3 (not month), dysarthric speech DS: Data Data Completed and Pending Labs on day of discharge: Labs from last 24 hours 08/13/22 08/13/22 08/13/22 12:16 08:22 05:49 WBC 11.2 H RBC 4.88 Hgb 14.3 Hct 42.4 MCV 86.9 MCH 29.3 MCHC 33.7 RDW 13.3 Plt Count 355 MPV 8.7 Immature Gran % (Auto) 0.4 Neut % (Auto) 71.2 Lymph % (Auto) 14.3 L [place] % (Auto) 11.9 H Eos % (Auto) 1.8 Baso % (Auto) 0.4 Lymph # (Auto) 1.60 [place] # (Auto) 1.3 H Eos # (Auto) 0.2 Baso # (Auto) 0.1 Abs Immat Gran (auto) 0.05 H Absolute Neuts (auto) 8.0 H Absolute Nucleated RBC 0.0 Nucleated RBC % 0.0 Sodium 139 Potassium 3.8 Chloride 104 Carbon Dioxide 23 Anion Gap 12 BUN 19 Creatinine 1.20 Estim Creat Clear Calc 52 Estimate
== END 2022-08-13 17:15 | disposition hospice, home (50) | DRG 390 ==
LOC: ANHED 10:47 → ANH3MED 17:26
PROVIDERS: Physician Assistant; Admitting Provider Student in an Organized Health Care Education/Training Program; Emergency Provider Emergency Medicine; PCP Internal Medicine; Visit Provider Internal Medicine
DX: K56.0 Paralytic ileus (principal); R13.10 Dysphagia, unspecified; F03.90 Unspecified dementia, unspecified severity, without behavioral disturbance, psychotic disturbance, mood disturbance, and anxiety; G20 Parkinson's disease; I48.91 Unspecified atrial fibrillation; E11.9 Type 2 diabetes mellitus without complications; I25.10 Atherosclerotic heart disease of native coronary artery without angina pectoris; K21.9 Gastro-esophageal reflux disease without esophagitis; E78.5 Hyperlipidemia, unspecified; I10 Essential (primary) hypertension; G47.33 Obstructive sleep apnea (adult) (pediatric); M17.0 Bilateral primary osteoarthritis of knee; Z66 Do not resuscitate; I25.2 Old myocardial infarction; Z90.49 Acquired absence of other specified parts of digestive tract; Z95.5 Presence of coronary angioplasty implant and graft; Z87.891 Personal history of nicotine dependence
CPT/HCPCS: 36415; 71046; 73502; 74019; 74177; 80048; 80053; 81001; 82948; 83036; 83735; 84443; 85025; 92526; 92610; 92611; 93005; 96360; 97161; 97165; 99285; A9270; J1650; J1815; J7030; Q9967